=== PATIENT | male | born 1955 | race Caucasian/White ===

== ENCOUNTER → 2020-07-31 10:29 | Outpatient (BNVA) | payer OTHER, SELFPAY | PROVIDERS: PCP Family Medicine; Referring Provider Family Medicine; Visit Provider Internal Medicine Cardiovascular Disease | DX: I48.0 Paroxysmal atrial fibrillation (principal); I10 Essential (primary) hypertension; Z79.01 Long term (current) use of anticoagulants; Z79.899 Other long term (current) drug therapy | CPT/HCPCS: 93005 ==

== ENCOUNTER → 2020-08-11 08:21 | Outpatient (REF) | payer OTHER, SELFPAY ==
--- NOTE | 2020-08-11 | NM_ITS ---
EXERCISE MYOCARDIAL PERFUSION STUDY INDICATION: Atrial fibrillation, on flecainide, assess for coronary disease and ischemia TECHNIQUE: The patient was brought in for an exercise perfusion study on 08/11/2020. Patient performed exercise as per Jian protocol and was injected 30 mCi of sestamibi once target heart rate was achieved. Images were obtained using the SPECT gamma camera interlaced with the gating device. Images were obtained in supine position. Resting perfusion study was performed on 08/12/2020. Patient was administered 30 mCi of sestamibi intravenously at rest. Images were then obtained in supine position. Total DLP 90mGy-cm. Images were processed with the software and compared side to side in short axis, horizontal long axis and vertical long axis views. FINDINGS: Raw images were reviewed. The stress perfusion study showed no significant perfusion abnormality. Both uncorrected as well as CT attenuation corrected images were reviewed. The gated study shows normal LV systolic function with calculated LVEF of 66%. LV cavity is normal in size. The gated study shows normal wall thickening and contraction of segments. Resting study shows diminished tracer uptake along the inferior wall that improves with CT attenuation correction, suggesting diaphragmatic artifact. Gating at rest reveals normal wall motion with ejection fraction at 58%. The findings are consistent with no definite reversible or fixed perfusion defects. NM/NM ken perf SPECT rest & str IMPRESSION: 1. Myocardial perfusion imaging study shows likely normal myocardial perfusion. No definitive evidence of any ischemia or infarction. 2. Gated LVEF is 66% during stress and 58% during rest. 3. Transient ischemic dilatation not present. EKG component of the test reported separately.
--- NOTE | 2020-08-11 08:25 | CA_ITS ---
Acquisition Time: 2020-08-11 09:37:17 Total Exercise Time: 00:06:04 Test Indications: Abnormal ECG Medications: AMLODIPINE FLECAINIDE METOPROLOL LISINOPRIL/HCTZ ELIQUIS TRAZADONE ALBUTROL Protocol: VINCENZO Max HR: 139 BPM 88% of Pred: 157 BPM Max BP: 138/080 mmHG Max Work Load: 7.2 METS Exercise nuclear using Vincenzo protocol total of 6 min 4 sec.METS 7.2 . Pt tolerated well, denies any anginal sx. EKG with occ. PVC's in recovery period. No ischemic changes. Nuclear images to follow. Normotensive response to exercise. Test reviewed with Dr. Galaviz. Referred By: Lyn Rojo Overread By: Kin Smith
== END ==
LOC: HO.CARD 08:21
PROVIDERS: PCP Family Medicine; Visit Provider Nurse Practitioner Family
DX: I48.0 Paroxysmal atrial fibrillation (principal); I10 Essential (primary) hypertension
CPT/HCPCS: 78452; 93017; J2805

== ENCOUNTER 2020-09-02 | Outpatient (REF) | payer OTHER, SELFPAY | END 2020-09-02 00:01 | disposition home or self-care (01) | LOC: HO.LNP | PROVIDERS: Visit Provider Hospitalist | DX: Z20.828 Contact with and (suspected) exposure to other viral communicable diseases (principal) | CPT/HCPCS: U0003 ==

== ENCOUNTER 2020-09-23 10:18 | Outpatient (REF) | payer OTHER, SELFPAY ==
[2020-09-23 10:54] LABS: Basophils Percent Auto 0.6 % (0-2); Eosinophils Absolute Auto 0.1 X10*3/uL (0.0-0.4); Eosinophils Percent Auto 1.3 % (0-4); Hematocrit 41.8 % (42-52); Hemoglobin 14.3 g/dl (14.0-18.0); Imm Gran Abs Auto 0.01 X10*3/uL (0.00-0.03); Imm Gran Pct Auto 0.2 % (0.0-0.4); Lymphocytes Absolute Auto 3.5 X10*3/uL (1.2-4.9); Lymphocytes Percent Auto 56.6 % (20-40); Mean Corpuscular HGB Conc 34.2 g/dl (31.0-36.0); Mean Corpuscular Volume 99.5 fL (80-98); Mean Platelet Volume 9.6 fL (9.4-12.4); Monocytes Absolute Auto 0.5 X10*3/uL (0.1-1.2); Monocytes Percent Auto 8.1 % (2-11); Neutrophils Absolute Auto 2.1 X10*3/uL (2.0-8.3); Neutrophils Percent Auto 33.2 % (45-73); Platelet Count 177 X10*3/uL (160-400); Red Cell Distribution Width 12.5 % (11.0-16.0); SCAN SMEAR FLAG 1; White Blood Count 6.2 X10*3/uL (4.8-10.8)
[2020-09-23 11:20] LABS: Alanine Aminotransferase 18 U/L (0-40); Alkaline Phosphatase 80 U/L (39-117); Anion Gap 9 (12-20); Aspartate Amino Transferase 18 U/L (5-37); Bilirubin Total 0.6 mg/dL (0.0-1.0); Blood Urea Nitrogen 11 mg/dL (9-16); Calcium 8.7 mg/dL (8.4-10.2); Carbon Dioxide 32 mmol/L (22-29); Chloride 103 mmol/L (96-108); Estimated Glomerular Filt Rate > 60; Glucose Random 98 mg/dL (60-115); Potassium 3.8 mmol/l (3.3-5.1); Sodium 140 mmol/L (135-145); Total Protein 7.4 g/dL (6.5-8.0)
[2020-09-23 11:54] LABS: MANUAL DIFF FLAG SCAN
[2020-09-23 11:55] LABS: SLIDE REVIEW VERIFIED
== END 2020-09-23 10:19 | disposition home or self-care (01) ==
LOC: HO.WFDLDS 10:18
PROVIDERS: Visit Provider Family Medicine
DX: R53.83 Other fatigue (principal); Z00.00 Encounter for general adult medical examination without abnormal findings
CPT/HCPCS: 36415; 80053; 84443; 85025

== ENCOUNTER → 2020-10-27 12:47 | Outpatient (BNVA) | payer OTHER, SELFPAY | PROVIDERS: PCP Family Medicine; Visit Provider Internal Medicine Cardiovascular Disease | DX: I48.0 Paroxysmal atrial fibrillation (principal); I10 Essential (primary) hypertension; Z79.01 Long term (current) use of anticoagulants | CPT/HCPCS: 93005 ==

== ENCOUNTER → 2020-11-26 09:23 | Outpatient (REF) | payer OTHER, SELFPAY ==
--- NOTE | 2020-11-26 09:25 | CA_ITS ---
Transthoracic Echocardiogram Patient (Last, First, Middle): Price Florence A Gender: Male Date of : 1955 Age: 65 Procedure Date: 11/26/2020 Procedure Type: Transthoracic Echocardiogram Location: OP Height: 182.88 cm Weight: 97.52 kg BSA: 2.20 m2 Heart Rate: bpm BP: 118 / 56 mmHg Parcel Wrapper: Referring MD: Gonzalo Luna MD Opening Machine Cleaner: Khang Main MD Symptoms: I48.0 - Paroxysmal atrial fibrillation Study Quality: Fair ECG Rhythm: Sinus Conclusions: - Normal LV systolic function with grade 1 diastolic dysfunction Findings Left Ventricle Normal left ventricular size, thickness, and systolic function. The visually estimated ejection fraction is between 55-60%. Spectral Doppler is indicative of an impaired relaxation filling pattern. E/E prime ratio is <8, consistent with normal filling pressures. Evidence suggests grade I (mild) diastolic dysfunction. Right Ventricle Mildly increased right ventricular cavity size. There is normal right ventricular systolic function. Pericardium/Pleural There is no evidence of pericardial effusion. Prior Study Comparison Changes noted compared to prior study dated: 05/30/2020. LV systolic function is normal Measurements 2D Linear Measurements IVSd: 0.99 0.6-0.9/0.6-1.0 cm LVIDd: 4.51 3.9-5.3/4.2-5.9 cm LVIDd Index: 2.05 2.4-3.2/2.2-3.1 cm/m2 LVIDs: 3.17 2.0-3.6 cm LVPWd: 0.99 0.7-1.1 cm LV Mass: 249.23 67-162/88-224 g LV Mass Index: 113.28 43-95/49-115 g/m2 2D Systolic Function EF 4C: 50.30 >55% EF 2C: 49.20 >55% Tricuspid Valve TR Pk Higinio: 1.22 TR Pk Grad: 6.00 Updated in Other Vendor System with Status of Final Khang Main MD electronically signed on 11/27/2020 11:19:39 AM with status of Final
== END ==
LOC: HO.CARD 09:23
PROVIDERS: PCP Family Medicine; Visit Provider Internal Medicine Cardiovascular Disease
DX: I48.0 Paroxysmal atrial fibrillation (principal)
CPT/HCPCS: 93308

== ENCOUNTER 2020-12-26 14:08 | Outpatient (REF) | payer OTHER, SELFPAY ==
[2020-12-26 14:55] LABS: Creatinine Urine 193.67 mg/dL; Microalbum/Creatinine Ratio Ur 4.6 ug/mg cr
== END 2020-12-26 14:09 | disposition home or self-care (01) ==
LOC: HO.LNP 14:08
PROVIDERS: Visit Provider Family Medicine
DX: I10 Essential (primary) hypertension (principal)
CPT/HCPCS: 82043

== ENCOUNTER → 2021-01-14 14:22 | Outpatient (BNVA) | payer OTHER, SELFPAY | PROVIDERS: PCP Family Medicine; Visit Provider Internal Medicine Cardiovascular Disease ==

== ENCOUNTER 2021-05-28 11:26 | Outpatient (REF) | payer OTHER, SELFPAY ==
[2021-05-28 14:32] LABS: MANUAL DIFF FLAG NO
[2021-05-28 14:34] LABS: Basophils Percent Auto 0.5 % (0-2); Eosinophils Percent Auto 0.5 % (0-4); Hematocrit 44.3 % (42-52); Hemoglobin 15.5 g/dl (14.0-18.0); Imm Gran Abs Auto 0.03 X10*3/uL (0.00-0.03); Imm Gran Pct Auto 0.5 % (0.0-0.4); Lymphocytes Absolute Auto 1.6 X10*3/uL (1.2-4.9); Lymphocytes Percent Auto 27.2 % (20-40); Mean Corpuscular Hemoglobin 34.4 pg (27.0-33.0); Mean Corpuscular Volume 98.2 fL (80-98); Mean Platelet Volume 10.6 fL (9.4-12.4); Monocytes Absolute Auto 0.4 X10*3/uL (0.1-1.2); Monocytes Percent Auto 7.5 % (2-11); Neutrophils Absolute Auto 3.8 X10*3/uL (2.0-8.3); Neutrophils Percent Auto 63.8 % (45-73); Platelet Count 206 X10*3/uL (160-400); Red Blood Count 4.51 X10*6/uL (4.60-5.80); White Blood Count 5.9 X10*3/uL (4.8-10.8)
[2021-05-28 15:02] LABS: Cholesterol 191 mg/dL; HDL Cholesterol 45 mg/dL; LDL Cholesterol Calculated 130 mg/dl; Triglycerides 83 mg/dL
[2021-05-28 15:23] LABS: Prostate Specific Antigen Scr 2.07 ng/mL (<0.05-4.0); TSH reflex Free T4 1.08 uIU/mL (0.32-4.0)
== END 2021-05-28 11:27 | disposition home or self-care (01) ==
LOC: HO.WFDLDS 11:26
PROVIDERS: Visit Provider Family Medicine
DX: Z00.00 Encounter for general adult medical examination without abnormal findings (principal); Z12.5 Encounter for screening for malignant neoplasm of prostate
CPT/HCPCS: 36415; 80061; 84153; 84443; 85025

== ENCOUNTER → 2021-07-16 09:58 | Outpatient (BNVA) | payer OTHER, SELFPAY | PROVIDERS: PCP Family Medicine; Referring Provider Family Medicine; Visit Provider Internal Medicine Cardiovascular Disease ==

== ENCOUNTER → 2022-01-25 10:36 | Outpatient (BNVA) | payer MEDICARE, SELFPAY | PROVIDERS: PCP Family Medicine; Referring Provider Family Medicine; Visit Provider Internal Medicine Cardiovascular Disease | DX: I48.0 Paroxysmal atrial fibrillation (principal); I10 Essential (primary) hypertension | CPT/HCPCS: 93005; Q3014 ==

== ENCOUNTER 2022-05-27 07:06 | Outpatient (REF) | payer MEDICARE, SELFPAY ==
[2022-05-27 11:21] LABS: MANUAL DIFF FLAG NO
[2022-05-27 11:30] LABS: Basophils Absolute Auto 0.1 X10*3/uL (0.0-0.2); Basophils Percent Auto 1.2 % (0-2); Eosinophils Absolute Auto 0.3 X10*3/uL (0.0-0.4); Eosinophils Percent Auto 5.7 % (0-4); Hematocrit 43.8 % (42.0-52.0); Hemoglobin 15.2 g/dl (14.0-18.0); Imm Gran Abs Auto 0.01 X10*3/uL (0.00-0.03); Imm Gran Pct Auto 0.2 % (0.0-0.4); Lymphocytes Absolute Auto 2.3 X10*3/uL (1.2-4.9); Lymphocytes Percent Auto 38.7 % (20-40); Mean Corpuscular HGB Conc 34.7 g/dl (31.0-36.0); Mean Corpuscular Hemoglobin 33.9 pg (27.0-33.0); Mean Corpuscular Volume 97.8 fL (80.0-98.0); Mean Platelet Volume 10.9 fL (9.4-12.4); Monocytes Absolute Auto 0.5 X10*3/uL (0.1-1.2); Monocytes Percent Auto 7.9 % (2-11); Neutrophils Absolute Auto 2.8 x10*3/uL (2.0-8.3); Neutrophils Percent Auto 46.3 % (45-73); Platelet Count 208 X10*3/uL (160-400); Red Blood Count 4.48 X10*6/uL (4.60-5.80); Red Cell Distribution Width 12.6 % (11.0-16.0)
[2022-05-27 12:14] LABS: Alanine Aminotransferase 13 U/L (0-40); Albumin Level 3.8 g/dL (3.5-5.0); Alkaline Phosphatase 59 U/L (39-117); Anion Gap 12 (12-20); Aspartate Amino Transferase 16 U/L (5-37); Bilirubin Total 1.1 mg/dL (0.0-1.0); Blood Urea Nitrogen 15 mg/dL (9-16); Calcium 8.8 mg/dL (8.4-10.2); Carbon Dioxide 28 mmol/L (22-29); Chloride 106 mmol/L (96-108); Cholesterol 215 mg/dL; Estimated Glomerular Filt Rate > 60; Glucose Fasting 92 mg/dL (60-99); HDL Cholesterol 45 mg/dL; LDL Cholesterol Calculated 147 mg/dl; Potassium 3.3 mmol/L (3.3-5.1); Sodium 143 mmol/L (135-145); Total Protein 6.9 g/dL (6.5-8.0); Triglycerides 119 mg/dL
[2022-05-27 12:17] LABS: Prostate Specific Antigen Scr 3.14 ng/mL (<0.05-4.0); TSH reflex Free T4 1.88 uIU/mL (0.32-4.0)
[2022-05-27 13:46] LABS: Appearance Urine Clear; Color Urine Yellow; Glucose Urine UA Negative (Negative); Leukocyte Esterase Urine Moderate (2+) (Negative); Nitrite Urine Negative (Negative); Urine Blood Negative (Negative); Urine Ketones Trace mg/dL (Negative); Urine Protein Trace mg/dL (Neg-Trace)
[2022-05-27 14:14] LABS: Bacteria Urine None Seen (None Seen); Hyaline Casts Urine 0-2 /LPF (0-2); RBC Urine 0-2 /HPF (0-2); Squamous Epithelial Cell Urine 0-2 /HPF (0-2); WBC Urine 0-5 /HPF (0-5)
== END 2022-05-27 07:07 | disposition home or self-care (01) ==
LOC: HO.WFDLDS 07:06
PROVIDERS: Visit Provider Family Medicine
DX: Z00.00 Encounter for general adult medical examination without abnormal findings (principal); Z12.5 Encounter for screening for malignant neoplasm of prostate
CPT/HCPCS: 36415; 80053; 80061; 81001; 81003; 84153; 84443; 85025

== ENCOUNTER → 2022-05-31 10:41 | Outpatient (BNVA) | payer MEDICARE, SELFPAY | PROVIDERS: PCP Family Medicine; Referring Provider Family Medicine; Visit Provider Internal Medicine Cardiovascular Disease | DX: I48.0 Paroxysmal atrial fibrillation (principal); I10 Essential (primary) hypertension; R10.11 Right upper quadrant pain; Z79.899 Other long term (current) drug therapy | CPT/HCPCS: 93005; 99212 ==

== ENCOUNTER 2022-07-19 08:18 | Outpatient (REF) | payer MEDICARE, SELFPAY ==
--- NOTE | ~2022-07-19 | US_ITS ---
EXAMINATION: US ABDOMEN COMPLETE CLINICAL INFORMATION: Right upper quadrant pain. COMPARISON: None TECHNIQUE: Real-time imaging of the abdominal viscera. FINDINGS: PANCREAS: Normal. ABDOMINAL AORTA: The proximal, mid, and distal segments are normal in caliber. INFERIOR VENA CAVA: Visualized portions are normal. LIVER: The liver is enlarged measuring 18.5 cm. The liver contour is normal. Parenchymal echogenicity is normal. No focal hepatic lesion. There is no intrahepatic biliary duct dilatation seen. Prominent vessels are seen at the kellee hepatis. GALLBLADDER: There is focal thickening of the neck with no echogenic stones. There is mild wall thickening. The gallbladder is physiologically distended without evidence of stones, sludge, polyps, or pericholecystic fluid. COMMON BILE DUCT: Normal in caliber measuring 0.6 cm in diameter. RIGHT KIDNEY: Normal. No hydronephrosis. No renal calculi or focal parenchymal lesions. The kidney measures 12.7 cm in maximum dimension. LEFT KIDNEY: Normal. No hydronephrosis. No renal calculi or focal parenchymal lesions. The kidney measures 11.8 cm in maximum dimension. SPLEEN: The spleen is enlarged The spleen measures 13.8 cm in maximum dimension. FREE FLUID: None. US/US abdomen complete IMPRESSION: 1. Focal thickening of the gallbladder neck with no echogenic stones. There is mild wall thickening. 2. Mild hepatosplenomegaly without focal lesion. 3. Rest of the abdominal ultrasound is unremarkable.
== END 2022-07-19 08:19 | disposition home or self-care (01) ==
LOC: HO.US 08:18
PROVIDERS: Visit Provider Internal Medicine Cardiovascular Disease
DX: R10.11 Right upper quadrant pain (principal)
CPT/HCPCS: 76700

== ENCOUNTER 2022-07-22 07:08 | Outpatient (REF) | payer MEDICARE, SELFPAY ==
[2022-07-22 12:24] LABS: Cholesterol 177 mg/dL; HDL Cholesterol 42 mg/dL; LDL Cholesterol Calculated 115 mg/dl; Triglycerides 100 mg/dL
== END 2022-07-22 07:09 | disposition home or self-care (01) ==
LOC: HO.WFDLDS 07:08
PROVIDERS: Visit Provider Family Medicine
DX: Z00.00 Encounter for general adult medical examination without abnormal findings (principal); E78.00 Pure hypercholesterolemia, unspecified
CPT/HCPCS: 36415; 80061

== ENCOUNTER 2022-07-28 12:33 | Outpatient (REF) | payer MEDICARE, SELFPAY ==
[2022-07-28 13:48] LABS: MANUAL DIFF FLAG NO
[2022-07-28 14:02] LABS: Basophils Percent Auto 0.7 % (0-2); Eosinophils Absolute Auto 0.1 X10*3/uL (0.0-0.4); Eosinophils Percent Auto 1.7 % (0-4); Hematocrit 41.5 % (42.0-52.0); Hemoglobin 14.9 g/dl (14.0-18.0); Imm Gran Abs Auto 0.01 X10*3/uL (0.00-0.03); Imm Gran Pct Auto 0.2 % (0.0-0.4); Lymphocytes Absolute Auto 1.7 X10*3/uL (1.2-4.9); Lymphocytes Percent Auto 27.8 % (20-40); Mean Corpuscular HGB Conc 35.9 g/dl (31.0-36.0); Mean Corpuscular Hemoglobin 35.7 pg (27.0-33.0); Mean Corpuscular Volume 99.5 fL (80.0-98.0); Mean Platelet Volume 10.8 fL (9.4-12.4); Monocytes Absolute Auto 0.4 X10*3/uL (0.1-1.2); Monocytes Percent Auto 6.2 % (2-11); Neutrophils Absolute Auto 3.8 x10*3/uL (2.0-8.3); Neutrophils Percent Auto 63.4 % (45-73); Platelet Count 194 X10*3/uL (160-400); Red Blood Count 4.17 X10*6/uL (4.60-5.80)
[2022-07-28 14:31] LABS: Alanine Aminotransferase 14 U/L (0-40); Albumin Level 3.8 g/dL (3.5-5.0); Alkaline Phosphatase 68 U/L (39-117); Anion Gap 15 (12-20); Aspartate Amino Transferase 16 U/L (5-37); Bilirubin Total 0.6 mg/dL (0.0-1.0); Blood Urea Nitrogen 16 mg/dL (9-16); Calcium 8.6 mg/dL (8.4-10.2); Carbon Dioxide 26 mmol/L (22-29); Chloride 104 mmol/L (96-108); Estimated Glomerular Filt Rate > 60; Glucose Random 124 mg/dL (60-115); Lipase 20 U/L (8-78); Potassium 3.6 mmol/L (3.3-5.1); Sodium 141 mmol/L (135-145)
[2022-07-29 07:46] LABS: HBS Num1 81.42 mIU/mL (0-7.99); HBc Num1 0.13 S/CO (0.00-0.79); HBsAGNum1 0.28 S/CO (0.00-0.99); Hepatitis B Core Antibody Nonreactive (Nonreactive); Hepatitis B Surface Antigen Negative (Negative); ~HepC Num1 0.09 S/CO (0.00-0.79); ~Hepatitis B Surface Antibody REACTIVE (Nonreactive); ~Hepatitis C Antibody Nonreactive (Nonreactive)
== END 2022-07-28 12:34 | disposition home or self-care (01) ==
LOC: HO.WFDLDS 12:33
PROVIDERS: Visit Provider Family Medicine
DX: Z00.00 Encounter for general adult medical examination without abnormal findings (principal); Z11.3 Encounter for screening for infections with a predominantly sexual mode of transmission; R10.11 Right upper quadrant pain
CPT/HCPCS: 36415; 80053; 83690; 85025; 86704; 86706; 86803; 87340

== ENCOUNTER → 2022-08-02 08:16 | Outpatient (REF) | payer MEDICARE, SELFPAY ==
--- NOTE | ~2022-08-02 | NM_ITS ---
EXAMINATION: BILIARY TRACT IMAGING STUDY WITH CCK CLINICAL INFORMATION: Right upper quadrant pain.. COMPARISON: No previous biliary scan is available for comparison. Abdominal ultrasound dated 07/19/2022 is available for comparison.. TECHNIQUE: Serial gamma scintillation camera images were obtained over the abdomen for a total observation period of 93 minutes following the intravenous administration of 5.0 mCi Tc-99m Mebrofenin. FINDINGS: There is good concentration of activity in the liver by 5 minutes post injection. Biliary activity is visualized by 15 minutes. The gallbladder is well visualized by 35 minutes. Small bowel is well visualized by 25 minutes. At 60 minutes post radiopharmaceutical injection, a 30-minute infusion of 1.9 micrograms Sincalide was then begun and an additional 40 minutes of images were obtained. There is good emptying of the gallbladder. By the end of the study there is good clearance of activity from the liver and visualization of diffuse small bowel activity. The calculated gallbladder ejection fraction is 38% (normal gallbladder ejection fraction is greater than 35%). NM/NM hepatobiliary w pharm IMPRESSION: Visualization of the gallbladder is evidence of a patent cystic duct and strong evidence against the diagnosis of acute cholecystitis. The common bile duct is patent. Gallbladder emptying and ejection fraction are normal. Liver function appears normal.
== END ==
LOC: HO.NUCMED 08:16
PROVIDERS: Visit Provider Family Medicine
DX: R10.11 Right upper quadrant pain (principal)
CPT/HCPCS: 78227; A9537; J2805

== ENCOUNTER 2022-08-06 15:07 | Outpatient (REF) | payer MEDICARE, SELFPAY ==
[2022-08-06 15:22] LABS: Immature Retic Fraction 5.4 % (2.3-13.4); Retic HGB Equivalent 40.3 pg (30.0-35.0); Reticulocyte Percent 1.2 % (0.5-1.8); Reticulocytes Absolute 0.051 X10*6/uL (0.026-0.095)
[2022-08-06 15:28] LABS: INTERNATIONAL NORM RATIO 1.3 (0.9-1.1); Prothrombin Time 15.3 SEC (10.0-13.1)
[2022-08-06 15:41] LABS: Alanine Aminotransferase 17 U/L (0-40); Alkaline Phosphatase 75 U/L (39-117); Aspartate Amino Transferase 20 U/L (5-37); Bilirubin Direct 0.2 mg/dL (0.0-0.5); Bilirubin Total 0.6 mg/dL (0.0-1.0); Gamma Glutamyl Transpeptidase 15 U/L (11-51); Lactate Dehydrogenase 182 U/L (118-273); Total Protein 7.1 g/dL (6.5-8.0)
== END 2022-08-06 15:08 | disposition home or self-care (01) ==
LOC: HO.LAB 15:07
PROVIDERS: PCP Family Medicine; Visit Provider Internal Medicine
DX: R16.0 Hepatomegaly, not elsewhere classified (principal); D64.9 Anemia, unspecified; R10.11 Right upper quadrant pain; Z79.899 Other long term (current) drug therapy; Z79.01 Long term (current) use of anticoagulants
CPT/HCPCS: 36415; 80076; 82977; 83615; 85045; 85610; 99202

== ENCOUNTER 2022-08-19 11:01 | Outpatient (REF) | payer MEDICARE, SELFPAY ==
--- NOTE | ~2022-08-19 | MR_ITS ---
EXAMINATION: MR ABDOMEN WITHOUT AND WITH CONTRAST CLINICAL INFORMATION: Hepatomegaly COMPARISON: Previous abdominal ultrasound and nuclear medicine hepatobiliary exam July 2022 TECHNIQUE: MR abdomen was performed without and with use of 10 mL intravenous Gadavist gadolinium contrast. Postcontrast images are performed in multiphase dynamic sequences. Imaging was performed in 3 planes. FINDINGS: LUNG BASES: The visualized lung bases are unremarkable. LIVER, GALLBLADDER, AND BILIARY TREE: The liver is slightly enlarged, right lobe measuring 20 cm in length. The liver is normal in contour. The liver is normal in signal. No focal liver lesion. No biliary duct dilatation. Normal-appearing gallbladder. No gallstones or gallbladder wall thickening. Normal caliber intrahepatic and extrahepatic bile ducts. The common bile duct measures 0.4 cm. PANCREAS: Normal pancreas. Normal main pancreatic duct. SPLEEN: Slightly enlarged measuring 14 cm in length. ADRENAL GLANDS: Normal. KIDNEYS AND URETERS: The kidneys are normal in size, shape, and enhance symmetrically. No hydronephrosis. Small bilateral renal cysts. No perinephric stranding. Bladder well-distended with question increased trabeculation. GASTROINTESTINAL TRACT: No bowel obstruction. No ascites or fluid collection. ABDOMINAL WALL: Umbilical hernia containing fat. LYMPH NODES: No lymphadenopathy. VASCULAR: Unremarkable. OSSEOUS STRUCTURES: Marrow signal normal. Degenerative changes of the spine. MR/MR abdomen wo/w con IMPRESSION: Mild hepatosplenomegaly. Normal-appearing gallbladder.
== END 2022-08-19 11:02 | disposition home or self-care (01) ==
LOC: HO.MRI 11:01
PROVIDERS: Visit Provider Internal Medicine
DX: R16.0 Hepatomegaly, not elsewhere classified (principal)
CPT/HCPCS: 74183; A9585

== ENCOUNTER → 2022-09-03 14:19 | Outpatient (BNVA) | payer MEDICARE, SELFPAY | PROVIDERS: PCP Family Medicine; Visit Provider Internal Medicine | DX: R10.11 Right upper quadrant pain (principal); R16.2 Hepatomegaly with splenomegaly, not elsewhere classified | CPT/HCPCS: 99212 ==

== ENCOUNTER 2022-09-06 07:09 | Outpatient (REF) | payer MEDICARE, SELFPAY ==
[2022-09-09 12:38] LABS: IgA 739 mg/dL (70-320); IgG 1216 mg/dL (600-1540); IgM 193 mg/dL (50-300)
[2022-09-14 14:28] LABS: Kappa, Serum 417 mg/dL (176-443); Kappa/Lambda Ratio, Serum 1.86 (1.29-2.55); Lambda, Serum 224 mg/dL (91-240)
== END 2022-09-06 07:10 | disposition home or self-care (01) ==
LOC: HO.WFDLDS 07:09
PROVIDERS: Visit Provider Internal Medicine
DX: R16.2 Hepatomegaly with splenomegaly, not elsewhere classified (principal)
CPT/HCPCS: 82784; 83883; 86334; 86335

== ENCOUNTER → 2022-09-13 09:19 | Outpatient (REF) | payer MEDICARE, SELFPAY ==
--- NOTE | 2022-09-13 09:21 | CA_ITS ---
Transthoracic Echocardiogram Patient (Last, First, Middle): Price Florence A Gender: Male Date of : 1955 Age: 66 Procedure Date: 09/13/2022 Procedure Type: Transthoracic Echocardiogram Location: OP Height: 182.88 cm Weight: 96.16 kg BSA: 2.18 m2 Heart Rate: 70 bpm BP: 125 / 80 mmHg Director Of Technology: NIKI Referring MD: Yamilex Mendoza MD Symptoms: R16.2 - Hepatomegaly with splenomegaly, not elsewhere classified Study Quality: Adequate ECG Rhythm: Sinus Conclusions: - The left ventricular systolic function is mildly decreased. The calculated ejection fraction is 48% by biplane method. - The basal inferior and basal inferoseptal segments are akinetic. - No obvious valvular pathology seen on this study. Findings Left Ventricle Normal left ventricular cavity size. There is mildly increased left ventricular wall thickness. The left ventricular systolic function is mildly decreased. The calculated ejection fraction is 48% by biplane method. There is evidence of regional wall motion abnormalities. Diastolic function is normal for age. Wall Motion Rest Echo Findings The basal inferior and basal inferoseptal segments are akinetic. Right Ventricle Normal right ventricular cavity size and systolic function. Top normal right ventricular size. Atria Both atria are normal in size. Aortic Valve There is a normal trileaflet aortic valve. There is no aortic valve stenosis. There is no aortic valve regurgitation. Mitral Valve The mitral valve appears normal. There is trace mitral valve regurgitation. There is no mitral valve stenosis. Pulmonic Valve The pulmonic valve is likely normal. Tricuspid Valve Normal tricuspid valve structure. There is no tricuspid valve regurgitation. Tricuspid regurgitation envelope is inadequate for calculation of right ventricular systolic pressure. Great Vessels The asc aorta is normal in size. Venous The inferior vena cava is normal in size and collapses greater than 50% with inspiration. Pericardium/Pleural There is no evidence of pericardial effusion. Prior Study Comparison No significant change compared to prior study dated: 11/26/2020. Images reviewed. Recommendations, Care & Conclusions No obvious valvular pathology seen on this study. Measurements 2D Linear Measurements IVSd: 1.15 0.6-0.9/0.6-1.0 cm LVIDd: 4.79 3.9-5.3/4.2-5.9 cm LVIDd Index: 2.20 2.4-3.2/2.2-3.1 cm/m2 LVIDs: 3.07 2.0-3.6 cm LVPWd: 1.03 0.7-1.1 cm LA Diam: 4.00 2.7-3.8/3.0-4.0 cm LAIDs Index: 1.83 1.5-2.3 cm/m2 LV Mass: 237.85 67-162/88-224 g LV Mass Index: 109.11 43-95/49-115 g/m2 LVOT Diam: 2.60 3.0+(-)1.3 cm 2D Systolic Function EF 4C: 48.80 >55% EF 2C: 52.60 >55% EF BiP: 48.00 >55% Mitral Valve MV Pk E: 0.50 MV PK A: 0.71 MV Decel Time: 179.00 E/A: 0.70 E'Lateral: 5.22 E'Medial: 5.11 E/E' Med: 9.70 E/E' Lat: 9.50 PHT: 52.00 MVA PHT: 4.23 Decel [place]: 2.77 Aortic Valve AoV Pk Higinio: 1.12 AoV Mn Hgiinio: 0.88 AoV VTI: 0.26 AoV Pk Grad: 5.00 Aov Mn Grad: 3.00 MANA Cont.VTI: 3.69 LVOT LVOT Pk Higinio: 0.79 LVOT Mn Higinio: 0.55 LVOT VTI: 0.18 LVOT Pk Grad: 3.00 LVOT Mn Grad: 1.00 LVOT Diam: 2.60 LVOT Area: 5.31 Diastolic Function MV Pk E: 0.50 MV Pk A: 0.71 E/A: 0.70 E'Medial: 5.11 E/E' Med: 9.70 E' Laterial: 5.22 E/E' Lat: 9.50 Right Ventricle TAPSE (mm): 27.20 TVS' Higinio: 12.90 Tricuspid Valve RA Press: 3.00 Great Vessels Aorta Sinus of Valsalva: 3.90 2.0-3.5 cm Ao Asc: 3.80 2.1-3.4 cm Pulmonary Valve PV Pk Higinio: 0.76 Peak PV Grad: 2.00 Updated in Other Vendor System with Status of Final Austin Galaviz MD electronically signed on 09/13/2022 11:59:09 AM with status of Final
== END ==
LOC: HO.CARD 09:19
PROVIDERS: Visit Provider Internal Medicine
DX: R16.2 Hepatomegaly with splenomegaly, not elsewhere classified (principal)
CPT/HCPCS: 93306; 93356

== ENCOUNTER 2022-09-21 11:27 | Day surgery (SDC) | payer MEDICARE, SELFPAY ==
[2022-09-21] VITALS (8 sets, daily range): BP systolic 115–132; BP diastolic 63–77; PULSE 59–67; RESP 16–18; TEMP 36.7; O2SAT 97–98; BMI 28.5
--- NOTE | ~2022-09-21 | US_ITS ---
PROCEDURE: US-GUIDED LIVER CORE BIOPSY CLINICAL INFORMATION: Hepatomegaly. COMPARISON: MRI of 08/19/2022 and ultrasound of 07/19/2022. TECHNIQUE: Ultrasound-guided liver biopsy. FINDINGS: Informed consent was obtained from the patient prior to the procedure. During this process, the procedure and potential alternatives were explained, along with the intended outcome and benefits. The risks of the procedure, as well as the risk of not doing the procedure, were discussed. The patient was given the opportunity to ask questions regarding the procedure and appeared competent to make medical decisions. A signed consent form which documents this discussion was placed in the medical record. Using sterile technique and ultrasound guidance, a 17-gauge guiding needle was directed into the left lobe of the liver. Two 18-gauge core biopsies were obtained and placed in the formalin. Patient tolerated procedure without difficulty. No post procedure hematoma or subcapsular fluid collection identified. US/US biopsy liver IMPRESSION: Ultrasound-guided core biopsy of the liver as described. CONSCIOUS SEDATION: The patient received intravenous conscious sedation under my direct supervision. A registered nurse monitored the patient and the patient's vital signs throughout the procedure. The total sedation time was 29 minutes. A total of 1 mg of Versed and 50 mcg fentanyl was given for good effect.
[2022-09-21 11:40] LABS: MANUAL DIFF FLAG NO
[2022-09-21 11:43] LABS: Basophils Absolute Auto 0.1 X10*3/uL (0.0-0.2); Basophils Percent Auto 0.6 % (0-2); Eosinophils Absolute Auto 0.1 X10*3/uL (0.0-0.4); Eosinophils Percent Auto 0.9 % (0-4); Hematocrit 42.9 % (42.0-52.0); Hemoglobin 14.8 g/dl (14.0-18.0); Imm Gran Abs Auto 0.03 X10*3/uL (0.00-0.03); Imm Gran Pct Auto 0.4 % (0.0-0.4); Lymphocytes Absolute Auto 2.2 X10*3/uL (1.2-4.9); Lymphocytes Percent Auto 25.4 % (20-40); Mean Corpuscular HGB Conc 34.5 g/dl (31.0-36.0); Mean Corpuscular Hemoglobin 33.6 pg (27.0-33.0); Mean Corpuscular Volume 97.5 fL (80.0-98.0); Mean Platelet Volume 9.9 fL (9.4-12.4); Monocytes Absolute Auto 0.7 X10*3/uL (0.1-1.2); Monocytes Percent Auto 8.3 % (2-11); Neutrophils Absolute Auto 5.5 x10*3/uL (2.0-8.3); Neutrophils Percent Auto 64.4 % (45-73); Platelet Count 238 X10*3/uL (160-400); Red Cell Distribution Width 11.8 % (11.0-16.0); White Blood Count 8.5 X10*3/uL (4.8-10.8)
[2022-09-21 11:52] LABS: INTERNATIONAL NORM RATIO 1.2 (0.9-1.1); Prothrombin Time 13.5 SEC (10.0-13.1)
[2022-09-21 11:54] LABS: Partial Thromboplastin Time 34.3 SEC (26.0-36.4)
[2022-09-21] MEDS: Lidocaine HCl 1 % MPF 5 ML VIAL 10 ML SUBCUT (14:19)
== END 2022-09-22 16:45 | disposition home or self-care (01) ==
PROVIDERS: Radiology Diagnostic Radiology; PCP Family Medicine; Visit Provider Radiology Diagnostic Radiology
DX: R16.2 Hepatomegaly with splenomegaly, not elsewhere classified (principal); R10.11 Right upper quadrant pain; I48.0 Paroxysmal atrial fibrillation; I10 Essential (primary) hypertension; Z88.8 Allergy status to other drugs, medicaments and biological substances; Z79.01 Long term (current) use of anticoagulants
CPT/HCPCS: 36415; 47000; 76942; 85025; 85610; 85730; 88307; 88313; 99152; 99153; J2250; J3010

== ENCOUNTER 2022-10-08 13:38 | Outpatient (REF) | payer MEDICARE, SELFPAY ==
[2022-10-08 15:02] LABS: Iron 76 mcg/dL (45-160); Percent Iron Saturation 35 % (15-50); Total Iron Binding Capacity 220 mcg/dL (228-428); Unsaturated Iron Binding 144 ug/dL
[2022-10-08 15:17] LABS: Ferritin 281 ng/mL (20-250)
== END 2022-10-08 13:39 | disposition home or self-care (01) ==
LOC: HO.LAB 13:38
PROVIDERS: PCP Family Medicine; Visit Provider Internal Medicine
DX: R16.2 Hepatomegaly with splenomegaly, not elsewhere classified (principal)
CPT/HCPCS: 36415; 82728; 83540

== ENCOUNTER → 2022-10-12 08:53 | Outpatient (BNVA) | payer MEDICARE, SELFPAY | PROVIDERS: PCP Family Medicine; Referring Provider Family Medicine; Visit Provider Internal Medicine | DX: R16.2 Hepatomegaly with splenomegaly, not elsewhere classified (principal); R53.83 Other fatigue; M79.89 Other specified soft tissue disorders; E83.119 Hemochromatosis, unspecified | CPT/HCPCS: 99212 ==

== ENCOUNTER 2022-11-24 09:06 | Outpatient (REF) | payer MEDICARE, SELFPAY | END 2022-11-24 09:07 | disposition home or self-care (01) | LOC: HO.LAB 09:06 | PROVIDERS: PCP Family Medicine; Visit Provider Internal Medicine | DX: R16.2 Hepatomegaly with splenomegaly, not elsewhere classified (principal) | CPT/HCPCS: 36415; 81256 ==

== ENCOUNTER → 2023-01-12 09:25 | Outpatient (BNVA) | payer MEDICARE, SELFPAY | PROVIDERS: PCP Family Medicine; Referring Provider Family Medicine; Visit Provider Internal Medicine Cardiovascular Disease | DX: I42.9 Cardiomyopathy, unspecified (principal); I48.0 Paroxysmal atrial fibrillation; E83.119 Hemochromatosis, unspecified | CPT/HCPCS: 93005; 99212 ==

== ENCOUNTER 2023-01-28 13:06 | Outpatient (REF) | payer MEDICARE, SELFPAY | END 2023-01-28 13:07 | disposition home or self-care (01) | LOC: HO.HOSX 13:06 | PROVIDERS: Visit Provider Physician Assistant | DX: Z13.89 Encounter for screening for other disorder (principal) ==

== ENCOUNTER 2023-02-04 09:17 | Outpatient (REF) | payer MEDICARE, SELFPAY ==
--- NOTE | ~2023-02-04 | US_ITS ---
EXAMINATION: US ABDOMEN COMPLETE CLINICAL INFORMATION: Hepatomegaly with splenomegaly, not elsewhere classified. COMPARISON: MRI abdomen 08/19/2022. Ultrasound abdomen complete 07/19/2022. TECHNIQUE: Real-time imaging of the abdominal viscera. FINDINGS: PANCREAS: The head and body appear normal. The tail is obscured by bowel gas. ABDOMINAL AORTA: The proximal, mid, and distal segments are normal in caliber. INFERIOR VENA CAVA: Visualized portions are normal. LIVER: The liver is mildly enlarged measuring 17.9 cm. The liver contour is normal. Parenchymal echogenicity is normal. No focal hepatic lesion. There is no intrahepatic biliary duct dilatation seen. GALLBLADDER: No cholelithiasis. There is stable mild gallbladder wall thickening/edema of uncertain etiology. The patient was tender over the gallbladder. COMMON BILE DUCT: Normal in caliber measuring 0.4 cm in diameter. RIGHT KIDNEY: 1.0 cm nonobstructing calculus in the mid kidney. No hydronephrosis or focal parenchymal lesions. The kidney measures 12.6 cm in maximum dimension. LEFT KIDNEY: Normal. No hydronephrosis. No renal calculi or focal parenchymal lesions. The kidney measures 11.2 cm in maximum dimension. SPLEEN: The spleen is mildly enlarged measuring 13.8 cm. FREE FLUID: None. US/US abdomen complete IMPRESSION: Mild hepatosplenomegaly. Stable mild gallbladder wall thickening/edema of uncertain etiology. No cholelithiasis. The patient reported tenderness over the gallbladder.
== END 2023-02-04 09:18 | disposition home or self-care (01) ==
LOC: HO.US 09:17
PROVIDERS: PCP Family Medicine; Visit Provider Internal Medicine
DX: R16.2 Hepatomegaly with splenomegaly, not elsewhere classified (principal)
CPT/HCPCS: 76700

== ENCOUNTER 2023-02-07 10:42 | Outpatient (REF) | payer MEDICARE, SELFPAY ==
--- NOTE | ~2023-02-07 | XR_ITS ---
EXAMINATION: XR ANKLE, LEFT CLINICAL INFORMATION: Pain COMPARISON: None available. TECHNIQUE: AP, lateral, and mortise views of the left ankle. FINDINGS: Nondisplaced fracture of the inferior lateral malleolus. No other fracture is seen. Normal ankle mortise. Plantar calcaneal spur. Soft tissue arterial calcification. XR/XR ankle LT min 3V IMPRESSION: Nondisplaced left lateral malleolar fracture.
== END 2023-02-07 10:43 | disposition home or self-care (01) ==
LOC: HO.HOSX 10:42
PROVIDERS: Visit Provider Physician Assistant
DX: S82.832A Other fracture of upper and lower end of left fibula, initial encounter for closed fracture (principal)
CPT/HCPCS: 73610; 99202

== ENCOUNTER → 2023-02-16 09:06 | Outpatient (BNV) | payer MEDICARE, SELFPAY | PROVIDERS: PCP Family Medicine; Visit Provider Internal Medicine | DX: E83.119 Hemochromatosis, unspecified (principal) | CPT/HCPCS: 99204; 99213; 99214; G2211 ==

== ENCOUNTER 2023-02-23 09:27 | Outpatient (REF) | payer MEDICARE, SELFPAY ==
[2023-02-23 11:21] LABS: MANUAL DIFF FLAG NO
[2023-02-23 11:29] LABS: Basophils Absolute Auto 0.1 X10*3/uL (0.0-0.2); Eosinophils Absolute Auto 0.2 X10*3/uL (0.0-0.4); Eosinophils Percent Auto 3.3 % (0-4); Hematocrit 39.3 % (42.0-52.0); Hemoglobin 13.6 g/dl (14.0-18.0); Imm Gran Abs Auto 0.02 X10*3/uL (0.00-0.03); Imm Gran Pct Auto 0.4 % (0.0-0.4); Lymphocytes Absolute Auto 1.5 X10*3/uL (1.2-4.9); Lymphocytes Percent Auto 31.4 % (20-40); Mean Corpuscular HGB Conc 34.6 g/dl (31.0-36.0); Mean Corpuscular Hemoglobin 33.8 pg (27.0-33.0); Mean Corpuscular Volume 97.8 fL (80.0-98.0); Mean Platelet Volume 10.1 fL (9.4-12.4); Monocytes Absolute Auto 0.5 X10*3/uL (0.1-1.2); Monocytes Percent Auto 9.4 % (2-11); Neutrophils Absolute Auto 2.7 x10*3/uL (2.0-8.3); Neutrophils Percent Auto 54.5 % (45-73); Platelet Count 235 X10*3/uL (160-400); Red Blood Count 4.02 X10*6/uL (4.60-5.80); Red Cell Distribution Width 12.1 % (11.0-16.0); White Blood Count 4.9 X10*3/uL (4.8-10.8)
[2023-02-23 12:23] LABS: Alanine Aminotransferase 13 U/L (0-40); Albumin Level 3.6 g/dL (3.5-5.0); Alkaline Phosphatase 90 U/L (39-117); Anion Gap 10 (12-20); Aspartate Amino Transferase 14 U/L (5-37); Bilirubin Total 0.6 mg/dL (0.0-1.0); Blood Urea Nitrogen 15 mg/dL (9-16); Carbon Dioxide 30 mmol/L (22-29); Chloride 107 mmol/L (96-108); Estimated Glomerular Filt Rate > 60; Glucose Random 103 mg/dL (60-115); Potassium 3.4 mmol/L (3.3-5.1); Sodium 144 mmol/L (135-145); Total Protein 7.1 g/dL (6.5-8.0); Uric Acid 7.9 mg/dL (3.4-7.0)
== END 2023-02-23 09:28 | disposition home or self-care (01) ==
LOC: HO.WFDLDS 09:27
PROVIDERS: Visit Provider Family Medicine
DX: Z00.00 Encounter for general adult medical examination without abnormal findings (principal); M10.9 Gout, unspecified
CPT/HCPCS: 36415; 80053; 84550; 85025

== ENCOUNTER 2023-03-03 08:02 | Outpatient (REF) | payer MEDICARE, SELFPAY | END 2023-03-03 08:03 | disposition home or self-care (01) | LOC: HO.BBR 08:02 | PROVIDERS: PCP Family Medicine; Visit Provider Internal Medicine | DX: Z13.89 Encounter for screening for other disorder (principal) ==

== ENCOUNTER → 2023-03-08 10:25 | Outpatient (BNVA) | payer MEDICARE, SELFPAY | PROVIDERS: PCP Family Medicine; Referring Provider Internal Medicine; Visit Provider Surgery | DX: S82.832D Other fracture of upper and lower end of left fibula, subsequent encounter for closed fracture with routine healing (principal); K42.9 Umbilical hernia without obstruction or gangrene; R10.9 Unspecified abdominal pain | CPT/HCPCS: 99202; 99212 ==

== ENCOUNTER 2023-03-11 13:42 | Outpatient (REF) | payer MEDICARE, SELFPAY ==
[2023-03-14 21:48] LABS: Ceruloplasmin 24 mg/dL (18-36)
== END 2023-03-11 13:43 | disposition home or self-care (01) ==
LOC: HO.LAB 13:42
PROVIDERS: PCP Family Medicine; Visit Provider Internal Medicine
DX: R16.2 Hepatomegaly with splenomegaly, not elsewhere classified (principal); R53.83 Other fatigue; M79.89 Other specified soft tissue disorders; E83.119 Hemochromatosis, unspecified; I48.91 Unspecified atrial fibrillation; Z79.899 Other long term (current) drug therapy; Z79.01 Long term (current) use of anticoagulants
CPT/HCPCS: 36415; 82390; 99212

== ENCOUNTER 2023-04-04 08:20 | Day surgery (SDC) | payer MEDICARE, SELFPAY ==
[2023-03-30 15:13] VITALS: BMI 28.9
--- NOTE | 2023-04-01 09:58 | HO.ANESPROP2 ---
Documented by User: Alda Bearden NP 04/01/23 10:11 HPI - Anesthesia Eval Consult details Narrative: 67yo M for Cholecystectomy Laparoscopic,poss open, Hernia Repair Umbilical Eliquis for afib Cardiac optimized. Follows for PAF (stable), CMP (Cardiac MRI pending. Recent decrease in EF. Recent dx of hemochromatosis. ? infiltrative cardiomyopathy d/t iron deposits. OK to proceed with surgery prior to MRI per air traffic control manager.) Hemachromatosis (new dx 11/2022) with therapeutic phlebotomy 03/03/23 COUNT INCLUDES THE [facility] Active Problems Active Problems: All Active Problems (Updated 03/30/23 @ 15:15 by Elenita Rosa RN) Encounter for screening laboratory testing for COVID-19 virus in asymptomatic patient (Acute) Fatigue (Acute) Immunization counseling (Acute) Laboratory examination ordered as part of a routine general medical examination (Acute) Encounter for general adult medical examination without abnormal findings (Acute) Screening for prostate cancer (Acute) Screening for colon cancer (Acute) Anxiety and depression (Acute) Right upper quadrant pain (Acute) Hypercholesterolemia (Acute) Hepatomegaly (Acute) Foot swelling (Acute) Hepatosplenomegaly (Acute) Hemochromatosis (Acute) Cardiomyopathy (Acute) Closed fracture of left distal fibula (Acute) Thickening of wall of gallbladder (Acute) Abdominal pain (Acute) Gout (Acute) Umbilical hernia (Acute) Anticoagulant long-term use (Acute) HTN (hypertension) (Acute) PAF (paroxysmal atrial fibrillation) (Acute) Past Medical History Medical History (Updated 03/30/23 @ 15:15 by Elenita Rosa RN) Anticoagulant long-term use Broken fibula Cardiomyopathy Gout Hemochromatosis Hepatomegaly HTN (hypertension) PAF (paroxysmal atrial fibrillation) Family History Family History Father Diabetes Mother Afib Cardiac pacemaker Brother Afib Sister Afib Uterine cancer Surgical History Surgical History (Updated 03/30/23 @ 15:08 by Elenita Rosa RN) History of esophagogastroduodenoscopy (EGD) History of liver biopsy History of right mastoidectomy Hx of colonoscopy Social History Social History Household Members: Spouse Housing: House Alcohol intake: current Alcohol intake frequency: a few times a week Alcohol type: beer Patient Tobacco Use Status: Never used Tobacco e-Cigarette/Vaping Use: Never Used Second Hand Smoke Exposure: No Use of substances other than those prescribed or required for medical reasons: No Are you DNR?: No Advance Directives: No Advance Directives Information Provided: Yes Recently lost weight without trying: No Nutrition Risks: No Nutritional Risk service: No Current occupational status: retired Current occupational exposures/hazards: No Cognitive needs: No Hearing needs: No Vision needs: No Meds Allergies Allergy/AdvReac Type Severity Reaction Status Date / Time atorvastatin Allergy Severe cognitive Verified 03/11/23 13:55 decline Exam Exam Date and Time: April 01, 2023 0958 Height,Weight and Vital Signs: Height 6 ft Weight 96.615 kg Pertinent Lab Results Pertinent Lab Results: Laboratory Tests 02/23/23 02/23/23 09:30 09:30 WBC 4.9 Hgb 13.6 L Hct 39.3 L Plt Count 235 Sodium 144 Potassium 3.4 Chloride 107 Carbon Dioxide 30 H BUN 15 Creatinine 0.89 Narrative Narrative: EKG 01/2023 Sinus rhythm 60 beats per minute, leftward axis, first-degree AV block with MO interval of 270 milliseconds, interventricular conduction delay with QRS 124 milliseconds, QTC 426 milliseconds. ECHO 09/2022 Conclusions: - The left ventricular systolic function is mildly decreased.? ? The calculated ejection fraction is 48% by biplane method. ? ? ? - The basal inferior and basal inferoseptal segments are ? akinetic.? - No obvious valvular pathology seen on this study.?? Assessment and Plan Assessment Anesthesia Assessment: Chart Reviewed Documented by User: Laverne Carranza MD 04/04/23 09:59 PMFSH Past Medical History Medical History (Updated 03/30/23 @ 15:15 by Elenita Rosa RN) Anticoagulant long-term use Broken fibula Cardiomyopathy Gout Hemochromatosis Hepatomegaly HTN (hypertension) PAF (paroxysmal atrial fibrillation) Family History Family History Father Diabetes Mother Afib Cardiac pacemaker Brother Afib Sister Afib Uterine cancer Family history of problems with anesthesia: No Surgical History Surgical History (Updated 03/30/23 @ 15:08 by Elenita Rosa RN) History of esophagogastroduodenoscopy (EGD) History of liver biopsy History of right mastoidectomy Hx of colonoscopy History of Problems with Anesthesia: No Social History Social History Household Members: Spouse Housing: House Alcohol intake: current Alcohol intake frequency: a few times a week Alcohol type: beer Patient Tobacco Use Status: Never used Tobacco e-Cigarette/Vaping Use: Never Used Second Hand Smoke Exposure: No Use of substances other than those prescribed or required for medical reasons: No Are you DNR?: No Advance Directives: No Advance Directives Information Provided: Yes Recently lost weight without trying: No Nutrition Risks: No Nutritional Risk service: No Current occupational status: retired Current occupational exposures/hazards: No Cognitive needs: No Hearing needs: No Vision needs: No Meds Allergies Allergy/AdvReac Type Severity Reaction Status Date / Time atorvastatin Allergy Severe cognitive Verified 03/11/23 13:55 decline Exam Airway Mallampati Class: II TM Dist: >3cm Neck ROM: Full Loose/Missing/Broken Teeth: No Heart: rr Lungs: cta Assessment and Plan Assessment Anesthesia Assessment: Anesthesia Plan Discussed Final Anesthetic Review Family History of Problems with Anesthesia: No History of Problems with Anesthesia: No NPO: Yes ASA Class: II Final Preanesthetic Review: No Changes in Pt Med Stat, Meds/Allgs Chart Reviewed, Consent Obtained/Reviewed and Anes Risks/Benef Reviewed Procedure Risk: Intermediate Anesthetic Plan Anesthetic Plan: GA and Agree w/ Assess. and Plan Disposition: Standard PACU
--- NOTE | 2023-04-01 16:26 | MHC.SHP ---
Pre-Procedural Eval Section A Date of Service: 04/01/23 The patient is an INPATIENT: No Changes since office visit: No Cold of Flu in the past 2 weeks, No New Medical Problems, No Changes in Medication and No Patient answered all questions The History & Physical has been completed within 30 days and I have reviewed it.: Yes Section B Chief Complaint: Umbilical hernia w/o obstruction or gangrene,abd p Allergies: Allergies Allergy/AdvReac Type Severity Reaction Status Date / Time atorvastatin Allergy Severe cognitive Verified 03/11/23 13:55 decline Plan I have reviewed the history and physical and performed a pertinent physical examination on my patient. No changes have occurred unless specified. Time Spent With Patient Time: Total time managing care of this patient today ____ minutes.
[2023-04-04 08:46] VITALS: BMI 29.2
[2023-04-04 08:53] VITALS: BP 142/89; PULSE 69; RESP 16; TEMP 36.5; O2SAT 95
[2023-04-04 11:26] VITALS: BP 134/74; PULSE 75; RESP 16; TEMP 36.3; O2SAT 96
--- NOTE | 2023-04-04 11:26 | W.PM.OPN ---
Operative Note Operative Note Date of Service: 04/04/23 Narrative: Preoperative diagnosis: [] Recurrent biliary colic, incarcerated umbilical hernia Postop diagnosis: [] Same Procedure [] laparoscopic cholecystectomy, primary repair of incarcerated umbilical hernia Surgeon: [] [employer] Repairer: [] regino Manriquez Type of Anesthesia: [] General Indication for surgery: [] Intraoperative findings demonstrated dense omental adhesions of omentum to the gallbladder. Markedly intrahepatic gallbladder. Incarcerated omental contents and umbilical hernia; defect measuring approximately 2 cm. Findings: [] Patient brought to the operating room, placed on operative table in supine position, after adequate level of general anesthesia was induced, the patient's abdomen was prepped and draped in usual sterile fashion. Using an infraumbilical curvilinear incision, this was carried down through skin, subcutaneous tissue, and the hernia sac was dissected off the posterior aspect of the umbilicus. Dissection was then carried down to the fascia with the sac was opened where the sac and incarcerated omentum were amputated using Bovie. Specimen sent to pathology. Greco technique was then used to insufflate the abdominal cavity 15 mm of CO2. Upper midline and right subcostal ports were placed under direct laparoscopic view, and the patient was placed in reverse Trendelenburg position, tilted to the left. Gallbladder was grasped using laparoscopic graspers, and retracted superiorly and laterally. Soft omental adhesions were swept off the gallbladder where it's was hilum was approached. Cystic artery and cystic duct reach identified, circumferentially dissected out and skeletonized, and each traced directly into the gallbladder and critical view obtained. Each was clipped proximally x2, distally x1, and transected. Gallbladder was then cauterized from the gallbladder fossa using Bovie. It was Markedly intrahepatic gallbladder. Specimen was placed in an Endo catch bag, and retrieved through the umbilical port. Abdominal cavity was very copiously irrigated, and secured hemostasis. All ports were removed under direct laparoscopic view. Wounds were closed in the following manner; The umbilical wound , which is also the site of the incarcerated umbilical hernia was closed primarily using interrupted 0 Vicryl sutures. Posterior aspect of the umbilicus was then tacked to the wound floor using 3-0 Vicryl sutures. All skin wounds were closed using subcuticular 4-0 Vicryl sutures followed by Steri-Strips and sterile dressings. Each incision was infiltrated 0.5% Marcaine at completion. Sponge, needle, and instrument counts were reported to be correct. Patient tolerated the procedure well and emerged from anesthesia in stable condition. EBL minimal
[2023-04-04 11:31] VITALS: BP 137/80; PULSE 76; RESP 16; O2SAT 96
[2023-04-04 11:36] VITALS: BP 136/73; PULSE 68; RESP 12; O2SAT 97
[2023-04-04 11:41] VITALS: BP 123/72; PULSE 70; RESP 17; O2SAT 100
[2023-04-04 11:56] VITALS: BP 124/70; PULSE 58; RESP 15; TEMP 36.2; O2SAT 99
== END 2023-04-04 12:21 | disposition home or self-care (01) ==
PROVIDERS: PCP Family Medicine; Visit Provider Surgery
PROC: 0FT44ZZ Resection of Gallbladder, Percutaneous Endoscopic Approach (ICD-10-PCS; CPT 47562; principal; 2023-04-04 10:10)
PROC: (CPT 47562; 2023-04-04 10:10)
DX: K80.44 Calculus of bile duct with chronic cholecystitis without obstruction (principal); K42.0 Umbilical hernia with obstruction, without gangrene
CPT/HCPCS: 47562; 88302; 88304; J0690; J1100; J1170; J2250; J2405; J3010

== ENCOUNTER 2023-04-13 09:24 | Outpatient (AMB) | payer MEDICARE, SELFPAY ==
--- NOTE | 2023-04-13 09:35 | A.OFFVIS_ITS ---
Intake Vital Signs 04/13/23 09:39 Weight 216 lb BP 153/94 H Blood Pressure Location Rt brachial Position Sitting Pulse 71 Intake Visit Reasons: S/P lap lars & umbilical hernia repair Intake Note: Patient here s/p lap lars and umbilical hernia repair. Reports incision sites healing well. Denies bleeding or itch. No longer taking pain meds. 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 Aside from incisional discomfort, is doing well. He has time diet he is having normal bowel habits. Patient is increasing his activity level. [facility] Medical History Anticoagulant long-term use Broken fibula Cardiomyopathy Gout Hemochromatosis Hepatomegaly HTN (hypertension) PAF (paroxysmal atrial fibrillation) Surgical History History of esophagogastroduodenoscopy (EGD) History of laparoscopic cholecystectomy (04/04/23) History of liver biopsy History of right mastoidectomy Hx of colonoscopy Family History Father Diabetes Mother Afib Cardiac pacemaker Brother Afib Sister Afib Uterine cancer Social History Household Members: Spouse Housing: House Alcohol intake: current Alcohol intake frequency: a few times a week Alcohol type: beer Patient Tobacco Use Status: Never used Tobacco e-Cigarette/Vaping Use: Never Used Second Hand Smoke Exposure: No service: No Current occupational status: retired Current occupational exposures/hazards: No Cognitive needs: No Hearing needs: No Vision needs: No Physical Exam Vital Signs: Last Vital Signs Pulse 71 04/13/23 09:39 BP 153/94 H 04/13/23 09:39 Eyes Other: Anicteric GI Other: Abdomen soft. Wound clean dry and intact. Assessment & Plan Assessment & Plan (1) Umbilical hernia: Code(s): K42.9 - Umbilical hernia without obstruction or gangrene (2) Abdominal pain: Code(s): R10.9 - Unspecified abdominal pain (3) Thickening of wall of gallbladder: Code(s): K82.8 - Other specified diseases of gallbladder Plan Patient has been given local instructions, and will follow-up p.r.n.. Coding Level of Care Code Global (47784) Diagnoses Umbilical hernia K42.9 Abdominal pain R10.9 Thickening of wall of gallbladder K82.8
[2023-04-13 09:39] VITALS: BP 153/94; PULSE 71
== END 2023-04-13 09:45 | disposition home or self-care (01) ==
PROVIDERS: PCP Family Medicine; Visit Provider Surgery
DX: K42.9 Umbilical hernia without obstruction or gangrene (principal); R10.9 Unspecified abdominal pain; K82.8 Other specified diseases of gallbladder
CPT/HCPCS: 99024

== ENCOUNTER → 2023-04-13 09:24 | Outpatient (BNVA) | payer MEDICARE, SELFPAY | PROVIDERS: PCP Family Medicine; Visit Provider Surgery ==

== ENCOUNTER 2023-04-15 08:06 | Outpatient (REF) | payer MEDICARE, SELFPAY ==
[2023-04-15 08:47] LABS: Anion Gap 11 (12-20); Blood Urea Nitrogen 13 mg/dL (9-16); Calcium 9.4 mg/dL (8.4-10.2); Carbon Dioxide 28 mmol/L (22-29); Chloride 108 mmol/L (96-108); Estimated Glomerular Filt Rate > 60; Glucose Random 95 mg/dL (60-115); Potassium 3.8 mmol/L (3.3-5.1); Sodium 143 mmol/L (135-145)
== END 2023-04-15 08:07 | disposition home or self-care (01) ==
LOC: HO.LAB 08:06
PROVIDERS: PCP Family Medicine; Visit Provider Internal Medicine Cardiovascular Disease
DX: I10 Essential (primary) hypertension (principal); I48.0 Paroxysmal atrial fibrillation
CPT/HCPCS: 36415; 80048

== ENCOUNTER 2023-04-28 08:01 | Outpatient (REF) | payer MEDICARE, SELFPAY | END 2023-04-28 08:02 | disposition home or self-care (01) | LOC: HO.BBR 08:01 | PROVIDERS: PCP Family Medicine; Visit Provider Internal Medicine | DX: Z13.89 Encounter for screening for other disorder (principal) ==

== ENCOUNTER 2023-05-04 07:07 | Outpatient (REF) | payer MEDICARE, SELFPAY ==
[2023-05-04 11:55] LABS: Hematocrit 44.2 % (42.0-52.0); Hemoglobin 14.8 g/dl (14.0-18.0); Mean Corpuscular HGB Conc 33.5 g/dl (31.0-36.0); Mean Corpuscular Hemoglobin 33.3 pg (27.0-33.0); Mean Corpuscular Volume 99.5 fL (80.0-98.0); Mean Platelet Volume 11.2 fL (9.4-12.4); Platelet Count 219 X10*3/uL (160-400); Red Blood Count 4.44 X10*6/uL (4.60-5.80); Red Cell Distribution Width 12.1 % (11.0-16.0); White Blood Count 7.3 X10*3/uL (4.8-10.8)
[2023-05-04 12:12] LABS: Iron 109 mcg/dL (45-160); Percent Iron Saturation 46 % (15-50); Total Iron Binding Capacity 237 mcg/dL (228-428); Unsaturated Iron Binding 128 ug/dL
[2023-05-04 12:35] LABS: Ferritin 171 ng/mL (20-250)
== END 2023-05-04 07:08 | disposition home or self-care (01) ==
LOC: HO.WFDLDS 07:07
PROVIDERS: Visit Provider Internal Medicine
DX: E83.119 Hemochromatosis, unspecified (principal)
CPT/HCPCS: 36415; 82728; 83540; 85027

== ENCOUNTER 2023-05-09 15:05 | Outpatient (AMB) | payer MEDICARE, SELFPAY ==
--- NOTE | 2023-05-09 15:25 | A.OFFVIS_ITS ---
Intake Vital Signs 05/09/23 15:27 Height 6 ft Weight 220 lb 7.396 oz BMI 29.9 BP 127/80 Blood Pressure Location Lt brachial Position Sitting Pulse 74 Pulse Source Pulse Oximeter Pulse Oximetry (%) 96 Oxygen Delivery Method Room Air Intake Visit Reasons: FUP AFTER CARDIAC MRI (R/S 7.31) Intake Note: Patient is here for a follow up after cardiac MRI Allergies atorvastatin Allergy (Severe, Verified 05/09/23 15:36) cognitive decline Medication List - Last Reconciled 05/09/23 by Gonzalo Luna MD allopurinol 100 mg PO DAILY 30 days amlodipine 5 mg PO DAILY apixaban (Eliquis) 5 mg PO BID flecainide 100 mg PO BID 90 days lisinopril-hydrochlorothiazide 20-12.5 mg 2 tabs PO DAILY metoprolol succinate ER 25 mg PO DAILY 90 days trazodone 50 mg PO BEDTIME 90 days HPI HPI Comments History of Present Illness Details Pleasant 67-year-old gentleman here for follow-up. He has background history of paroxysmal atrial fibrillation. He has been on apixaban and flecainide. Clinically doing well and has no significant palpitations at this stage. No chest pain or shortness breath. He was complaining of right upper quadrant pain and was referred for ultrasound. This showed hepatosplenomegaly and he was referred to GI. His workup has shown concern for iron deposits in the liver but he is heterozygous for hemochromatosis. His brother has been diagnosed with hemochromatosis and is actually undergoing bloodletting. He continues to do well and has no chest discomfort or shortness of breath and is not experiencing any physical limitations but his echocardiogram performed in September is showing that his ejection fraction is 48%. This is lower than before. Given the concern for iron deposition and heterozygous hemochromatosis with question is that is there iron infiltration of myocardium also. Tolerating meds otherwise. Cardiac MRI was done which showed dilated left ventricle with mild global hypokinesis LVEF 48%. This small focal near tra nsmural delayed enhancement in the distal inferior wall as well as small size near transmural delayed enhancement at the mid inferior septum and possibly at the basal anterior septum. Suspect fibrosis, dilated cardiomyopathy, elevated right heart pressures, less likely small infarct. The sequence for assessing iron deposits in the myocardium was incorrectly done on this exam. Continues to be asymptomatic and physically active. [facility] Medical History Anticoagulant long-term use Broken fibula Cardiomyopathy Gout Hemochromatosis Hepatomegaly HTN (hypertension) PAF (paroxysmal atrial fibrillation) Surgical History History of esophagogastroduodenoscopy (EGD) History of laparoscopic cholecystectomy (04/04/23) History of liver biopsy History of right mastoidectomy Hx of colonoscopy Family History Father Diabetes Mother Afib Cardiac pacemaker Brother Afib Sister Afib Uterine cancer Social History Household Members: Spouse Housing: House Alcohol intake: current Alcohol intake frequency: a few times a week Alcohol type: beer Patient Tobacco Use Status: Never used Tobacco e-Cigarette/Vaping Use: Never Used Second Hand Smoke Exposure: No service: No Current occupational status: retired Current occupational exposures/hazards: No Cognitive needs: No Hearing needs: No Vision needs: No Review of Systems Const Denies fatigue, Denies fever(s), Denies frequent falls, Denies weight gain and Denies weight loss ENT Denies dizziness Card Denies chest pain, Denies leg edema, Denies lightheadedness, Denies dyspnea, Denies dyspnea on exertion, Denies orthopnea and Reports other (loss of consciousness) Resp Denies cough, Denies dyspnea and Denies dyspnea on exertion GI Denies hematochezia and Denies change in bowel habits Musc Denies abnormal gait, Denies muscle weakness, Denies numbness, Denies radiating pain into limb and Denies tingling Neuro Denies abnormal gait, Denies dizziness, Denies frequent falls, Denies numbness and Denies tingling Endo Denies fatigue Physical Exam Vital Signs: Last Vital Signs Pulse 74 05/09/23 15:27 BP 127/80 05/09/23 15:27 Pulse Ox 96 05/09/23 15:27 Oxygen Delivery Method Room Air 05/09/23 15:27 BMI result Body Mass Index 29.9 GENERAL APPEARANCE: in no acute distress, pleasant. NECK: no carotid bruit, no jugular venous distention. SKIN: no suspicious lesions, warm and dry. HEART: no murmurs, regular rate and rhythm. LUNGS: clear to auscultation bilaterally. ABDOMEN: soft, nontender. EXTREMITIES: no edema. PERIPHERAL PULSES: equal. NEUROLOGIC: No gross deficits, AAO X 3 Office Procedures EKG Details: Sinus rhythm 61 beats per minute, limb lead reversal, first-degree AV block, I VCD, QTC 442 milliseconds. [id number], Complete Assessment & Plan Assessment & Plan (1) PAF (paroxysmal atrial fibrillation): Code(s): I48.0 - Paroxysmal atrial fibrillation (2) HTN (hypertension): Code(s): I10 - Essential (primary) hypertension (3) Cardiomyopathy: Code(s): I42.9 - Cardiomyopathy, unspecified (4) Hemochromatosis: Code(s): E83.119 - Hemochromatosis, unspecified Plan 67 year old male with PAF and mild cardiomyopathy. He has hemochromatosis and has been blood letting. His CMR showed small area of LGE. He previously had normal stress test. He has been stable on Flecainide. I think it can be continued for now. He has been NYHA class I at this stage. He will get the CMR to assess the myocardial iron deposition. I think he will need coronary angiography to rule out CAD. If he truly has cardiac hemochromatosis then will consider referral to HF service. Coding Level of Care Code Est Pt Level 4 (44210) Diagnoses PAF (paroxysmal atrial fibrillation) I48.0 HTN (hypertension) I10 Cardiomyopathy I42.9 Hemochromatosis E83.119 CPT Codes EKG - CPT: 90730-[id number], Complete ([id number])
[2023-05-09 15:27] VITALS: BP 127/80; PULSE 74; O2SAT 96; BMI 29.9
== END 2023-05-09 16:06 | disposition home or self-care (01) ==
PROVIDERS: PCP Family Medicine; Referring Provider Family Medicine; Visit Provider Internal Medicine Cardiovascular Disease
DX: I48.0 Paroxysmal atrial fibrillation (principal); I10 Essential (primary) hypertension; I42.9 Cardiomyopathy, unspecified; E83.119 Hemochromatosis, unspecified
CPT/HCPCS: 93010; 99214

== ENCOUNTER → 2023-05-09 15:05 | Outpatient (BNVA) | payer MEDICARE, SELFPAY | PROVIDERS: PCP Family Medicine; Referring Provider Family Medicine; Visit Provider Internal Medicine Cardiovascular Disease | DX: I48.0 Paroxysmal atrial fibrillation (principal); I10 Essential (primary) hypertension; I42.9 Cardiomyopathy, unspecified; E83.119 Hemochromatosis, unspecified; Z79.01 Long term (current) use of anticoagulants | CPT/HCPCS: 93005; 99212 ==

== ENCOUNTER 2023-05-25 08:24 | Outpatient (AMB) | payer MEDICARE, SELFPAY ==
[2023-05-25 08:36] VITALS: BP 122/70; PULSE 61; O2SAT 98; BMI 29.6
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
== END 2023-05-25 09:12 | disposition home or self-care (01) ==
PROVIDERS: Visit Provider Family Medicine
DX: I10 Essential (primary) hypertension (principal); I42.9 Cardiomyopathy, unspecified; M10.9 Gout, unspecified; Z71.89 Other specified counseling
CPT/HCPCS: 99214

== ENCOUNTER 2023-06-08 07:41 | Outpatient (REF) | payer MEDICARE, SELFPAY ==
[2023-06-08 11:42] LABS: Hematocrit 43.6 % (42.0-52.0); Hemoglobin 14.8 g/dl (14.0-18.0); Mean Corpuscular HGB Conc 33.9 g/dl (31.0-36.0); Mean Corpuscular Hemoglobin 33.3 pg (27.0-33.0); Mean Platelet Volume 11.2 fL (9.4-12.4); Platelet Count 220 X10*3/uL (160-400); Red Blood Count 4.45 X10*6/uL (4.60-5.80); Red Cell Distribution Width 12.3 % (11.0-16.0); White Blood Count 8.9 X10*3/uL (4.8-10.8)
[2023-06-08 11:46] LABS: INTERNATIONAL NORM RATIO 1.3 (0.9-1.1); Prothrombin Time 16.1 SEC (11.1-13.3)
[2023-06-08 12:17] LABS: Uric Acid 8.4 mg/dL (3.4-7.0)
[2023-06-08 12:31] LABS: Anion Gap 13 (12-20); Blood Urea Nitrogen 16 mg/dL (9-16); Calcium 9.4 mg/dL (8.4-10.2); Carbon Dioxide 26 mmol/L (22-29); Chloride 107 mmol/L (96-108); Estimated Glomerular Filt Rate > 60; Glucose Random 124 mg/dL (60-115); Potassium 3.6 mmol/L (3.3-5.1); Sodium 142 mmol/L (135-145)
== END 2023-06-08 07:42 | disposition home or self-care (01) ==
LOC: HO.WFDLDS 07:41
PROVIDERS: Family Medicine; Visit Provider Internal Medicine Cardiovascular Disease
DX: M10.9 Gout, unspecified (principal); I42.9 Cardiomyopathy, unspecified
CPT/HCPCS: 36415; 80048; 84550; 85027; 85610

== ENCOUNTER → 2023-06-16 23:59 | Outpatient (BNV) | payer MEDICARE, SELFPAY | PROVIDERS: PCP Family Medicine; Visit Provider Internal Medicine Cardiovascular Disease | DX: I42.9 Cardiomyopathy, unspecified (principal) | CPT/HCPCS: 93458; 99152 ==

== ENCOUNTER 2023-06-23 07:59 | Outpatient (REF) | payer MEDICARE, SELFPAY | END 2023-06-23 08:00 | disposition home or self-care (01) | LOC: HO.BBR 07:59 | PROVIDERS: PCP Family Medicine; Visit Provider Internal Medicine | DX: Z13.89 Encounter for screening for other disorder (principal) ==

== ENCOUNTER 2023-06-30 12:48 | Outpatient (AMB) | payer MEDICARE, SELFPAY ==
[2023-06-30 12:53] VITALS: BP 114/72; PULSE 63; BMI 29.4
--- NOTE | 2023-06-30 12:53 | MHC.OFFVIS ---
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 Medical history of hypercholesterolemia,hepatomegaly, hemochromatosis, cardiomyopathy, PAF, and HTN. He reports he has been feeling well. Denies chest pain, shortness of breath, palpitations, edema, bleeding concerns or tenderness at catheterization site. Access site of right radial is intact with no tendernessor bruising noted. Cardiac catheterization showed normal coronary arteries. He reports tolerating medications fine. Patient checks blood pressures at home and reports they are within normal limits with an occasional systolic of 140 mmHg. He reports since cardioversion he has not had any episodes that he feel is atrial fibrillation. He reports he feels as if he drank to much caffiene when he goes into afib and has not felt that. [facility] Medical History Cardiomyopathy Hepatomegaly Hemochromatosis Gout Broken fibula Anticoagulant long-term use HTN (hypertension) PAF (paroxysmal atrial fibrillation) Surgical History (Updated 06/30/23 @ 13:26 by Mala Echevarria NP) History of removal of skin mole History of laparoscopic cholecystectomy (04/04/23) History of liver biopsy History of esophagogastroduodenoscopy (EGD) Hx of colonoscopy History of right mastoidectomy Family History Father Diabetes Mother Afib Cardiac pacemaker Brother Afib Sister Afib Uterine cancer Social History Household Members: Spouse Housing: House Alcohol intake: current Alcohol intake frequency: a few times a week Alcohol type: beer Patient Tobacco Use Status: Never used Tobacco e-Cigarette/Vaping Use: Never Used Second Hand Smoke Exposure: No service: No Current occupational status: retired Current occupational exposures/hazards: No Cognitive needs: No Hearing needs: No Vision needs: No Review of Systems Const Denies chills, Denies fatigue, Denies fever(s), Denies frequent falls, Denies weakness, Denies weight gain and Denies weight loss ENT Denies dizziness Card Denies chest pain, Denies chest pain at rest, Denies chest pain with activity, Denies rapid heart rate, Denies pedal edema, Denies edema, Denies leg edema, Denies lightheadedness, Denies palpitations, Denies dyspnea, Denies dyspnea on exertion and Denies orthopnea Resp Denies cough, Denies dyspnea and Denies dyspnea on exertion GI Denies hematochezia and Denies change in stool character Musc Denies abnormal gait, Reports limited range of motion, Reports muscle cramps, Denies muscle weakness, Denies numbness, Denies radiating pain into limb, Denies stiffness and Denies tingling Neuro Denies abnormal gait, Denies dizziness, Denies frequent falls, Denies numbness, Denies tingling and Denies weakness Endo Denies fatigue and Denies palpitations Physical Exam Vital Signs: Last Vital Signs Pulse 63 06/30/23 12:53 BP 114/72 06/30/23 12:53 BMI result Body Mass Index 29.4 Const General: healthy appearing and no acute distress Orientation/consciousness: patient oriented x3 HEENT Head: Yes normal to inspection Eyes General: appearance normal, both eyes and all related structures Neck Neck: Yes normal visual inspection Chest Chest palpation & inspection: normal inspection of the chest Resp Effort & Inspection: normal respiratory effort Auscultation: clear to auscultation bilaterally Cardio Jugular venous distension: no JVD Palpation: normal PMI Rate: regular rate Rhythm: regular rhythm Heart sounds: S1 normal heart sound present, S2 normal heart sound present, no click, no gallops, no murmurs and no rubs GI Inspection: Yes normal to inspection Palpation (GI): Soft to palpation Skin General skin exam: no rashes or lesions noted Neuro General: patient oriented x3 Extrem General: Yes normal to inspection and Yes capillary refill normal Right upper extremity: normal to inspection and normal capillary refill Psych Appearance: grossly normal Office Procedures EKG Details: EKG today: Sinus Rhythm with 1st degree AV block. QRS 118 ms, QTc 429 ms, LA 266 ms. No significant changes from last EKG [id number], Complete Assessment & Plan Assessment & Plan (1) S/P cardiac catheterization: Comment: 06/16/[address] Luna. LMCA: Normal. LAD: Normal. LCx: Normal RCA: Normal. Recommendations of aggressive primary risk factor modifications. Code(s): Z98.890 - Other specified postprocedural states (2) Hypercholesterolemia: Code(s): E78.00 - Pure hypercholesterolemia, unspecified (3) HTN (hypertension): Code(s): I10 - Essential (primary) hypertension (4) PAF (paroxysmal atrial fibrillation): Code(s): I48.0 - Paroxysmal atrial fibrillation Plan Continue all medications at this time. Report any new symptoms. Recommend for PCP to monitor lipids closely with a LDL below 130 mg/dl, tight control on blood pressures, heart healthy diet, and exercise. Will follow-up with Dr. Luna in 6 months or sooner if needed. Coding Level of Care Code Est Pt Level 4 (73980) Diagnoses S/P cardiac catheterization Z98.890 Hypercholesterolemia E78.00 HTN (hypertension) I10 PAF (paroxysmal atrial fibrillation) I48.0 CPT Codes EKG - CPT: 66300-[id number], Complete ([id number])
== END 2023-06-30 13:23 | disposition home or self-care (01) ==
PROVIDERS: PCP Family Medicine; Visit Provider Nurse Practitioner
DX: Z98.890 Other specified postprocedural states (principal); E78.00 Pure hypercholesterolemia, unspecified; I10 Essential (primary) hypertension; I48.0 Paroxysmal atrial fibrillation
CPT/HCPCS: 93010; 99214

== ENCOUNTER → 2023-06-30 12:48 | Outpatient (BNVA) | payer MEDICARE, SELFPAY | PROVIDERS: PCP Family Medicine; Visit Provider Nurse Practitioner | DX: I48.0 Paroxysmal atrial fibrillation (principal); I10 Essential (primary) hypertension; E78.00 Pure hypercholesterolemia, unspecified; Z98.890 Other specified postprocedural states | CPT/HCPCS: 93005; 99212 ==

== ENCOUNTER 2023-11-09 12:34 | Outpatient (AMB) | payer MEDICARE, SELFPAY ==
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
[2023-11-09 12:40] VITALS: BP 135/76; PULSE 67; BMI 29.8
== END 2023-11-09 13:14 | disposition home or self-care (01) ==
PROVIDERS: PCP Family Medicine; Visit Provider Internal Medicine
DX: R16.0 Hepatomegaly, not elsewhere classified (principal); R10.11 Right upper quadrant pain
CPT/HCPCS: 99214

== ENCOUNTER → 2023-11-09 12:34 | Outpatient (BNVA) | payer MEDICARE, SELFPAY | PROVIDERS: PCP Family Medicine; Visit Provider Internal Medicine | DX: R16.0 Hepatomegaly, not elsewhere classified (principal); R10.11 Right upper quadrant pain | CPT/HCPCS: 99212 ==

== ENCOUNTER 2023-11-10 07:17 | Outpatient (REF) | payer MEDICARE, SELFPAY ==
[2023-11-10 11:18] LABS: MANUAL DIFF FLAG NO
[2023-11-10 11:45] LABS: Appearance Urine Clear; Color Urine Yellow; Glucose Urine UA Negative (Negative); Leukocyte Esterase Urine Negative (Negative); Nitrite Urine Negative (Negative); PH 6.5 (5.0-9.0); Urine Blood Negative (Negative); Urine Ketones Negative (Negative); Urine Protein Negative (Neg-Trace)
[2023-11-10 12:06] LABS: Basophils Absolute Auto 0.1 X10*3/uL (0.0-0.2); Basophils Percent Auto 0.9 % (0-2); Eosinophils Absolute Auto 0.1 X10*3/uL (0.0-0.4); Eosinophils Percent Auto 1.8 % (0-4); Hematocrit 43.4 % (42.0-52.0); Hemoglobin 15.2 g/dl (14.0-18.0); Imm Gran Abs Auto 0.02 X10*3/uL (0.00-0.03); Imm Gran Pct Auto 0.4 % (0.0-0.4); Mean Corpuscular Hemoglobin 34.2 pg (27.0-33.0); Mean Corpuscular Volume 97.5 fL (80.0-98.0); Monocytes Absolute Auto 0.4 X10*3/uL (0.1-1.2); Monocytes Percent Auto 7.4 % (2-11); Neutrophils Absolute Auto 3.1 x10*3/uL (2.0-8.3); Neutrophils Percent Auto 54.5 % (45-73); Platelet Count 208 X10*3/uL (160-400); Red Blood Count 4.45 X10*6/uL (4.60-5.80); Red Cell Distribution Width 11.9 % (11.0-16.0); White Blood Count 5.7 X10*3/uL (4.8-10.8)
[2023-11-10 12:24] LABS: Prostate Specific Antigen Scr 5.74 ng/mL (<0.05-4.0)
[2023-11-10 12:30] LABS: Creatinine Urine 150.07 mg/dL; Microalbum/Creatinine Ratio Ur 11.9 ug/mg cr (<30)
[2023-11-10 12:39] LABS: Alanine Aminotransferase 17 U/L (0-40); Albumin Level 3.9 g/dL (3.5-5.0); Alkaline Phosphatase 73 U/L (39-117); Anion Gap 12 (12-20); Aspartate Amino Transferase 17 U/L (5-37); Bilirubin Total 0.8 mg/dL (0.0-1.0); Blood Urea Nitrogen 15 mg/dL (9-16); Carbon Dioxide 28 mmol/L (22-29); Chloride 106 mmol/L (96-108); Cholesterol 173 mg/dL (<200); Estimated Glomerular Filt Rate > 60; Glucose Fasting 92 mg/dL (60-99); Glucose Random 90 mg/dL (60-115); HDL Cholesterol 46 mg/dL (>40); LDL Cholesterol Calculated 113 mg/dL (<100); Sodium 142 mmol/L (135-145); TSH reflex Free T4 1.55 uIU/mL (0.32-4.0); Total Protein 7.5 g/dL (6.5-8.0); Triglycerides 72 mg/dL (<150); Uric Acid 7.7 mg/dL (3.4-7.0)
== END 2023-11-10 07:18 | disposition home or self-care (01) ==
LOC: HO.WFDLDS 07:17
PROVIDERS: Visit Provider Family Medicine
DX: Z00.00 Encounter for general adult medical examination without abnormal findings (principal); Z12.5 Encounter for screening for malignant neoplasm of prostate; I10 Essential (primary) hypertension; M10.9 Gout, unspecified
CPT/HCPCS: 36415; 80053; 80061; 81003; 82043; 82570; 84153; 84443; 84550; 85025

== ENCOUNTER 2023-11-22 08:50 | Outpatient (AMB) | payer MEDICARE, SELFPAY ==
[2023-11-22 09:22] VITALS: BP 122/70; PULSE 67; O2SAT 97; BMI 30.3
--- NOTE | 2023-11-22 09:22 | A.OFFPC_ITS ---
Vital Signs 11/22/23 09:22 Height 6 ft Weight 223 lb 2 oz BMI 30.3 BP 122/70 Blood Pressure Location Lt brachial Position Sitting Pulse 67 Pulse Source Pulse Oximeter Pulse Oximetry (%) 97 Oxygen Delivery Method Room Air Intake Visit Reasons: Extended exam with f/u labs and health maintenance Intake Note: Patient is here for his physical today, and follow up on labs. Allergies atorvastatin Allergy (Severe, Verified 11/22/23 09:23) cognitive decline Tobacco use date assessed: 11/22/23 Fall risk assessment: No Falls in past year Last assessed Fall Risk: 11/22/23 HPI Extended exam with f/u labs and health maintenance HPI Details 68 y/o male presents for an extended exa m with f/u labs and health maintenance. Labs were drawn 11/10/23. Reviewed labs with pt. Mild anemia. Triglycerides 72. TC 173. LDL 113. HDL 46. PSA elevated at 5.74. Blood pressure today 122/70. He is on lisinopril-HCTZ 20-12.5mg, metoprolol 25mg, amlodipine 5mg daily. He reports he continues to work on his diet and has almost eliminated red meat. [facility] Medical History Cardiomyopathy Hepatomegaly Hemochromatosis Gout Broken fibula Anticoagulant long-term use HTN (hypertension) PAF (paroxysmal atrial fibrillation) Surgical History History of removal of skin mole History of laparoscopic cholecystectomy (04/04/23) History of liver biopsy History of esophagogastroduodenoscopy (EGD) Hx of colonoscopy History of right mastoidectomy Family History Father Diabetes Mother Afib Cardiac pacemaker Brother Afib Sister Afib Uterine cancer Social History Household Members: Spouse Housing: House Alcohol intake: current Alcohol intake frequency: a few times a week Alcohol type: beer Patient Tobacco Use Status: Never used Tobacco e-Cigarette/Vaping Use: Never Used Second Hand Smoke Exposure: No service: No Current occupational status: retired Current occupational exposures/hazards: No Cognitive needs: No Hearing needs: No Vision needs: No Questionnaire PHQ-9 Over the last 2 weeks, how often have you been bothered by any of the following problems? 1. Little interest or pleasure in doing things: not at all 2. Feeling down, depressed, or hopeless: not at all 3. Trouble falling or staying asleep, or sleeping too much: not at all 4. Feeling tired or having little energy: not at all 5. Poor appetite or overeating: not at all 6. Feeling bad about yourself - or that you are a failure or have let yourself or your family down: not at all 7. Trouble concentrating on things, such as reading the newspaper or watching television: not at all 8. Moving or speaking so slowly that other people could have noticed. Or the opposite - being so fidgety or restless that you have been moving around a lot more than usual: not at all 9. Thoughts that you would be better off or of hurting yourself in some way: not at all Total score: 0 Source: Developed by Drs. Addy Larson, Nancy Hernández, Star Goldstein and colleagues, with an educational danny from [employer]. Thrive Questionnaire Date Thrive assessed: 11/22/23 I am a: Patient What is your living situation today?: I have a steady place to live Within the past 12 months, did the food you bought not last and you didn't have the money to get more?: Never true Within the past 12 months, did you worry whether your food would run out before you got money to buy more?: Never true Do you have trouble paying for medicines?: No Do you have trouble getting transportation to medical appointments?: No Do you have trouble paying your heating and electricity bill?: No Do you have trouble taking care of your child, family member or friend?: No Do you have trouble with day-to-day activities such as bathing, preparing meals, shopping, managing finances, etc.?: No Are you currently unemployed and looking for a job?: No Are you interested in more education?: No THRIVE Score: 0 AUDIT C Alcohol Use Questionnaire (AUDIT-C) 1. How often do you have a drink containing alcohol?: Monthly or less 2. How many drinks containing alcohol do you have on a typical day when you are drinking?: 1 or 2 3. How often do you have six or more drinks on one occasion?: Never Total Score: 1 LEXA-7 AMB Questionnaire LEXA-7 Date LEXA - 7 assessed: 11/22/23 Feeling nervous, anxious, or on edge: 0 = Not at all Not being able to stop or control worryin = Not at all Worrying too much about different things: 0 = Not at all Trouble relaxin = Not at all Being so restless that it is hard to sit still: 0 = Not at all Becoming easily annoyed or irritable: 0 = Not at all Feeling afraid as if something awful might happen: 0 = Not at all Total LEXA-7 score (0-4 normal; 5-9 mild; 10-14 moderate; 15-21 severe): 0 Source: Developed by Drs. Addy Larson, Nancy Hernández, Star Goldstein and colleagues, with an educational danny from [employer]. Review of Systems Const Denies chills, Denies fatigue, Denies fever(s), Denies headache(s) and Denies weakness Eyes Denies change in vision ENT Denies dizziness, Denies headache(s), Denies hearing loss, Denies nasal congestion, Denies sinus pain, Denies sinus pressure and Denies sore throat Card Denies chest pain, Denies lightheadedness, Denies dyspnea and Denies other (palpitations) Resp Denies cough, Denies dyspnea and Denies wheezing GI Denies abdominal pain, Denies melena, Denies hematochezia, Denies change in bowel habits, Denies dyspepsia and Denies nausea Denies hematuria and Denies dysuria Musc Denies abnormal gait, Denies myalgias, Denies arthralgias, Denies numbness and Denies tingling Skin/Breast Denies rash, Denies unusual bruising and Denies wounds Neuro Denies abnormal gait, Denies dizziness, Denies headache(s), Denies memory loss, Denies numbness, Denies Sensory deficit (Neuro), Denies tingling and Denies weakness Psych Denies anxiety, Denies depression and Denies memory loss Endo Denies cold intolerance, Denies fatigue, Denies heat intolerance, Denies polydipsia and Denies polyuria [place]/Lymph Denies easy bleeding and Denies easy bruising Aller/Immun Denies wheezing Physical exam (Primary Care) Vital Signs: Last Vital Signs Pulse 67 11/22/23 09:22 BP 122/70 11/22/23 09:22 Pulse Ox 97 11/22/23 09:22 Oxygen Delivery Method Room Air 11/22/23 09:22 BMI result Body Mass Index 30.3 Tobacco/Smoking Status: Tobacco use Status Tobacco use date assessed 11/22/23 11/22/23 09:24 Patient Tobacco Use Status Never used Tobacco 11/22/23 09:22 e-Cigarette/Vaping Use Never Used 11/22/23 09:22 PHQ-9: PHQ-9 Score PHQ-9: Total score 0 11/22/23 09:45 Thrive Assessment: Date of Thrive Assessment Date Thrive assessed 11/22/23 11/22/23 09:28 Const General: no acute distress, well developed, alert and awake Nutritional Appearance: well nourished Orientation/consciousness: patient oriented x3 HENMT Head: Yes normocephalic and Yes atraumatic Ears: hearing grossly normal bilaterally and TM's normal bilaterally General nose exam: Normal external nose present and Normal nares present Mouth: Normal oral and palatal mucosa present and moist mucous membranes Teeth and gingiva: dentition normal Throat: Yes posterior oropharynx normal Eyes General: appearance normal, both eyes and all related structures Pupils: Equal, round and reactive pupils present and Pupil accommodation reflex normal EOM: EOMs intact bilaterally Neck Neck: Yes normal visual inspection, Yes no lymphadenopathy and Yes trachea midline Thyroid: Thyroid normal Carotids: no bruits Lymphatic: no lymphadenopathy noted Chest Chest palpation & inspection: normal inspection of the chest Resp Effort & Inspection: normal respiratory effort Auscultation: clear to auscultation bilaterally Cardio Rate: regular rate Rhythm: regular rhythm Heart sounds: S1 normal heart sound present, S2 normal heart sound present, no gallops, no murmurs and no rubs Bruits: no abdominal aortic bruits and no carotid bruits GI Palpation (GI): No Abdominal aortic bruit present, Soft to palpation, nontender, No hepatosplenomegaly present and No Rebound tenderness present Auscultation: normal bowel sounds General: Yes no CVA tenderness Back/Spine/Pelvis Back: no CVA tenderness Cervical Spine: cervical ROM normal and No Cervical spine tenderness Thoracic/Lumbar Spine: thoraco-lumbar ROM normal, No pain with thoraco-lumbar ROM, No thoracic spinal tenderness and No lumbar spinal tenderness Skin Lesions: no lesions Rashes: no rashes Trauma: no lacerations or abrasions Wounds: no wounds Nails: normal Neuro General: patient oriented x3 Cranial nerves: Yes Equal, round and reactive pupils present Cognition (Neuro): normal cognition Gait exam (Neuro): Normal gait present Motor exam (neuro): 5/5 motor strength present throughout Sensory Exam: No Sensory deficit (Neuro) Deep tendon reflexes (DTR's): Right patellar reflex intensity grade: 2+ and Left patellar reflex intensity grade: 2+ Extrem General: Yes normal to inspection and No edema Psych Appearance: grossly normal Affect: normal affect Attitude: cooperative Thought process: Normal thought process present Assessment and Plan Assessment & Plan (1) HTN (hypertension): Code(s): I10 - Essential (primary) hypertension Plan: Blood?pressure?is?well?controlled.??Goal?is?less?than?130/80?for?patient?with?ca rdiomyopathy Continue?current?medication (2) S/P cardiac catheterization: Comment: 06/16/[address] Luna. LMCA: Normal. LAD: Normal. LCx: Normal RCA: Normal. Recommendations of aggressive primary risk factor modifications. Code(s): Z98.890 - Other specified postprocedural states (3) Elevated PSA: Code(s): R97.20 - Elevated prostate specific antigen [PSA] Plan: PSA?is?elevated.??He?will?get?this?rechecked?in?a?few?weeks?and?if?still?elev ated?may?need?a?referral?to?urology (4) Hypercholesterolemia: Code(s): E78.00 - Pure hypercholesterolemia, unspecified Plan: Rechecking?lipids. Cardiology?had?recommended?a?goal?less?than?130?but?we?discussed?trying?to?keep? his?cholesterol?level?less?than?100 He?has?not?tolerated?statins?but?has?not?tried?Zetia Ordered?Zetia (5) Cardiomyopathy: Code(s): I42.9 - Cardiomyopathy, unspecified Plan: Working?on?controlling?risk?factors?such?as?hypertension?and?hyperlipidemia. Also?has?hemochromatosis?though?recent?MRI?did?not?show?iron?burden Follow-up?with?Cardiology?as?recommended (6) Screening for colon cancer: Code(s): Z12.11 - Encounter for screening for malignant neoplasm of colon Plan: Last?colonoscopy?at?age?61?and?was?told?to?follow-up?in?10?years Up-to-date (7) Screening for prostate cancer: Code(s): Z12.5 - Encounter for screening for malignant neoplasm of prostate Plan: PSA?elevated-see?above (8) Encounter for general adult medical examination without abnormal findings: Code(s): Z00.00 - Encounter for general adult medical examination without abnormal findings Plan: 68-year-old?male?presents?for?extended?exam Encouraged?healthy?diet?with?active?lifestyle?and?plenty?of?exercise Orders: Orders Uric Acid Today M10.9 - Gout, unspecified Prostate Specific Antigen Scr Today R97.20 - Elevated prostate specific antigen [PSA], Z12.5 - Encounter for screening for malignant neoplasm of prostate Lipid Panel Today I42.9 - Cardiomyopathy, unspecified, Z00.00 - Encounter for general adult medical examination without abnormal findings Comprehensive Met. Panel Today I42.9 - Cardiomyopathy, unspecified Coding Level of Care Code Est Pt Level 4 (35669) Diagnoses HTN (hypertension) I10 S/P cardiac catheterization Z98.890 Elevated PSA R97.20 Hypercholesterolemia E78.00 Cardiomyopathy I42.9 Screening for colon cancer Z12.11 Screening for prostate cancer Z12.5 Encounter for general adult medical examination without abnormal findings Z00.00
== END 2023-11-22 10:08 | disposition home or self-care (01) ==
PROVIDERS: PCP Family Medicine; Visit Provider Family Medicine
DX: I42.9 Cardiomyopathy, unspecified (principal); I10 Essential (primary) hypertension; R97.20 Elevated prostate specific antigen [PSA]; E78.00 Pure hypercholesterolemia, unspecified; Z12.11 Encounter for screening for malignant neoplasm of colon; Z98.890 Other specified postprocedural states; Z12.5 Encounter for screening for malignant neoplasm of prostate
CPT/HCPCS: 99214

== ENCOUNTER 2023-11-29 09:43 | Outpatient (REF) | payer MEDICARE, SELFPAY ==
--- NOTE | ~2023-11-29 | US_ITS ---
EXAMINATION: US ABDOMEN COMPLETE CLINICAL INFORMATION: Hepatomegaly, not elsewhere classified. COMPARISON: Ultrasound abdomen complete 02/04/2023 and 07/19/2022. MRI abdomen 08/19/2022. TECHNIQUE: Real-time imaging of the abdominal viscera. Limited visualization due to bowel gas. FINDINGS: PANCREAS: Limited visualization of pancreatic tail and head. Imaged portion of pancreatic body is unremarkable. ABDOMINAL AORTA: Unremarkable. INFERIOR VENA CAVA: Visualized portions are normal. LIVER: Hepatomegaly, 19.0 cm. Mildly lobulated hepatic contour. Limited visualization . Mild diffusely heterogeneous hepatic echotexture may represent hepatocellular disease. GALLBLADDER: Surgically absent. COMMON BILE DUCT: Normal in caliber measuring 0.4 cm in diameter. RIGHT KIDNEY: Kpy-cj-kmxim pole 0.5 cm calculus. Previous exam demonstrated a 1.0 cm calculus. No hydronephrosis. Limited visualization. The kidney measures 12.8 cm in maximum dimension. LEFT KIDNEY: No hydronephrosis. No renal calculi. Limited visualization. The kidney measures 11.5 cm in maximum dimension. SPLEEN: The spleen measures 14.0 cm in maximum dimension. Splenomegaly. FREE FLUID: None. US/US abdomen complete IMPRESSION: 1. Hepatomegaly, 19.0 cm. Mildly lobulated hepatic contour. Mild diffusely heterogeneous hepatic echotexture may represent hepatocellular disease. 2. Splenomegaly, 14.0 cm. 3. Right renal 0.5 cm calculus. No hydronephrosis.
== END 2023-11-29 09:44 | disposition home or self-care (01) ==
LOC: HO.US 09:43
PROVIDERS: PCP Family Medicine; Visit Provider Internal Medicine
DX: R16.0 Hepatomegaly, not elsewhere classified (principal)
CPT/HCPCS: 76700

== ENCOUNTER 2023-12-27 07:13 | Outpatient (REF) | payer MEDICARE, SELFPAY ==
[2023-12-27 13:01] LABS: Prostate Specific Antigen Scr 5.93 ng/mL (<0.05-4.0)
[2023-12-27 13:29] LABS: Alanine Aminotransferase 16 U/L (0-40); Albumin Level 3.8 g/dL (3.5-5.0); Alkaline Phosphatase 71 U/L (39-117); Anion Gap 11 (12-20); Aspartate Amino Transferase 14 U/L (5-37); Bilirubin Total 0.6 mg/dL (0.0-1.0); Blood Urea Nitrogen 12 mg/dL (9-16); Carbon Dioxide 29 mmol/L (22-29); Chloride 107 mmol/L (96-108); Cholesterol 150 mg/dL (<200); Estimated Glomerular Filt Rate > 60; Glucose Random 86 mg/dL (60-115); HDL Cholesterol 45 mg/dL (>40); LDL Cholesterol Calculated 84 mg/dL (<100); Potassium 3.7 mmol/L (3.3-5.1); Sodium 143 mmol/L (135-145); Total Protein 7.3 g/dL (6.5-8.0); Triglycerides 105 mg/dL (<150); Uric Acid 7.1 mg/dL (3.4-7.0)
== END 2023-12-27 07:14 | disposition home or self-care (01) ==
LOC: HO.WFDLDS 07:13
PROVIDERS: Visit Provider Family Medicine
DX: Z00.00 Encounter for general adult medical examination without abnormal findings (principal); Z12.5 Encounter for screening for malignant neoplasm of prostate; Z13.6 Encounter for screening for cardiovascular disorders; M10.9 Gout, unspecified; R97.20 Elevated prostate specific antigen [PSA]; I42.9 Cardiomyopathy, unspecified
CPT/HCPCS: 36415; 80053; 80061; 84153; 84550

== ENCOUNTER 2023-12-30 14:44 | Outpatient (AMB) | payer MEDICARE, SELFPAY ==
--- NOTE | 2023-12-30 14:38 | A.OFFPC_ITS ---
Intake Visit Reasons: follow up cpe lab Intake Note: Patient is following up on his blood work today. Allergies atorvastatin Allergy (Severe, Verified 12/30/23 14:41) cognitive decline Tobacco use date assessed: 12/30/23 Fall risk assessment: No Falls in past year Last assessed Fall Risk: 12/30/23 Dental Screening Dental Screen Date: 05/25/23 HPI follow up cpe lab HPI Details 68 y/o male presents to f/u CPE-labs via telemedicine. Labs were drawn 12/27/23. Reviewed labs with pt. Ongoing elevated PSA at 5.93. Triglycerides 105. TC 150. LDL 84. HDL 45. He is on ezetimibe 10mg daily. Pt reports reecent tick bite. 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 [facility] Medical History Cardiomyopathy Hepatomegaly Hemochromatosis Gout Broken fibula Anticoagulant long-term use HTN (hypertension) PAF (paroxysmal atrial fibrillation) Surgical History History of removal of skin mole History of laparoscopic cholecystectomy (04/04/23) History of liver biopsy History of esophagogastroduodenoscopy (EGD) Hx of colonoscopy History of right mastoidectomy Family History Father Diabetes Mother Afib Cardiac pacemaker Brother Afib Sister Afib Uterine cancer Social History Household Members: Spouse Housing: House Alcohol intake: current Alcohol intake frequency: a few times a week Alcohol type: beer Patient Tobacco Use Status: Never used Tobacco e-Cigarette/Vaping Use: Never Used Second Hand Smoke Exposure: No service: No Current occupational status: retired Current occupational exposures/hazards: No Cognitive needs: No Hearing needs: No Vision needs: No Questionnaire Thrive Questionnaire Date Thrive assessed: 11/22/23 LEXA-7 AMB Questionnaire LEXA-7 Date LEXA - 7 assessed: 11/22/23 Source: Developed by Drs. Addy Larson, Nancy Hernández, Star Goldstein and colleagues, with an educational danny from [employer]. Review of Systems Const Denies chills, Denies fatigue, Denies fever(s), Denies headache(s) and Denies weakness ENT Denies dizziness and Denies headache(s) Card Denies dyspnea Resp Denies cough, Denies dyspnea, Denies wheezing and Denies other (shortness of breath) Musc Denies numbness and Denies tingling Neuro Denies dizziness, Denies headache(s), Denies numbness, Denies tingling and Denies weakness Psych Denies anxiety and Denies depression Endo Denies fatigue Aller/Immun Denies wheezing Physical exam (Primary Care) Tobacco/Smoking Status: Tobacco use Status Tobacco use date assessed 12/30/23 12/30/23 14:43 Patient Tobacco Use Status Never used Tobacco 12/30/23 14:38 e-Cigarette/Vaping Use Never Used 12/30/23 14:38 Thrive Assessment: Date of Thrive Assessment Date Thrive assessed 11/22/23 12/30/23 14:38 Telehealth Telehealth Location of provider rendering services: practice address Location of patient: address on file Patient Identification confirmed using: Name, : Yes Telehealth method: voice only Patient verbally consented to treatment: Yes Patient verbally consented to billing insurance company: Yes Patient informed of any privacy concerns related to visit: Yes Minutes spent on Phone/Video with Pt.: 12 Assessment and Plan Assessment & Plan (1) Elevated PSA: Code(s): R97.20 - Elevated prostate specific antigen [PSA] Plan: Referred?patient?to?Urology (2) Hypercholesterolemia: Code(s): E78.00 - Pure hypercholesterolemia, unspecified Plan: LDL?cholesterol?much?improved?with?Zetia. History?of?cardiomyopathy. Continue?Zetia (3) Immunization counseling: Code(s): Z71.89 - Other specified counseling Plan: We?discussed?COVID?vaccination (4) Tick bite: Code(s): W57.XXXA - Bitten or stung by nonvenomous insect and other nonvenomous arthropods, initial encounter Plan: Recent?tick?bite?with?small?rash?and?then?fatigue. Patient?had?tick?tested?and?positive?for?Babesia Start?atovaquone?and?clindamycin Will?test?for?Babesia?IgM/IgG (5) Tick-borne disease: Code(s): B88.2 - Other arthropod infestations Plan: As?above Orders: Orders Babesia IgG/IgM Today W57.XXXA - Bitten or stung by nonvenomous insect and other nonvenomous arthropods, initial encounter Medications: New atovaquone must administer with food, preferably a high-fat meal 750 mg (5 mL) PO BID 70 mL 0RF 7 days B88.2 - Other arthropod infestations clindamycin HCl 300 mg PO Q8H 21 caps 0RF 7 days Coding Level of Care Code Tele Est Pt Level 2 (60960) Diagnoses Elevated PSA R97.20 Hypercholesterolemia E78.00 Immunization counseling Z71.89 Tick bite W57.XXXA Tick-borne disease B88.2
== END 2023-12-30 17:00 ==
LOC: HO.HMGFM 14:44
PROVIDERS: PCP Family Medicine; Visit Provider Family Medicine
DX: R97.20 Elevated prostate specific antigen [PSA] (principal); E78.00 Pure hypercholesterolemia, unspecified; Z71.89 Other specified counseling; W57.XXXA Bitten or stung by nonvenomous insect and other nonvenomous arthropods, initial encounter; B88.2 Other arthropod infestations
CPT/HCPCS: 99442

== ENCOUNTER 2024-01-04 07:11 | Outpatient (REF) | payer MEDICARE, SELFPAY ==
[2024-01-04 11:57] LABS: Uric Acid 7.3 mg/dL (3.4-7.0)
[2024-01-12 15:18] LABS: Babesia IgM <1:20 titer (<1:20)
== END 2024-01-04 07:12 | disposition home or self-care (01) ==
LOC: HO.WFDLDS 07:11
PROVIDERS: Visit Provider Family Medicine
DX: M10.9 Gout, unspecified (principal); T14.8XXA Other injury of unspecified body region, initial encounter; W57.XXXA Bitten or stung by nonvenomous insect and other nonvenomous arthropods, initial encounter
CPT/HCPCS: 36415; 84550; 86753

== ENCOUNTER 2024-01-20 13:22 | Outpatient (AMB) | payer MEDICARE, SELFPAY ==
--- NOTE | 2024-01-20 13:30 | MHC.OFFVIS ---
Vital Signs 01/20/24 13:32 Height 6 ft Weight 229 lb BMI 31.1 Pulse 70 Pulse Source Pulse Oximeter Pulse Oximetry (%) 98 Intake Visit Reasons: reff Stormy/ Babesiosis Allergies atorvastatin Allergy (Severe, Verified 01/20/24 13:33) cognitive decline HPI HPI reff Stormy/ Babesiosis: Details: He presents with embedded tick to PCP. He sent tick for evaluation to [facility] and saw babesiosis in tick. He was given Clindamycin and azithromycin for a week and felt somewhat better but still fatigued. [facility] Medical History Babesiosis Cardiomyopathy Hepatomegaly Hemochromatosis Gout Broken fibula Anticoagulant long-term use HTN (hypertension) PAF (paroxysmal atrial fibrillation) Surgical History History of removal of skin mole History of laparoscopic cholecystectomy (04/04/23) History of liver biopsy History of esophagogastroduodenoscopy (EGD) Hx of colonoscopy History of right mastoidectomy Family History Father Diabetes Mother Afib Cardiac pacemaker Brother Afib Sister Afib Uterine cancer Social History Household Members: Spouse Housing: House Alcohol intake: current Alcohol intake frequency: a few times a week Alcohol type: beer Patient Tobacco Use Status: Never used Tobacco e-Cigarette/Vaping Use: Never Used Second Hand Smoke Exposure: No service: No Current occupational status: retired Current occupational exposures/hazards: No Cognitive needs: No Hearing needs: No Vision needs: No Review of Systems Const All systems reviewed & are unremarkable except as noted in HPI and below Physical Exam Vital Signs: Last Vital Signs Pulse 70 01/20/24 13:32 Pulse Ox 98 01/20/24 13:32 BMI result Body Mass Index 31.1 Const General: cooperative Orientation/consciousness: patient oriented x3 HEENT Head: Yes normal to inspection Mouth: Normal oral and palatal mucosa present Eyes General: appearance normal, both eyes and all related structures Pupils: Equal, round and reactive pupils present Resp Effort & Inspection: normal respiratory effort Cardio Rate: regular rate Rhythm: regular rhythm GI Palpation (GI): Soft to palpation and nontender General: Yes no CVA tenderness Back/Spine/Pelvis Back: no CVA tenderness Skin General skin exam: no rashes or lesions noted Neuro General: patient oriented x3 Cranial nerves: Yes CN's II-XII intact bilaterally and Yes Equal, round and reactive pupils present Extrem General: Yes normal to inspection Psych Appearance: grossly normal Assessment & Plan Assessment & Plan (1) Babesiosis: Code(s): B60.00 - Babesiosis, unspecified Category: Medical Plan Check if babesiosis resolved,path review. Otherwise no further therapy Orders: Orders Pathologist Review - CBC 01/20/24 B60.00 - Babesiosis, unspecified Basic Metabolic Panel 01/20/24 B60.00 - Babesiosis, unspecified Liver Panel 01/20/24 B60.00 - Babesiosis, unspecified Other Ref Test - Misc 01/20/24 B60.00 - Babesiosis, unspecified Coding Level of Care Code New Pt Level 3 (27446) Diagnoses Babesiosis B60.00
[2024-01-20 13:32] VITALS: PULSE 70; O2SAT 98; BMI 31.1
== END 2024-01-20 14:09 | disposition home or self-care (01) ==
PROVIDERS: PCP Family Medicine; Visit Provider Internal Medicine
DX: B60.00 Babesiosis, unspecified (principal)
CPT/HCPCS: 99203

== ENCOUNTER 2024-01-20 13:22 | Outpatient (REF) | payer MEDICARE, SELFPAY ==
[2024-01-20 16:32] LABS: Alanine Aminotransferase 17 U/L (0-40); Albumin Level 3.8 g/dL (3.5-5.0); Alkaline Phosphatase 82 U/L (39-117); Anion Gap 8 (12-20); Aspartate Amino Transferase 19 U/L (5-37); Bilirubin Direct 0.2 mg/dL (0.0-0.5); Bilirubin Total 0.4 mg/dL (0.0-1.0); Blood Urea Nitrogen 18 mg/dL (9-16); Calcium 8.9 mg/dL (8.4-10.2); Carbon Dioxide 29 mmol/L (22-29); Chloride 110 mmol/L (96-108); Estimated Glomerular Filt Rate > 60; Glucose Random 106 mg/dL (60-115); Potassium 3.4 mmol/L (3.3-5.1); Sodium 144 mmol/L (135-145); Total Protein 7.4 g/dL (6.5-8.0)
== END 2024-01-20 13:23 | disposition home or self-care (01) ==
LOC: HO.LAB 13:22
PROVIDERS: PCP Family Medicine; Visit Provider Internal Medicine
DX: B60.00 Babesiosis, unspecified (principal)
CPT/HCPCS: 36415; 80048; 80076; 99202

== ENCOUNTER 2024-02-07 10:04 | Outpatient (REF) | payer MEDICARE, SELFPAY | END 2024-02-07 10:05 | disposition home or self-care (01) | LOC: HO.BBR 10:04 | PROVIDERS: PCP Family Medicine; Visit Provider Internal Medicine | DX: Z13.89 Encounter for screening for other disorder (principal) ==

== ENCOUNTER 2024-02-15 08:49 | Outpatient (AMB) | payer MEDICARE, SELFPAY ==
[2024-02-15 09:02] VITALS: BP 120/70; PULSE 62; BMI 30.2
--- NOTE | 2024-02-15 09:02 | MHC.OFFVIS ---
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 He has background history of paroxysmal atrial fibrillation. He has been on apixaban and flecainide. Clinically doing well and has no significant palpitations at this stage. No chest pain or shortness breath. He was complaining of right upper quadrant pain and was referred for ultrasound. This showed hepatosplenomegaly and he was referred to GI. His workup has shown concern for iron deposits in the liver but he is heterozygous for hemochromatosis. His brother has been diagnosed with hemochromatosis and is actually undergoing bloodletting. He continues to do well and has no chest discomfort or shortness of breath and is not experiencing any physical limitations but his echocardiogram performed in September is showing that his ejection fraction is 48%. This is lower than before. Given the concern for iron deposition and heterozygous hemochromatosis with question is that is there iron infiltration of myocardium also. Tolerating meds otherwise. Cardiac MRI was done which showed dilated left ventricle with mild global hypokinesis LVEF 48%. This small focal near transmural delayed enhancement in the distal inferior wall as well as small size near transmural delayed enhancement at the mid inferior septum and possibly at the basal anterior septum. Suspect fibrosis, dilated cardiomyopathy, elevated right heart pressures, less likely small infarct. The sequence for assessing iron deposits in the myocardium was incorrectly done on this exam. Continues to be asymptomatic and physically active. 02/15/2024: He returns for follow-up. He had MRI to look for hemochromatosis and no evidence of hemochromatosis were noticed. 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 He has received antibiotics for that. He also has an elevated PSA and is seeing Urology. He is asking about ablation as his friends have done that before with good success. Denying any palpitations otherwise and no symptoms as before. [facility] Medical History Babesiosis Cardiomyopathy Hepatomegaly Hemochromatosis Gout Broken fibula Anticoagulant long-term use HTN (hypertension) PAF (paroxysmal atrial fibrillation) Surgical History History of removal of skin mole History of laparoscopic cholecystectomy (04/04/23) History of liver biopsy History of esophagogastroduodenoscopy (EGD) Hx of colonoscopy History of right mastoidectomy Family History Father Diabetes Mother Afib Cardiac pacemaker Brother Afib Sister Afib Uterine cancer Social History Household Members: Spouse Housing: House Alcohol intake: current Alcohol intake frequency: a few times a week Alcohol type: beer Patient Tobacco Use Status: Never used Tobacco e-Cigarette/Vaping Use: Never Used Second Hand Smoke Exposure: No service: No Current occupational status: retired Current occupational exposures/hazards: No Cognitive needs: No Hearing needs: No Vision needs: No Review of Systems Const Denies chills, Denies fatigue, Denies fever(s), Denies frequent falls, Denies weakness, Denies weight gain and Denies weight loss ENT Denies dizziness Card Denies chest pain, Denies leg edema, Denies lightheadedness, Denies palpitations, Denies dyspnea and Denies dyspnea on exertion Resp Denies cough, Denies dyspnea and Denies dyspnea on exertion GI Denies hematochezia Musc Denies abnormal gait, Denies muscle weakness, Denies numbness, Denies radiating pain into limb and Denies tingling Neuro Denies abnormal gait, Denies dizziness, Denies frequent falls, Denies numbness, Denies tingling and Denies weakness Endo Denies fatigue and Denies palpitations Physical Exam Vital Signs: Last Vital Signs Pulse 62 02/15/24 09:02 BP 120/70 02/15/24 09:02 BMI result Body Mass Index 30.2 GENERAL APPEARANCE: in no acute distress, pleasant. NECK: no carotid bruit, no jugular venous distention. SKIN: no suspicious lesions, warm and dry. HEART: no murmurs, regular rate and rhythm. LUNGS: clear to auscultation bilaterally. ABDOMEN: soft, nontender. EXTREMITIES: no edema. PERIPHERAL PULSES: equal. NEUROLOGIC: No gross deficits, AAO X 3 Office Procedures EKG Details: Sinus rhythm 62 beats per minute, normal axis, first-degree AV block with HI interval 272 milliseconds, nonspecific intraventricular conduction delay. QTC 420 milliseconds. [id number], Complete Assessment & Plan Assessment & Plan (1) PAF (paroxysmal atrial fibrillation): Code(s): I48.0 - Paroxysmal atrial fibrillation Category: Medical (2) HTN (hypertension): Code(s): I10 - Essential (primary) hypertension Category: Medical (3) Cardiomyopathy: Code(s): I42.9 - Cardiomyopathy, unspecified Category: Medical (4) Hemochromatosis: Code(s): E83.119 - Hemochromatosis, unspecified Category: Medical Plan Pleasant 68-year-old gentleman here for follow-up. He has background of mild cardiomyopathy. He also has hemochromatosis. Cardiac MRI was done previously which showed small area of late gadolinium enhancement but no iron overload was noted. Clinically he has been stable and doing well. For AFib he has been on flecainide and metoprolol. He has been tolerating them well. He is on anticoagulation with apixaban. Adding Farxiga 5 mg daily. Titrate beta-naima further due to first-degree AV block and bradycardia at baseline and heart rate in low 60s. We will repeat echocardiography again in few months. If any change in ejection fraction then consider changing him to Entresto from lisinopril. I am referring him to electrophysiology for discussion for ablation. In the meantime same medications with the addition of Farxiga. Thank you for allowing me to participate in the care of your patient. Please feel free to contact me if you have any questions. Orders: Orders CA echo transthorac w con Today I48.0 - Paroxysmal atrial fibrillation Referrals Cardiology Referral I48.0 - Paroxysmal atrial fibrillation Medications: New dapagliflozin propanediol (Farxiga) 5 mg PO DAILY 30 tabs 4RF Coding Level of Care Code Est Pt Level 4 (04213) Diagnoses PAF (paroxysmal atrial fibrillation) I48.0 HTN (hypertension) I10 Cardiomyopathy I42.9 Hemochromatosis E83.119 CPT Codes EKG - CPT: [id number], Complete ([id number])
== END 2024-02-15 09:35 | disposition home or self-care (01) ==
PROVIDERS: PCP Family Medicine; Visit Provider Internal Medicine Cardiovascular Disease
DX: I48.0 Paroxysmal atrial fibrillation (principal); I10 Essential (primary) hypertension; I42.9 Cardiomyopathy, unspecified; E83.119 Hemochromatosis, unspecified
CPT/HCPCS: 93010; 99214

== ENCOUNTER → 2024-02-15 08:49 | Outpatient (BNVA) | payer MEDICARE, SELFPAY | PROVIDERS: PCP Family Medicine; Visit Provider Internal Medicine Cardiovascular Disease | DX: R97.20 Elevated prostate specific antigen [PSA] (principal); N41.9 Inflammatory disease of prostate, unspecified; I48.0 Paroxysmal atrial fibrillation; I10 Essential (primary) hypertension; I42.9 Cardiomyopathy, unspecified; E83.119 Hemochromatosis, unspecified; I44.0 Atrioventricular block, first degree | CPT/HCPCS: 81003; 93005; 99202; 99212 ==

== ENCOUNTER 2024-02-15 10:50 | Outpatient (AMB) | payer MEDICARE, SELFPAY ==
--- NOTE | 2024-02-15 10:58 | MHC.OFFVIS ---
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 Accompanied by: Self / Same As Patient Allergies atorvastatin Allergy (Severe, Verified 02/15/24 11:34) cognitive decline Medication List - Last Reconciled 02/15/24 by JADON Pina- allopurinol 200 mg (2 x 100 mg) PO DAILY 30 days amlodipine 5 mg PO DAILY apixaban (Eliquis) 5 mg PO BID dapagliflozin propanediol (Farxiga) 5 mg PO DAILY ezetimibe 10 mg PO DAILY 90 days flecainide 100 mg PO BID 90 days lisinopril-hydrochlorothiazide 20-12.5 mg 2 tabs PO DAILY metoprolol succinate ER 25 mg PO DAILY 90 days sulfamethoxazole-trimethoprim 800-160 mg (Bactrim DS) 1 tab PO BID 14 days trazodone 50 mg PO BEDTIME 90 days HPI Comments Details: Price is a pleasant 68-year-old male patient of Dr. Burrows. He has a past medical history of cardiomyopathy follows with Dr. Luna, hepatomegaly, hemochromatosis follows with Dr. Christianson, gout, hypertension, paroxysmal atrial fibrillation on anticoagulation. He presents to the office today as a new patient for an elevated PSA. PSAs are as follows: PSAs: 05/23 2.1, 05/24 3.1, 11/26 5.7, 12/24 5.9 In discussion with the patient today reports to be doing and feeling well. He reports having followed up with his PCP at which time he was noted to have an elevated PSA and recommendations were made for urology referral. When asked he denies any known family history of prostate cancer however reports his dad had an enlarged prostate and underwent a GreenLight laser of his prostate in his 80s. He currently denies any bothersome urinary issues or concerns. He does report ED and utilizes as needed Viagra 45 mg prior to sexual activity and feels this has been extremely helpful. In office urinalysis results reviewed with the patient today. FELECIA performed boggy prostate noted no nodules or masses palpated. Discussed at length potential for prostatitis given boggy prostate. He denies urinary urgency, urinary frequency, incontinence, nocturia, hematuria, dysuria, foul smelling urine, changes to urinary stream, flank pain, fever, and or chills. He is happy with his current voiding parameters. Discussed at length potential causes for elevated PSA. He otherwise offers no other issues or concerns at this time. [facility] Medical History Babesiosis Cardiomyopathy Hepatomegaly Hemochromatosis Gout Broken fibula Anticoagulant long-term use HTN (hypertension) PAF (paroxysmal atrial fibrillation) Surgical History History of removal of skin mole History of laparoscopic cholecystectomy (04/04/23) History of liver biopsy History of esophagogastroduodenoscopy (EGD) Hx of colonoscopy History of right mastoidectomy Family History Father Diabetes Mother Afib Cardiac pacemaker Brother Afib Sister Afib Uterine cancer Social History Household Members: Spouse Housing: House Alcohol intake: current Alcohol intake frequency: a few times a week Alcohol type: beer Patient Tobacco Use Status: Never used Tobacco e-Cigarette/Vaping Use: Never Used Second Hand Smoke Exposure: No service: No Current occupational status: retired Current occupational exposures/hazards: No Cognitive needs: No Hearing needs: No Vision needs: No Review of Systems Const Reports no additional complaints Eyes Reports no additional complaints ENT Reports no additional complaints Card Reports as per HPI Resp Reports no additional complaints GI Reports as per HPI Reports as per HPI Musc Reports no additional complaints Neuro Reports no additional complaints Psych Reports no additional complaints Endo Reports no additional complaints [place]/Lymph Reports as per HPI Aller/Immun Reports no additional complaints Physical Exam Const General: cooperative, healthy appearing, comfortable, no acute distress, well developed, alert and awake Orientation/consciousness: patient oriented x3 Limitations: no limitations HEENT Head: Yes normal to inspection, Yes normocephalic and Yes atraumatic Ears: hearing grossly normal bilaterally Eyes General: appearance normal, both eyes and all related structures Neck Neck: Yes normal visual inspection and Yes trachea midline Chest Chest palpation & inspection: normal inspection of the chest Resp Effort & Inspection: normal respiratory effort and able to speak in complete sentences Cardio Rate: regular rate GI Inspection: Yes normal to inspection Rectal Exam - Male: Yes visual inspection normal and Yes prostate abnormal (boggy ) General: Yes no CVA tenderness Back/Spine/Pelvis Back: no CVA tenderness Skin General skin exam: no rashes or lesions noted Neuro General: patient oriented x3 Extrem General: Yes normal to inspection Psych Appearance: grossly normal and well kempt Mental Status: mental status grossly normal Speech and movement: Normal speech and movement present and Clear speech present Affect: normal affect Attitude: cooperative Thought process: Normal thought process present Thought content: Normal thought content present Insight: Fair insight present (Psych) Judgement: Fair judgement present (Psych) Results AMB Urinalysis, Automated UA Leukoctes 0 Fabien/uL Last Edit by [employer] on 02/15/24 11:10 UA Nitrite Negative Last Edit by [employer] on 02/15/24 11:10 UA Urobilinogen 0.2 mg/dL Last Edit by [employer] on 02/15/24 11:10 UA Protein 30 mg/dL Last Edit by [employer] on 02/15/24 11:10 UA pH 6.0 Last Edit by [employer] on 02/15/24 11:10 UA Blood 0 Cristi/uL Last Edit by [employer] on 02/15/24 11:10 UA Specific [place] 1.020 Last Edit by [employer] on 02/15/24 11:10 UA Ketone Negative Last Edit by [employer] on 02/15/24 11:10 UA Bilirubin 0 mg/dL Last Edit by [employer] on 02/15/24 11:10 UA Glucose 0 mg/dL Last Edit by [employer] on 02/15/24 11:10 Results Reviewed Results Reviewed: Laboratory Last Values Urine pH (Auto) 6.0 02/15/24 11:09 Specific [place] (Auto) 1.020 02/15/24 11:09 Urine Protein (Auto) 30 mg/dL 02/15/24 11:09 Glucose (UA)(Auto) 0 mg/dL 02/15/24 11:09 Urine Ketones (Auto) Negative 02/15/24 11:09 Urine Blood (Auto) 0 Cristi/uL 02/15/24 11:09 Urine Nitrite (Auto) Negative 02/15/24 11:09 Urine Bilirubin (Auto) 0 mg/dL 02/15/24 11:09 Urine Urobilinogen (Auto) 0.2 mg/dL 02/15/24 11:09 Leukocyte Esterase (Auto) 0 Fabien/uL 02/15/24 11:09 Assessment & Plan Assessment & Plan (1) Elevated PSA: Code(s): R97.20 - Elevated prostate specific antigen [PSA] Category: Medical (2) Prostatitis: Code(s): N41.9 - Inflammatory disease of prostate, unspecified Category: Medical Plan In office urinalysis results reviewed with the patient today; as noted above. Recent PSA results reviewed with the patient today; as noted above. FELECIA noted boggy prostate Start Bactrim as discussed and prescribed. Will obtain redraw of PSA status post completion of antibiotic therapy 6 weeks Will obtain retroperitoneal ultrasound for further assessment evaluation. Continue as needed Viagra for ED; as patient reports this to be working well for him. Discussed at length potential causes for elevated PSA as well as further treatment options. Patient currently denies any bothersome urinary issues or concerns. He reports be happy with current voiding parameters. Follow-up in 2-3 months with imaging and labs to be completed prior; or sooner with any issues, concerns, and or questions. Orders: Orders PSA,Total (Free>4and<10) 6 Weeks R97.20 - Elevated prostate specific antigen [PSA] US retroperitoneal comp Today N41.9 - Inflammatory disease of prostate, unspecified, R97.20 - Elevated prostate specific antigen [PSA] AMB Urinalysis Automated Today Z13.9 - Encounter for screening, unspecified Medications: New sulfamethoxazole-trimethoprim 800-160 mg (Bactrim DS) 1 tab PO BID 14 days 28 tabs 0RF N39.0 - Urinary tract infection, site not specified Coding Level of Care Code New Pt Level 4 (52139) Diagnoses Elevated PSA R97.20 Prostatitis N41.9
== END 2024-02-15 11:35 | disposition home or self-care (01) ==
PROVIDERS: PCP Family Medicine; Visit Provider Nurse Practitioner Family
DX: R97.20 Elevated prostate specific antigen [PSA] (principal); N41.9 Inflammatory disease of prostate, unspecified; Z13.9 Encounter for screening, unspecified
CPT/HCPCS: 99204

== ENCOUNTER → 2024-03-13 07:57 | Outpatient (REF) | payer MEDICARE, SELFPAY ==
--- NOTE | 2024-03-13 07:59 | CA_ITS ---
Transthoracic Echocardiogram Patient (Last, First, Middle): Price Florence A Gender: Male Date of : 1955 Age: 68 Procedure Date: 03/13/2024 Procedure Type: Transthoracic Echocardiogram Location: OP Height: 182.88 cm Weight: 97.52 kg BSA: 2.20 m2 Heart Rate: 58 bpm BP: 120 / 70 mmHg Professor Of Anthropology: SB Referring MD: Gonzalo Luna MD Symptoms: I48.0 - Paroxysmal atrial fibrillation Study Quality: Adequate ECG Rhythm: Bradycardia Conclusions: - Normal left ventricular cavity size. There is normal left ventricular wall thickness. The left ventricular systolic function is low normal. The visually estimated ejection fraction is between 50-55%. - The basal inferior segment is hypokinetic. - Mildly increased right ventricular cavity size. There is normal right ventricular systolic function. - The right atrium is severely dilated. Findings Left Ventricle Normal left ventricular cavity size. There is normal left ventricular wall thickness. The left ventricular systolic function is low normal. The visually estimated ejection fraction is between 50-55%. There is evidence of regional wall motion abnormalities. Diastolic function is normal for age. Wall Motion Rest Echo Findings The basal inferior segment is hypokinetic. Right Ventricle Mildly increased right ventricular cavity size. There is normal right ventricular systolic function. Atria The left atrium is mildly dilated. The right atrium is severely dilated. Aortic Valve Normal aortic valve structure and function. There is no aortic valve stenosis. There is no aortic valve regurgitation. Mitral Valve The mitral valve appears normal. There is no mitral valve regurgitation. There is no mitral valve stenosis. Pulmonic Valve The pulmonic valve is normal. There is no pulmonic valve regurgitation. Tricuspid Valve Normal tricuspid valve structure. There is no tricuspid valve regurgitation. Tricuspid regurgitation envelope is inadequate for calculation of right ventricular systolic pressure. Indeterminate right atrial pressure. Great Vessels There is mild dilatation of the sinuses of Valsalva measuring 4.00 cm and mild dilatation of the ascending aorta measuring 3.70 cm. The visualized portions of the pulmonary artery and branches are normal. Venous The inferior vena cava was not well visualized. Pericardium/Pleural There is no evidence of pericardial effusion. Prior Study Comparison Changes noted compared to prior study dated: 09/13/2022. EF 50-55%, RA dilated, mild dilation of aorta. Measurements 2D Linear Measurements IVSd: 1.07 0.6-0.9/0.6-1.0 cm LVIDd: 4.95 3.9-5.3/4.2-5.9 cm LVIDd Index: 2.25 2.4-3.2/2.2-3.1 cm/m2 LVIDs: 3.91 2.0-3.6 cm LVPWd: 0.87 0.7-1.1 cm LA Diam: 4.40 2.7-3.8/3.0-4.0 cm LAIDs Index: 2.00 1.5-2.3 cm/m2 LV Mass: 213.44 67-162/88-224 g LV Mass Index: 97.02 43-95/49-115 g/m2 LVOT Diam: 2.60 3.0+(-)1.3 cm 2D Systolic Function EF 4C: 58.30 >55% EF 2C: 50.20 >55% EF BiP: 53.40 >55% Mitral Valve MV Pk E: 0.48 MV PK A: 0.63 MV Decel Time: 312.00 E/A: 0.80 E'Medial: 5.44 E/E' Med: 8.80 PHT: 91.00 MVA PHT: 2.42 Decel Lumpkin: 1.53 Aortic Valve AoV Pk Higinio: 1.06 AoV Pk Grad: 4.00 LVOT LVOT Pk Higinio: 0.71 LVOT Mn Higinio: 0.53 LVOT VTI: 0.17 LVOT Pk Grad: 2.00 LVOT Mn Grad: 1.00 LVOT Diam: 2.60 LVOT Area: 5.31 Diastolic Function MV Pk E: 0.48 MV Pk A: 0.63 E/A: 0.80 E'Medial: 5.44 E/E' Med: 8.80 Right Ventricle TAPSE (mm): 26.40 TVS' Higinio: 12.60 Great Vessels Aorta Sinus of Valsalva: 4.00 2.0-3.5 cm Ao Asc: 3.70 2.1-3.4 cm Pulmonary Valve PV Pk Higinio: 1.30 Peak PV Grad: 7.00 Updated in Other Vendor System with Status of Final Gonzalo Luna MD electronically signed on 03/14/2024 2:32:40 PM with status of Final
== END ==
LOC: HO.CARD 07:57
PROVIDERS: PCP Family Medicine; Visit Provider Internal Medicine Cardiovascular Disease
DX: I48.0 Paroxysmal atrial fibrillation (principal)
CPT/HCPCS: 93306

== ENCOUNTER → 2024-03-13 07:59 | Outpatient (BNV) | payer MEDICARE, SELFPAY | PROVIDERS: PCP Family Medicine; Visit Provider Internal Medicine Cardiovascular Disease | DX: I48.0 Paroxysmal atrial fibrillation (principal); R93.1 Abnormal findings on diagnostic imaging of heart and coronary circulation | CPT/HCPCS: 93306 ==

== ENCOUNTER 2024-03-29 08:31 | Outpatient (AMB) | payer MEDICARE, SELFPAY ==
--- NOTE | 2024-03-29 08:35 | A.OFFPC_ITS ---
Vital Signs 03/29/24 08:37 Height 6 ft Weight 221 lb 8 oz BMI 30.0 BP 120/80 Blood Pressure Location Lt brachial Position Sitting Pulse 63 Pulse Source Pulse Oximeter Pulse Oximetry (%) 97 Oxygen Delivery Method Room Air Intake Visit Reasons: 3 month follow up Intake Note: Patient is here to follow up on hypertension and chronic conditions. Allergies atorvastatin Allergy (Severe, Verified 03/29/24 08:39) cognitive decline Medication List - Last Reconciled 03/29/24 by Ronnie Burrows MD allopurinol 200 mg (2 x 100 mg) PO DAILY 30 days amlodipine 5 mg PO DAILY apixaban (Eliquis) 5 mg PO BID ezetimibe 10 mg PO DAILY 90 days flecainide 100 mg PO BID 90 days lisinopril-hydrochlorothiazide 20-12.5 mg 2 tabs PO DAILY metoprolol succinate ER 25 mg PO DAILY 90 days sulfamethoxazole-trimethoprim 800-160 mg (Bactrim DS) 1 tab PO BID 14 days trazodone 50 mg PO BEDTIME 90 days Tobacco use date assessed: 03/29/24 Fall risk assessment: No Falls in past year Last assessed Fall Risk: 03/29/24 Dental Screening Dental Screen Date: 05/25/23 Did you have a dental visit in the last 12 months?: Yes Did you have a dental problem in the last 6 months where you did not have access to dental care?: No Was dental information given to patient?: Patient has dentist HPI 3 month follow up HPI Details 68 y/o male presents to f/u hypertension and chronic conditions. Blood pressure today 120/80. He is on lisinopril-hydrochlorothiazide 20-12.5mg, metoprolol 25mg daily. He f/u with Cardiology for cardiomyopathy, paroxysmal AFib. HPI Comments History of Present Illness Details Documentation assistance for Ronnie Burrows MD, was provided by Darek Parr, Sex Worker Or Escort on 03/29/2024 at 9:00 AM EST. I, Dr. Burrows, have read, observed, and verified documentation. [facility] Medical History Babesiosis Cardiomyopathy Hepatomegaly Hemochromatosis Gout Broken fibula Anticoagulant long-term use HTN (hypertension) PAF (paroxysmal atrial fibrillation) Surgical History History of removal of skin mole History of laparoscopic cholecystectomy (04/04/23) History of liver biopsy History of esophagogastroduodenoscopy (EGD) Hx of colonoscopy History of right mastoidectomy Family History Father Diabetes Mother Afib Cardiac pacemaker Brother Afib Sister Afib Uterine cancer Social History Household Members: Spouse Housing: House Alcohol intake: current Alcohol intake frequency: a few times a week Alcohol type: beer Patient Tobacco Use Status: Never used Tobacco e-Cigarette/Vaping Use: Never Used Second Hand Smoke Exposure: No service: No Current occupational status: retired Current occupational exposures/hazards: No Cognitive needs: No Hearing needs: No Vision needs: No Questionnaire Thrive Questionnaire Date Thrive assessed: 11/22/23 LEXA-7 AMB Questionnaire LEXA-7 Date LEXA - 7 assessed: 11/22/23 Source: Developed by Drs. Addy Larson, Nancy Hernández, Star Goldstein and colleagues, with an educational danny from [employer]. Review of Systems Const Denies chills, Denies fatigue, Denies fever(s), Denies headache(s) and Denies weakness ENT Denies dizziness and Denies headache(s) Card Denies dyspnea Resp Denies cough, Denies dyspnea, Denies wheezing and Denies other (shortness of breath) Musc Denies numbness and Denies tingling Neuro Denies dizziness, Denies headache(s), Denies numbness, Denies tingling and Denies weakness Psych Denies anxiety and Denies depression Endo Denies fatigue Aller/Immun Denies wheezing Physical exam (Primary Care) Vital Signs: Last Vital Signs Pulse 63 03/29/24 08:37 BP 120/80 03/29/24 08:37 Pulse Ox 97 03/29/24 08:37 Oxygen Delivery Method Room Air 03/29/24 08:37 BMI result Body Mass Index 30.0 Tobacco/Smoking Status: Tobacco use Status Tobacco use date assessed 03/29/24 03/29/24 08:43 Patient Tobacco Use Status Never used Tobacco 03/29/24 08:37 e-Cigarette/Vaping Use Never Used 03/29/24 08:37 Thrive Assessment: Date of Thrive Assessment Date Thrive assessed 11/22/23 03/29/24 08:37 Const General: well developed; No acute distress Nutritional Appearance: well nourished Orientation/consciousness: patient oriented x3 [facility] Head: Yes normocephalic and Yes atraumatic Eyes General: appearance normal, both eyes and all related structures Pupils: Equal, round and reactive pupils present EOM: EOMs intact bilaterally Resp Effort & Inspection: normal respiratory effort Auscultation: clear to auscultation bilaterally Cardio Rate: regular rate Rhythm: regular rhythm Heart sounds: S1 normal heart sound present, S2 normal heart sound present, no gallops, no murmurs and no rubs Neuro General: patient oriented x3 and gait normal Cranial nerves: Yes Equal, round and reactive pupils present Psych Affect: normal affect Assessment and Plan Assessment & Plan (1) HTN (hypertension): Code(s): I10 - Essential (primary) hypertension Plan: Blood?pressure?is?controlled.??Goal?is?less?than?140/90 Continue?current?medication (2) PAF (paroxysmal atrial fibrillation): Code(s): I48.0 - Paroxysmal atrial fibrillation Plan: Saw?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 antibiotics?for?prostatitis?and?has?repeat?PSA?level?for?today?as?well?as?retrop eritoneal?ultrasound and?then?will?follow-up?with?urology?again Medications: Changed From allopurinol 200 mg (2 x 100 mg) PO DAILY 30 days 60 tabs 2RF To allopurinol 200 mg (2 x 100 mg) PO DAILY 90 days 180 tabs 3RF Refilled trazodone 50 mg PO BEDTIME 90 days 90 tabs 2RF Coding Level of Care Code Est Pt Level 4 (17193) Diagnoses HTN (hypertension) I10 PAF (paroxysmal atrial fibrillation) I48.0 Babesiosis B60.00 Prostatitis N41.9
[2024-03-29 08:37] VITALS: BP 120/80; PULSE 63; O2SAT 97
== END 2024-03-29 09:13 | disposition home or self-care (01) ==
LOC: HO.HMGFM 08:31
PROVIDERS: PCP Family Medicine; Visit Provider Family Medicine
DX: I10 Essential (primary) hypertension (principal); I48.0 Paroxysmal atrial fibrillation; B60.00 Babesiosis, unspecified; N41.9 Inflammatory disease of prostate, unspecified
CPT/HCPCS: 99214

== ENCOUNTER 2024-03-29 09:10 | Outpatient (REF) | payer MEDICARE, SELFPAY ==
[2024-03-29 12:39] LABS: PSA,Total (Free>4and<10) 5.59 ng/mL (0.00-4.00)
[2024-03-30 11:13] LABS: Free Prostate Spec Ag 0.8 ng/mL; Percent Free Prostate Spec Ag 14 % (calc) (>25); Prostate Specific Ag Total 5.8 ng/mL (< OR = 4.0)
== END 2024-03-29 09:11 | disposition home or self-care (01) ==
LOC: HO.WFDLDS 09:10
PROVIDERS: Visit Provider Nurse Practitioner Family
DX: R97.20 Elevated prostate specific antigen [PSA] (principal); Z12.5 Encounter for screening for malignant neoplasm of prostate
CPT/HCPCS: 36415; 84153; 84154

== ENCOUNTER 2024-04-02 09:46 | Outpatient (REF) | payer MEDICARE, SELFPAY | END 2024-04-02 09:47 | disposition home or self-care (01) | LOC: HO.US 09:46 | PROVIDERS: PCP Family Medicine; Visit Provider Nurse Practitioner Family | DX: N41.9 Inflammatory disease of prostate, unspecified (principal); R97.20 Elevated prostate specific antigen [PSA]; R33.9 Retention of urine, unspecified | CPT/HCPCS: 51798; 76770; 81003; 99212 ==

== ENCOUNTER 2024-04-02 10:55 | Outpatient (AMB) | payer MEDICARE, SELFPAY ==
--- NOTE | 2024-04-02 10:56 | MHC.OFFVIS ---
Intake Visit Reasons: incomplete bladder emptying Intake Note: Patient presents today for incomplete bladder emptying Urology Medications: none Blood Thinner: Eliquis PVR: >999ml's Manufacturing Assembler Required: No Accompanied by: Self / Same As Patient Allergies atorvastatin Allergy (Severe, Verified 04/02/24 11:07) cognitive decline Medication List - Last Reconciled 04/02/24 by Jodee Irizarry [facility]- allopurinol 200 mg (2 x 100 mg) PO DAILY 90 days amlodipine 5 mg PO DAILY apixaban (Eliquis) 5 mg PO BID ezetimibe 10 mg PO DAILY 90 days flecainide 100 mg PO BID 90 days lisinopril-hydrochlorothiazide 20-12.5 mg 2 tabs PO DAILY metoprolol succinate ER 25 mg PO DAILY 90 days tamsulosin 0.4 mg PO BEDTIME 30 days trazodone 50 mg PO BEDTIME 90 days HPI Comments Details: Price is a pleasant 68-year-old male patient of Dr. Burrows. He has a past medical history of cardiomyopathy follows with Dr. Luna, hepatomegaly, hemochromatosis follows with Dr. Christianson, gout, hypertension, paroxysmal atrial fibrillation on anticoagulation. He presents to the office today for follow-up. Of note, patient was undergoing retroperitoneal ultrasound that was ordered by this provider at which time ultrasound department noted significant increase in postvoid residual and recommendations were made for Urology follow-up. In office urinalysis results reviewed with the patient today. PVR greater than 999 mLs. Discussed at length incomplete bladder emptying/urinary retention/overflow incontinence. Patient reports he believes this is related to his increase in fluid consumption prior to his retroperitoneal ultrasound. Discussed further treatment options with CIC verses Sutton catheter however patient declines at this time as he feels he is able to void. He currently denies any bothersome urinary issues or concerns. Retroperitoneal ultrasound remains on red at this time as this was just completed today. PSAs are as follows: PSAs: 05/23 2.1, 05/24 3.1, 11/26 5.7, 12/24 5.9 In discussion with the patient today reports to be doing and feeling well. Retroperitoneal ultrasound was ordered for further assessment evaluation will await results. Patient denies any known family history of prostate cancer however reports his dad had an enlarged prostate and underwent a GreenLight laser of his prostate in his 80s. He currently denies any bothersome urinary issues or concerns. He does report ED and utilizes as needed Viagra 50 mg prior to sexual activity and feels this has been extremely helpful. During last office visit FELECIA was performed and noted to be boggy. He reports having completed antibiotic therapy as prescribed. He denies urinary urgency, urinary frequency, incontinence, nocturia, hematuria, dysuria, foul smelling urine, changes to urinary stream, flank pain, fever, and or chills. He is happy with his current voiding parameters. Discussed at length potential causes for elevated PSA. Discussed correlation of incomplete bladder emptying with elevated PSA. He otherwise offers no other issues or concerns at this time. [facility] Medical History Babesiosis Cardiomyopathy Hepatomegaly Hemochromatosis Gout Broken fibula Anticoagulant long-term use HTN (hypertension) PAF (paroxysmal atrial fibrillation) Surgical History History of removal of skin mole History of laparoscopic cholecystectomy (04/04/23) History of liver biopsy History of esophagogastroduodenoscopy (EGD) Hx of colonoscopy History of right mastoidectomy Family History Father Diabetes Mother Afib Cardiac pacemaker Brother Afib Sister Afib Uterine cancer Social History Household Members: Spouse Housing: House Alcohol intake: current Alcohol intake frequency: a few times a week Alcohol type: beer Patient Tobacco Use Status: Never used Tobacco e-Cigarette/Vaping Use: Never Used Second Hand Smoke Exposure: No service: No Current occupational status: retired Current occupational exposures/hazards: No Cognitive needs: No Hearing needs: No Vision needs: No Review of Systems Const Reports no additional complaints Eyes Reports no additional complaints ENT Reports no additional complaints Card Reports as per HPI Resp Reports no additional complaints GI Reports as per HPI Reports as per HPI Musc Reports no additional complaints Neuro Reports no additional complaints Psych Reports no additional complaints Endo Reports no additional complaints [place]/Lymph Reports as per HPI Aller/Immun Reports no additional complaints Physical Exam Const General: cooperative, healthy appearing, comfortable, no acute distress, well developed, alert and awake Orientation/consciousness: patient oriented x3 Limitations: no limitations HEENT Head: Yes normal to inspection, Yes normocephalic and Yes atraumatic Ears: hearing grossly normal bilaterally Eyes General: appearance normal, both eyes and all related structures Neck Neck: Yes normal visual inspection and Yes trachea midline Chest Chest palpation & inspection: normal inspection of the chest Resp Effort & Inspection: normal respiratory effort and able to speak in complete sentences Cardio Rate: regular rate GI Inspection: Yes normal to inspection General: Yes no CVA tenderness Back/Spine/Pelvis Back: no CVA tenderness Skin General skin exam: no rashes or lesions noted Neuro General: patient oriented x3 Extrem General: Yes normal to inspection Psych Appearance: grossly normal and well kempt Mental Status: mental status grossly normal Speech and movement: Normal speech and movement present and Clear speech present Affect: normal affect Attitude: cooperative Thought process: Normal thought process present Thought content: Normal thought content present Insight: Fair insight present (Psych) Judgement: Fair judgement present (Psych) Office Procedures Post Void Residual Post Residual Void Post Void Residual (PVR): 999 [id number] Void Residual by ultrasound Results AMB Urinalysis, Automated UA Leukoctes 0 Fabien/uL Last Edit by [employer] on 04/02/24 11:05 UA Nitrite Negative Last Edit by [employer] on 04/02/24 11:05 UA Urobilinogen 0.2 mg/dL Last Edit by [employer] on 04/02/24 11:05 UA Protein 0 mg/dL Last Edit by [employer] on 04/02/24 11:05 UA pH 6.0 Last Edit by [employer] on 04/02/24 11:05 UA Blood 0 Cristi/uL Last Edit by [employer] on 04/02/24 11:05 UA Specific [place] 1.015 Last Edit by [employer] on 04/02/24 11:05 UA Ketone Negative Last Edit by [employer] on 04/02/24 11:05 UA Bilirubin 0 mg/dL Last Edit by [employer] on 04/02/24 11:05 UA Glucose 0 mg/dL Last Edit by [employer] on 04/02/24 11:05 Results Reviewed Results Reviewed: Laboratory Last Values Urine pH (Auto) 6.0 04/02/24 11:04 Specific [place] (Auto) 1.015 04/02/24 11:04 Urine Protein (Auto) 0 mg/dL 04/02/24 11:04 Glucose (UA)(Auto) 0 mg/dL 04/02/24 11:04 Urine Ketones (Auto) Negative 04/02/24 11:04 Urine Blood (Auto) 0 Cristi/uL 04/02/24 11:04 Urine Nitrite (Auto) Negative 04/02/24 11:04 Urine Bilirubin (Auto) 0 mg/dL 04/02/24 11:04 Urine Urobilinogen (Auto) 0.2 mg/dL 04/02/24 11:04 Leukocyte Esterase (Auto) 0 Fabien/uL 04/02/24 11:04 Assessment & Plan Assessment & Plan (1) Incomplete bladder emptying: Code(s): R33.9 - Retention of urine, unspecified Category: Medical (2) Urinary retention: Code(s): R33.9 - Retention of urine, unspecified Category: Medical (3) Elevated PSA: Code(s): R97.20 - Elevated prostate specific antigen [PSA] Category: Medical Plan In office urinalysis results reviewed with the patient today; as noted above. PVR greater than 999 mL. Discussed at length potential causes for incomplete bladder emptying/urinary retention; discussed further treatment options to include CIC versus indwelling Sutton; patient declines at this time Discussed risks of incomplete bladder emptying and urinary retention without intervention. Start Flomax as discussed and prescribed. Will await final read of retroperitoneal ultrasound. Discussed potential causes elevated PSA; discussed correlation of incomplete bladder emptying with elevated PSA. Discussed importance of seeking medical treatment or calling office if unable to void. Keep scheduled follow-up in 2 weeks Orders: Orders AMB Urinalysis Automated Today Z13.9 - Encounter for screening, unspecified AMB Post Void Residual by ultrasound Today Z13.9 - Encounter for screening, unspecified Medications: New tamsulosin 0.4 mg PO BEDTIME 30 days 30 caps 3RF N40.1 - Benign prostatic hyperplasia with lower urinary tract symptoms, R35.1 - Nocturia Patient Instructions: The patient had an opportunity to ask questions regarding the treatment plan. All questions were answered. Physical exam, labs, and imaging were discussed and reviewed in detail. As well as risks, benefits, and discussion of treatment choices. No major barriers to understanding were identified. The patient expressed understanding and agreement with the above treatment plan. The patient was made aware they should contact our office by phone for worsening of their current condition, the appearance of new symptoms, or with any questions or concerns. Compliance is encouraged with any medications and follow up testing that is ordered. It is a privilege to be allowed the opportunity to participate in? your urological care.? Again, if you have any questions or concerns If you have any questions or concerns please do not hesitate to contact me. The office is [phone]. This note is constructed using voice recognition software. While every effort has been made to ensure accuracy automotive heavy mechanic errors may have been included. Yours sincerely, JADON Pina-MADDISON Coding Level of Care Code Est Pt Level 4 (44160) Diagnoses Incomplete bladder emptying R33.9 Urinary retention R33.9 Elevated PSA R97.20 CPT Codes Post Residual Void - PVR CPT Code: 53297-Woex Void Residual by ultrasound ([id number])
== END 2024-04-02 11:13 | disposition home or self-care (01) ==
LOC: HO.HUSH 10:55
PROVIDERS: PCP Family Medicine; Visit Provider Nurse Practitioner Family
DX: R33.9 Retention of urine, unspecified (principal); R97.20 Elevated prostate specific antigen [PSA]; Z13.9 Encounter for screening, unspecified
CPT/HCPCS: 99214

== ENCOUNTER 2024-04-09 08:53 | Outpatient (REF) | payer MEDICARE, SELFPAY ==
--- NOTE | ~2024-04-09 | US_ITS ---
EXAMINATION: US RETROPERITONEAL COMPLETE (RENAL) CLINICAL INFORMATION: Inflammatory disease of prostate, unspecified. COMPARISON: Ultrasound abdomen complete 11/29/2023 and 02/04/2023. MR abdomen 08/19/2022. TECHNIQUE: Real-time imaging of the kidneys and bladder. FINDINGS: RIGHT KIDNEY: 11.7 x 6.6 x 5.7 cm (SAG x AP x TRV). The kidney is normal in size, contour, and echogenicity. Renal cortical thickness is normal. No calculi or focal parenchymal lesions. No hydronephrosis. LEFT KIDNEY: 11.5 x 7.0 x 4.6 cm (SAG x AP x TRV). The kidney is normal in size, contour, and echogenicity. Renal cortical thickness is normal. No calculi or focal parenchymal lesions. No hydronephrosis. BLADDER: Well distended and normal. Bilateral ureteral jets are demonstrated. Prevoid bladder volume is 1165 mL. Postvoid bladder volume is 996 mL. PROSTATE: Large prostate with volume of 69.0 mL. US/US retroperitoneal comp IMPRESSION: 1. Normal appearance of the kidneys. 2. Large post void residual. 3. Enlarged prostate. Jodee DIOP was made aware of the post void volume. The patient is heading to the Urology office.
== END 2024-04-09 08:54 | disposition home or self-care (01) ==
LOC: HO.BBR 08:53
PROVIDERS: PCP Family Medicine; Visit Provider Internal Medicine
DX: Z13.89 Encounter for screening for other disorder (principal)

== ENCOUNTER 2024-04-19 09:32 | Outpatient (AMB) | payer MEDICARE, SELFPAY ==
--- NOTE | 2024-04-19 09:52 | MHC.OFFVIS ---
Intake Visit Reasons: 2m/US/PSA(set) Intake Note: Patient presents today for follow up visit on: incomplete bladder emptying, psa lab and ultrasound results PSA: 5.8 Imaging Complete: 04/02/24 Urology Medications: Tamsulosin Blood Thinner: Eliquis PVR: 945ml's Glass Breaker Required: No Accompanied by: Self / Same As Patient Allergies atorvastatin Allergy (Severe, Verified 04/19/24 11:43) cognitive decline Medication List - Last Reconciled 04/19/24 by [facility] allopurinol 200 mg (2 x 100 mg) PO DAILY 90 days amlodipine 5 mg PO DAILY apixaban (Eliquis) 5 mg PO BID ezetimibe 10 mg PO DAILY 90 days flecainide 100 mg PO BID 90 days lisinopril-hydrochlorothiazide 20-12.5 mg 2 tabs PO DAILY metoprolol succinate ER 25 mg PO DAILY 90 days tamsulosin 0.4 mg PO BEDTIME 30 days trazodone 50 mg PO BEDTIME 90 days HPI Comments Details: Price is a pleasant 68-year-old male patient of Dr. Burrows. He has a past medical history of cardiomyopathy follows with Dr. Luna, hepatomegaly, hemochromatosis follows with Dr. Christianson, gout, hypertension, paroxysmal atrial fibrillation on anticoagulation. He presents to the office today for follow-up of his incomplete bladder emptying and overflow incontinence. Of note, patient was seen approximately 2 weeks ago due to ultrasound reporting critical postvoid residual during retroperitoneal ultrasound. During last office visit discussion regarding interventions for incomplete bladder emptying/overflow incontinence were discussed at which time he did not want to CIC or insert indwelling baltazar catheter. He was started on flomax. In discussion with the patient today he reports feeling Flomax is working as he has been able to urinate more with bigger volume. However PVR today 945ml's. Discussed again at length CIC versus indwelling Baltazar catheter. However, patient does not wish to undergo these treatment options at this time. Discussed causes and affects of incomplete bladder emptying/urinary retention/overflow incontinence. Recent PSA results reviewed with the patient today as noted and trended below: PSAs: 05/23 2.1, 05/24 3.1, 11/26 5.7, 12/24 5.9, 03/26 5.6 PSA free 14% Discussed at length potential causes and affects of and elevated PSA. PCPT risk calculator results reviewed with the patient today. 61% chance that biopsy is negative for prostate cancer, 28% chance of low-grade prostate cancer, and 11% chance of high-grade prostate cancer. Previous retroperitoneal ultrasound remains pending. When asked he currently denies any bothersome urinary issues or concerns. Patient denies any known family history of prostate cancer however reports his dad had an enlarged prostate and underwent a GreenLight laser of his prostate in his 80s. He does endorse to having ED and utilizes as needed Viagra 50 mg prior to sexual activity and feels this has been extremely helpful. He denies urinary urgency, urinary frequency, incontinence, nocturia, hematuria, dysuria, foul smelling urine, changes to urinary stream, flank pain, fever, and or chills. Discussed correlation of incomplete bladder emptying with elevated PSA. He otherwise offers no other issues or concerns at this time. [facility]MERLY [facility], [facility]1983 Medical History Babesiosis Cardiomyopathy Hepatomegaly Hemochromatosis Gout Broken fibula Anticoagulant long-term use HTN (hypertension) PAF (paroxysmal atrial fibrillation) Surgical History History of removal of skin mole History of laparoscopic cholecystectomy (04/04/23) History of liver biopsy History of esophagogastroduodenoscopy (EGD) Hx of colonoscopy History of right mastoidectomy Family History Father Diabetes Mother Afib Cardiac pacemaker Brother Afib Sister Afib Uterine cancer Social History Household Members: Spouse Housing: House Alcohol intake: current Alcohol intake frequency: a few times a week Alcohol type: beer Patient Tobacco Use Status: Never used Tobacco e-Cigarette/Vaping Use: Never Used Second Hand Smoke Exposure: No service: No Current occupational status: retired Current occupational exposures/hazards: No Cognitive needs: No Hearing needs: No Vision needs: No Review of Systems Const Reports no additional complaints Eyes Reports no additional complaints ENT Reports no additional complaints Card Reports as per HPI Resp Reports no additional complaints GI Reports as per HPI Reports as per HPI Musc Reports no additional complaints Neuro Reports no additional complaints Psych Reports no additional complaints Endo Reports no additional complaints [place]/Lymph Reports as per HPI Aller/Immun Reports no additional complaints Physical Exam Const General: cooperative, healthy appearing, comfortable, no acute distress, well developed, alert and awake Orientation/consciousness: patient oriented x3 Limitations: no limitations HEENT Head: Yes normal to inspection, Yes normocephalic and Yes atraumatic Ears: hearing grossly normal bilaterally Eyes General: appearance normal, both eyes and all related structures Neck Neck: Yes normal visual inspection and Yes trachea midline Chest Chest palpation & inspection: normal inspection of the chest Resp Effort & Inspection: normal respiratory effort and able to speak in complete sentences Cardio Rate: regular rate GI Inspection: Yes normal to inspection General: Yes no CVA tenderness Back/Spine/Pelvis Back: no CVA tenderness Skin General skin exam: no rashes or lesions noted Neuro General: patient oriented x3 Extrem General: Yes normal to inspection Psych Appearance: grossly normal and well kempt Mental Status: mental status grossly normal Speech and movement: Normal speech and movement present and Clear speech present Affect: normal affect Attitude: cooperative Thought process: Normal thought process present Thought content: Normal thought content present Insight: Fair insight present (Psych) Judgement: Fair judgement present (Psych) Assessment & Plan Assessment & Plan (1) Incomplete bladder emptying: Code(s): R33.9 - Retention of urine, unspecified Category: Medical (2) Urinary retention: Code(s): R33.9 - Retention of urine, unspecified Category: Medical (3) Elevated PSA: Code(s): R97.20 - Elevated prostate specific antigen [PSA] Category: Medical Plan In office urinalysis results reviewed with the patient today; as noted above. PVR greater than 945 mL. Discussed at length potential causes for incomplete bladder emptying/urinary retention; discussed further treatment options to include CIC versus indwelling Baltazar; patient declines at this time Discussed risks of incomplete bladder emptying and urinary retention without intervention. Stop Flomax Start terazosin as discussed and prescribed Will await final read of retroperitoneal ultrasound. Discussed potential causes elevated PSA; discussed correlation of incomplete bladder emptying with elevated PSA. Discussed importance of seeking medical treatment or calling office if unable to void. Follow-up in 1-2 months with PVR; or sooner with any issues, concerns, and or questions. Orders: Orders AMB Urinalysis Automated 04/19/24 Z13.9 - Encounter for screening, unspecified AMB Post Void Residual by ultrasound 04/19/24 R33.9 - Retention of urine, unspecified Medications: New terazosin 5 mg PO BEDTIME 30 days 30 caps 1RF N40.1 - Benign prostatic hyperplasia with lower urinary tract symptoms, R35.0 - Frequency of micturition Discontinued tamsulosin Discontinued Reason: Doctor's Order 0.4 mg PO BEDTIME 30 days 30 caps 3RF N40.1 - Benign prostatic hyperplasia with lower urinary tract symptoms, R35.1 - Nocturia Patient Instructions: The patient had an opportunity to ask questions regarding the treatment plan. All questions were answered. Physical exam, labs, and imaging were discussed and reviewed in detail. As well as risks, benefits, and discussion of treatment choices. No major barriers to understanding were identified. The patient expressed understanding and agreement with the above treatment plan. The patient was made aware they should contact our office by phone for worsening of their current condition, the appearance of new symptoms, or with any questions or concerns. Compliance is encouraged with any medications and follow up testing that is ordered. It is a privilege to be allowed the opportunity to participate in? your urological care.? Again, if you have any questions or concerns If you have any questions or concerns please do not hesitate to contact me. The office is [phone]. This note is constructed using voice recognition software. While every effort has been made to ensure accuracy corporate travel coordinator errors may have been included. Yours sincerely, NELDA Pina Coding Level of Care Code Est Pt Level 4 (21673) Diagnoses Incomplete bladder emptying R33.9 Urinary retention R33.9 Elevated PSA R97.20
== END 2024-04-19 10:25 | disposition home or self-care (01) ==
PROVIDERS: PCP Family Medicine; Visit Provider Nurse Practitioner Family
DX: R33.9 Retention of urine, unspecified (principal); R97.20 Elevated prostate specific antigen [PSA]
CPT/HCPCS: 99214

== ENCOUNTER → 2024-04-19 09:32 | Outpatient (BNVA) | payer MEDICARE, SELFPAY | PROVIDERS: PCP Family Medicine; Visit Provider Nurse Practitioner Family | DX: R33.9 Retention of urine, unspecified (principal); R97.20 Elevated prostate specific antigen [PSA] | CPT/HCPCS: 99212 ==

== ENCOUNTER 2024-05-14 10:05 | Outpatient (AMB) | payer MEDICARE, SELFPAY ==
[2024-05-14 10:11] VITALS: BP 110/60; PULSE 64; BMI 29.8
--- NOTE | 2024-05-14 10:11 | MHC.OFFVIS ---
Vital Signs 05/14/24 10:11 Height 6 ft Weight 220 lb 0.341 oz BMI 29.8 BP 110/60 Blood Pressure Location Lt brachial Position Sitting Pulse 64 Pulse Source Monitor Intake Visit Reasons: 3m follow up/echo Intake Note: 3 mth f/up-echo Peanut Blancher Required: No Accompanied by: Self / Same As Patient Allergies atorvastatin Allergy (Severe, Verified 04/19/24 11:43) cognitive decline Medication List - Last Reconciled 05/14/24 by Gonzalo Luna MD allopurinol 200 mg (2 x 100 mg) PO DAILY 90 days amlodipine 5 mg PO DAILY apixaban (Eliquis) 5 mg PO BID ezetimibe 10 mg PO DAILY 90 days flecainide 100 mg PO BID 90 days lisinopril-hydrochlorothiazide 20-12.5 mg 2 tabs PO DAILY metoprolol succinate ER 25 mg PO DAILY 90 days terazosin 5 mg PO BEDTIME 30 days trazodone 50 mg PO BEDTIME 90 days HPI Comments Details: Pleasant 68-year-old gentleman here for follow-up. He has background history of paroxysmal atrial fibrillation. He has been on apixaban and flecainide. Clinically doing well and has no significant palpitations at this stage. No chest pain or shortness breath. He was complaining of right upper quadrant pain and was referred for ultrasound. This showed hepatosplenomegaly and he was referred to GI. His workup has shown concern for iron deposits in the liver but he is heterozygous for hemochromatosis. His brother has been diagnosed with hemochromatosis and is actually undergoing bloodletting. He continues to do well and has no chest discomfort or shortness of breath and is not experiencing any physical limitations but his echocardiogram performed in September is showing that his ejection fraction is 48%. This is lower than before. Given the concern for iron deposition and heterozygous hemochromatosis with question is that is there iron infiltration of myocardium also. Tolerating meds otherwise. Cardiac MRI was done which showed dilated left ventricle with mild global hypokinesis LVEF 48%. This small focal near transmural delayed enhancement in the distal inferior wall as well as small size near transmural delayed enhancement at the mid inferior septum and possibly at the basal anterior septum. Suspect fibrosis, dilated cardiomyopathy, elevated right heart pressures, less likely small infarct. The sequence for assessing iron deposits in the myocardium was incorrectly done on this exam. Continues to be asymptomatic and physically active. 02/15/2024: He returns for follow-up. He had MRI to look for hemochromatosis and no evidence of hemochromatosis were noticed. 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 He has received antibiotics for that. He also has an elevated PSA and is seeing Urology. He is asking about ablation as his friends have done that before with good success. Denying any palpitations otherwise and no symptoms as before. 05/14/24: He is here for f/u. He had repeat echo 03/13/24 which showed EF 50-55 %. basal inf hypokinesis and mild RV dilation. Severe RA dilation. He has been experiencing urinary issues due to BPH and was given flomax which he could not tolerate and was given Terazosin. He also tried Farxiga but became dizzy and he stopped taking it. He has no CP but has been feeling fatigued. He will be seeing Dr Chaves for ablation. [facility] Medical History Babesiosis Cardiomyopathy Hepatomegaly Hemochromatosis Gout Broken fibula Anticoagulant long-term use HTN (hypertension) PAF (paroxysmal atrial fibrillation) Surgical History History of removal of skin mole History of laparoscopic cholecystectomy (04/04/23) History of liver biopsy History of esophagogastroduodenoscopy (EGD) Hx of colonoscopy History of right mastoidectomy Family History Father Diabetes Mother Afib Cardiac pacemaker Brother Afib Sister Afib Uterine cancer Social History Household Members: Spouse Housing: House Alcohol intake: current Alcohol intake frequency: a few times a week Alcohol type: beer Patient Tobacco Use Status: Never used Tobacco e-Cigarette/Vaping Use: Never Used Second Hand Smoke Exposure: No service: No Current occupational status: retired Current occupational exposures/hazards: No Cognitive needs: No Hearing needs: No Vision needs: No Review of Systems Const Denies chills, Denies fatigue, Denies fever(s), Denies frequent falls, Denies weakness, Denies weight gain and Denies weight loss ENT Denies dizziness Card Denies chest pain, Denies leg edema, Denies lightheadedness, Denies palpitations, Denies dyspnea and Denies dyspnea on exertion Resp Denies cough, Denies dyspnea and Denies dyspnea on exertion GI Denies hematochezia Musc Denies abnormal gait, Denies muscle weakness, Denies numbness, Denies radiating pain into limb and Denies tingling Neuro Denies abnormal gait, Denies dizziness, Denies frequent falls, Denies numbness, Denies tingling and Denies weakness Endo Denies fatigue and Denies palpitations Physical Exam Vital Signs: Last Vital Signs Pulse 64 05/14/24 10:11 BP 110/60 05/14/24 10:11 BMI result Body Mass Index 29.8 GENERAL APPEARANCE: in no acute distress, pleasant. NECK: no carotid bruit, no jugular venous distention. SKIN: no suspicious lesions, warm and dry. HEART: no murmurs, regular rate and rhythm. LUNGS: clear to auscultation bilaterally. ABDOMEN: soft, nontender. EXTREMITIES: no edema. PERIPHERAL PULSES: equal. NEUROLOGIC: No gross deficits, AAO X 3 Office Procedures EKG Details: Sinus rhythm 64 beats per minute, first-degree AV block with ND interval 254 milliseconds, rightward axis, QTC 453 milliseconds. [id number], Complete Assessment & Plan Assessment & Plan (1) Cardiomyopathy: Code(s): I42.9 - Cardiomyopathy, unspecified Category: Medical (2) PAF (paroxysmal atrial fibrillation): Code(s): I48.0 - Paroxysmal atrial fibrillation Category: Medical Plan 68 male with NICM. EF has imoroved to 50-55%. BP good. Stopped amlodipine. He will continue rest of medications. If dizziness improved then would add back Farxiga. He will be seeing EP and hopefully will get ablation and get off felcainide. f/u in few months. Coding Level of Care Code Est Pt Level 4 (59670) Diagnoses Cardiomyopathy I42.9 PAF (paroxysmal atrial fibrillation) I48.0 CPT Codes EKG - CPT: 98751-[id number], Complete ([id number])
== END 2024-05-14 10:49 | disposition home or self-care (01) ==
PROVIDERS: PCP Family Medicine; Visit Provider Internal Medicine Cardiovascular Disease
DX: I42.9 Cardiomyopathy, unspecified (principal); I48.0 Paroxysmal atrial fibrillation
CPT/HCPCS: 93010; 99214

== ENCOUNTER → 2024-05-14 10:05 | Outpatient (BNVA) | payer MEDICARE, SELFPAY | PROVIDERS: PCP Family Medicine; Visit Provider Internal Medicine Cardiovascular Disease | DX: I48.0 Paroxysmal atrial fibrillation (principal); I42.9 Cardiomyopathy, unspecified | CPT/HCPCS: 93005; 99212 ==

== ENCOUNTER 2024-05-18 08:47 | Outpatient (REF) | payer MEDICARE, SELFPAY ==
--- NOTE | ~2024-05-18 | US_ITS ---
EXAMINATION: US ABDOMEN LIMITED CLINICAL INFORMATION: Hepatomegaly, not elsewhere classified. COMPARISON: Previous dated 02/04/2023. TECHNIQUE: Real-time imaging of the right upper quadrant abdominal viscera. FINDINGS: Not adequately seen. No free fluid in the region of the pancreas. Pancreatic body is within normal limits. The head and distal body and tail are not adequately seen. Liver is felt to be enlarged. It measures 20 cm. Overall, the echogenicity is felt to be increased. The ceiling installer raises the question of dilated intrahepatic ducts. No lesion is seen here. The patient is status post cholecystectomy. The common duct is measuring 6 mm. The right kidney is measuring 12.4 cm. No hydronephrosis or stone is seen. US/US abdomen limited IMPRESSION: Liver is prominent in size at 20 cm and overall increased echogenicity, which may be consistent with fatty change. The ceiling installer raises the question of dilated intrahepatic ducts. Common duct is 6 mm. The patient is status post cholecystectomy. Poor visualization in the region of the pancreatic head. If further evaluation is warranted recommend CT or MR. Electronically signed by: Junior Mendoza MD 06/14/2024 12:04 PM EDT
== END 2024-05-18 08:48 | disposition home or self-care (01) ==
LOC: HO.US 08:47
PROVIDERS: PCP Family Medicine; Visit Provider Internal Medicine
DX: R16.0 Hepatomegaly, not elsewhere classified (principal)
CPT/HCPCS: 76705

== ENCOUNTER 2024-06-05 11:11 | Outpatient (REF) | payer MEDICARE, SELFPAY ==
[2024-06-05 14:30] LABS: Appearance Urine Turbid; Color Urine Yellow; Glucose Urine UA Negative (Negative); Leukocyte Esterase Urine Large (3+) (Negative); Nitrite Urine Negative (Negative); UMIC TRIGGER UA YES; Urine Blood Moderate (2+) (Negative); Urine Ketones Negative (Negative); Urine Protein 30 (1+) mg/dL (Neg-Trace)
[2024-06-05 14:33] LABS: Bacteria Urine 4+ (None Seen); Hyaline Casts Urine 0-2 /LPF (0-2); Squamous Epithelial Cell Urine 0-2 /HPF (0-2); WBC Urine >50 /HPF (0-5)
== END 2024-06-05 11:12 | disposition home or self-care (01) ==
LOC: HO.WFDLDS 11:11
PROVIDERS: Visit Provider Nurse Practitioner Family
DX: R33.9 Retention of urine, unspecified (principal)
CPT/HCPCS: 81001; 87086

== ENCOUNTER 2024-06-18 08:15 | Outpatient (REF) | payer MEDICARE, SELFPAY | END 2024-06-18 08:16 | disposition home or self-care (01) | LOC: HO.BBR 08:15 | PROVIDERS: PCP Family Medicine; Visit Provider Internal Medicine | DX: Z13.89 Encounter for screening for other disorder (principal) ==

== ENCOUNTER 2024-06-19 11:20 | Outpatient (AMB) | payer MEDICARE, SELFPAY ==
--- NOTE | 2024-06-19 11:21 | A.OFFVIS_ITS ---
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: No Accompanied by: Self / Same As Patient Allergies atorvastatin Allergy (Severe, Verified 06/19/24 21:18) cognitive decline Medication List - Last Reconciled 06/19/24 by JADON Pina- allopurinol 200 mg (2 x 100 mg) PO DAILY 90 days amlodipine 5 mg PO DAILY apixaban (Eliquis) 5 mg PO BID ezetimibe 10 mg PO DAILY 90 days flecainide 100 mg PO BID 90 days lisinopril-hydrochlorothiazide 20-12.5 mg 2 tabs PO DAILY metoprolol succinate ER 25 mg PO DAILY 90 days terazosin 5 mg PO BEDTIME 30 days trazodone 50 mg PO BEDTIME 90 days HPI Comments Details: Price is a pleasant 68-year-old male patient of Dr. Burrows. He has a past medical history of cardiomyopathy follows with Dr. Luna, hepatomegaly, hemochromatosis follows with Dr. Christianson, gout, hypertension, paroxysmal atrial fibrillation on anticoagulation. He presents to the office today for follow-up of his incomplete bladder emptying, overflow incontinence and elevated PSA. Of note, patient was seen approximately 2 months ago at which time Flomax was discontinued and the patient was started on 5 mg of terazosin for incomplete bladder emptying and overflow incontinence. We have discussed at length causes and affects of incomplete bladder emptying, overflow incontinence, and elevated PSA. He discusses upcoming appointment with Dr. Chaves for an ablation. We discussed educating provider as well as anesthesia of patient's urological issues and concerns. We discussed further treatment options to include prostate biopsy verses MRI of the prostate for elevated PSA as well as further treatment options for incomplete bladder emptying to include CIC. However, patient continues to decline all treatment options at this time although we discussed potential for significant consequences in delays and treatment. He reports feeling no bothersome urinary issues or concerns. In office urinalysis results reviewed with the patient today. PVR 940 mLs. We discussed trial of bethanechol given patient continues to decline CIC and or indwelling Sutton. PSAs are as follows PSAs: 05/23 2.1, 05/24 3.1, 11/26 5.7, 12/24 5.9, 03/26 5.6 PSA free 14% Discussed at length potential causes and affects of and elevated PSA. PCPT risk calculator results reviewed with the patient today. 61% chance that biopsy is negative for prostate cancer, 28% chance of low-grade prostate cancer, and 11% chance of high-grade prostate cancer. Previous retroperitoneal ultrasound 04/25 bilateral kidneys with no calculi, lesions, and or hydronephrosis. The bladder is distended and normal. Bilateral jets are demonstrated. Pre void bladder volume is approximately 1200 mL. Postvoid bladder volume is approximately a 1000 mL. Prostate measures approximately 70 mL. We also discussed trial of finasteride. Patient discusses his reluctancy to taking medications in discusses this is why he is undergoing further treatment options for his atrial fibrillation because he does not want to continue taking anticoagulation as well as flecainide. He denies urinary urgency, urinary frequency, incontinence, noctu yojana, hematuria, dysuria, foul smelling urine, changes to urinary stream, flank pain, fever, and or chills. Discussed correlation of incomplete bladder emptying with elevated PSA. He otherwise offers no other issues or concerns at this time. [facility]LY [facility] Medical History Babesiosis Cardiomyopathy Hepatomegaly Hemochromatosis Gout Broken fibula Anticoagulant long-term use HTN (hypertension) PAF (paroxysmal atrial fibrillation) Surgical History History of removal of skin mole History of laparoscopic cholecystectomy (04/04/23) History of liver biopsy History of esophagogastroduodenoscopy (EGD) Hx of colonoscopy History of right mastoidectomy Family History Father Diabetes Mother Afib Cardiac pacemaker Brother Afib Sister Afib Uterine cancer Social History Household Members: Spouse Housing: House Alcohol intake: current Alcohol intake frequency: a few times a week Alcohol type: beer Patient Tobacco Use Status: Never used Tobacco e-Cigarette/Vaping Use: Never Used Second Hand Smoke Exposure: No service: No Current occupational status: retired Current occupational exposures/hazards: No Cognitive needs: No Hearing needs: No Vision needs: No Review of Systems Const Reports no additional complaints Eyes Reports no additional complaints ENT Reports no additional complaints Card Reports as per HPI Resp Reports no additional complaints GI Reports as per HPI Reports as per HPI Musc Reports no additional complaints Neuro Reports no additional complaints Psych Reports no additional complaints Endo Reports no additional complaints [place]/Lymph Reports as per HPI Aller/Immun Reports no additional complaints Physical Exam Const General: cooperative, healthy appearing, comfortable, no acute distress, well developed, alert and awake Orientation/consciousness: patient oriented x3 Limitations: no limitations HEENT Head: Yes normal to inspection, Yes normocephalic and Yes atraumatic Ears: hearing grossly normal bilaterally Eyes General: appearance normal, both eyes and all related structures Neck Neck: Yes normal visual inspection and Yes trachea midline Chest Chest palpation & inspection: normal inspection of the chest Resp Effort & Inspection: normal respiratory effort and able to speak in complete sentences Cardio Rate: regular rate GI Inspection: Yes normal to inspection General: Yes no CVA tenderness Back/Spine/Pelvis Back: no CVA tenderness Skin General skin exam: no rashes or lesions noted Neuro General: patient oriented x3 Extrem General: Yes normal to inspection Psych Appearance: grossly normal and well kempt Mental Status: mental status grossly normal Speech and movement: Normal speech and movement present and Clear speech present Affect: normal affect Attitude: cooperative Thought process: Normal thought process present Thought content: Normal thought content present Insight: Fair insight present (Psych) Judgement: Fair judgement present (Psych) Office Procedures Post Void Residual Post Residual Void Post Void Residual (PVR): [id number] [id number] Void Residual by ultrasound Results Reviewed Results Reviewed: Date of Service: 04/02/24 EXAMINATION: US RETROPERITONEAL COMPLETE (RENAL) FINDINGS: RIGHT KIDNEY: 11.7 x 6.6 x 5.7 cm (SAG x AP x TRV). The kidney is normal in size, contour, and echogenicity. Renal cortical thickness is normal. No calculi or focal parenchymal lesions. No hydronephrosis. LEFT KIDNEY: 11.5 x 7.0 x 4.6 cm (SAG x AP x TRV). The kidney is normal in size, contour, and echogenicity. Renal cortical thickness is normal. No calculi or focal parenchymal lesions. No hydronephrosis. BLADDER: Well distended and normal. Bilateral ureteral jets are demonstrated. Prevoid bladder volume is 1165 mL. Postvoid bladder volume is 996 mL. PROSTATE: Large prostate with volume of 69.0 mL. IMPRESSION: 1. Normal appearance of the kidneys. 2. Large post void residual. 3. Enlarged prostate. Assessment & Plan Assessment & Plan (1) Urinary retention: Code(s): R33.9 - Retention of urine, unspecified Category: Medical (2) Incomplete bladder emptying: Code(s): R33.9 - Retention of urine, unspecified Category: Medical (3) Elevated PSA: Code(s): R97.20 - Elevated prostate specific antigen [PSA] Category: Medical Plan In office urinalysis results reviewed with the patient today; as noted above. PVR 940 mL. Continue terazosin; discussed increasing to 10 mg. Discuss trial of finasteride and or bethanechol. We discussed at length potential causes and affects of incomplete bladder emptying, urinary retention, and elevated PSA; we discussed further treatment options of these urological issues as well as consequences of not undergoing further treatment options. Patient continues to decline all further treatment options for elevated PSA and urinary retention. He is happy with his current voiding parameters. Follow-up in 3 months with PVR; or sooner with any issues, concerns, and or questions. Orders: Orders AMB Post Void Residual by ultrasound Today R33.9 - Retention of urine, unspecified Medications: Changed From terazosin 5 mg PO BEDTIME 30 days 30 caps 1RF N40.1 - Benign prostatic hyperplasia with lower urinary tract symptoms, R35.0 - Frequency of micturition To terazosin 10 mg (2 x 5 mg) PO BEDTIME 90 days 180 caps 1RF N40.1 - Benign prostatic hyperplasia with lower urinary tract symptoms, R35.0 - Frequency of micturition Discontinued amlodipine Discontinued Reason: Patient no longer taking 5 mg PO DAILY 90 tabs 2RF Patient Instructions: The patient had an opportunity to ask questions regarding the treatment plan. All questions were answered. Physical exam, labs, and imaging were discussed and reviewed in detail. As well as risks, benefits, and discussion of treatment choices. No major barriers to understanding were identified. The patient expressed understanding and agreement with the above treatment plan. The patient was made aware they should contact our office by phone for worsening of their current condition, the appearance of new symptoms, or with any questions or concerns. Compliance is encouraged with any medications and follow up testing that is ordered. It is a privilege to be allowed the opportunity to participate in? your urological care.? Again, if you have any questions or concerns If you have any questions or concerns please do not hesitate to contact me. The office is [phone]. This note is constructed using voice recognition software. While every effort has been made to ensure accuracy gear cutting machine set up operator errors may have been included. Yours sincerely, NELDA Pina Coding Level of Care Code Est Pt Level 4 (70859) Complex EM visit Add On G2211 Diagnoses Urinary retention R33.9 Incomplete bladder emptying R33.9 Elevated PSA R97.20 CPT Codes Post Residual Void - PVR CPT Code: 46380-[id number] Void Residual by ultrasound ([id number])
== END 2024-06-19 11:53 | disposition home or self-care (01) ==
PROVIDERS: PCP Family Medicine; Visit Provider Nurse Practitioner Family
DX: R33.9 Retention of urine, unspecified (principal); R97.20 Elevated prostate specific antigen [PSA]
CPT/HCPCS: 99214; G2211

== ENCOUNTER 2024-06-19 11:20 | Outpatient (REF) | payer MEDICARE, SELFPAY ==
[2024-06-19 13:07] LABS: Alanine Aminotransferase 17 U/L (0-40); Albumin Level 3.7 g/dL (3.5-5.0); Alkaline Phosphatase 80 U/L (39-117); Aspartate Amino Transferase 15 U/L (5-37); Bilirubin Direct 0.2 mg/dL (0.0-0.5); Bilirubin Total 0.5 mg/dL (0.0-1.0); Gamma Glutamyl Transpeptidase 17 U/L (11-51); Total Protein 6.9 g/dL (6.5-8.0)
== END 2024-06-19 11:21 | disposition home or self-care (01) ==
LOC: HO.LAB 11:20
PROVIDERS: PCP Family Medicine; Referring Provider Internal Medicine; Visit Provider Nurse Practitioner Family
DX: N40.1 Benign prostatic hyperplasia with lower urinary tract symptoms (principal); R39.14 Feeling of incomplete bladder emptying; R35.0 Frequency of micturition; I48.91 Unspecified atrial fibrillation; N39.490 Overflow incontinence; R97.20 Elevated prostate specific antigen [PSA]; K83.8 Other specified diseases of biliary tract; Z79.01 Long term (current) use of anticoagulants
CPT/HCPCS: 36415; 51798; 80076; 82977; 99212

== ENCOUNTER 2024-06-28 10:41 | Outpatient (REF) | payer MEDICARE, SELFPAY ==
[2024-06-28 14:23] LABS: Appearance Urine Turbid; Color Urine Yellow; Glucose Urine UA Negative (Negative); Leukocyte Esterase Urine Large (3+) (Negative); Nitrite Urine Negative (Negative); UMIC TRIGGER UA YES; Urine Blood Moderate (2+) (Negative); Urine Ketones Negative (Negative); Urine Protein 30 (1+) mg/dL (Neg-Trace)
[2024-06-28 14:29] LABS: Bacteria Urine 4+ (None Seen); Hyaline Casts Urine 0-2 /LPF (0-2); Squamous Epithelial Cell Urine 0-2 /HPF (0-2); WBC Urine >50 /HPF (0-5)
== END 2024-06-28 10:42 | disposition home or self-care (01) ==
LOC: HO.WFDLDS 10:41
PROVIDERS: Visit Provider Nurse Practitioner Family
DX: R33.9 Retention of urine, unspecified (principal)
CPT/HCPCS: 81001; 87086

== ENCOUNTER 2024-07-09 09:43 | Outpatient (REF) | payer MEDICARE, SELFPAY ==
--- NOTE | ~2024-07-09 | MR_ITS ---
EXAMINATION: MRCP. CLINICAL INFORMATION: Other specified diseases of biliary tract. COMPARISON: MRI abdomen dated August 19, 2022. Correlated to ultrasound dated November 29, 2023. TECHNIQUE: MRCP protocol and multiplanar, multisequence MRI abdomen without contrast. FINDINGS: The common bile duct measures 5 mm in maximal diameter with a pencil shaped morphology at the junction with second portion of the duodenum. There is an intraluminal isointense T2 signal in the distal common bile duct there is a 9 images #29 axial T2 HASTE. Mild intrahepatic biliary ductal dilatation involving mostly the left hepatic lobe. Status post cholecystectomy. Flow-void signal within the main portal vein and intrahepatic portion of the IVC is normal. No peripancreatic fluid collections. No main pancreatic ductal dilatation. Liver measures 21 cm. Spleen measures 14 cm. Soft tissue fullness adrenal glands. No hydronephrosis in either kidney. No aneurysm or dissection, abdominal aorta. No ascites. No intestinal obstruction pattern. There is a superior endplate compression deformity of T12 representing 20-30% volume loss with subtle T2 fat-sat signal. MR/MR MRCP IMPRESSION: Questionable choledocholithiasis resulting in mild intrahepatic biliary ductal dilatation. Hepatosplenomegaly. Subacute superior endplate compression deformity, T12 vertebra. Electronically signed by: Zheng Irvin MD 08/08/2024 03:02 PM TOÑO
== END 2024-07-09 09:44 | disposition home or self-care (01) ==
LOC: HO.MRI 09:43
PROVIDERS: PCP Family Medicine; Visit Provider Internal Medicine
DX: K83.8 Other specified diseases of biliary tract (principal)
CPT/HCPCS: 74181

== ENCOUNTER → 2024-07-09 09:47 | Outpatient (BNV) | payer MEDICARE, SELFPAY | PROVIDERS: PCP Family Medicine; Visit Provider Radiology Diagnostic Radiology | DX: K83.8 Other specified diseases of biliary tract (principal) | CPT/HCPCS: 74181 ==

== ENCOUNTER 2024-07-16 09:18 | Outpatient (AMB) | payer MEDICARE, SELFPAY ==
--- NOTE | 2024-07-16 09:32 | A.OFFPC_ITS ---
Vital Signs 07/16/24 09:35 Height 6 ft Weight 228 lb BMI 30.9 BP 120/80 Blood Pressure Location Rt brachial Position Sitting Respiration 16 Pulse 70 Pulse Source Pulse Oximeter Temp 97.7 F Temp Source Oral Pulse Oximetry (%) 99 Oxygen Delivery Method Room Air Intake Visit Reasons: f/u hypertension Intake Note: f/u htn Allergies atorvastatin Allergy (Severe, Verified 07/16/24 09:33) cognitive decline Medication List - Last Reconciled 07/16/24 by Ronnie Burrows MD allopurinol 200 mg (2 x 100 mg) PO DAILY 90 days apixaban (Eliquis) 5 mg PO BID ezetimibe 10 mg PO DAILY 90 days flecainide 100 mg PO BID 90 days lisinopril-hydrochlorothiazide 20-12.5 mg 2 tabs PO DAILY metoprolol succinate ER 25 mg PO DAILY 90 days terazosin 10 mg (2 x 5 mg) PO BEDTIME 90 days trazodone 50 mg PO BEDTIME 90 days Tobacco use date assessed: 03/29/24 Dental Screening Dental Screen Date: 05/25/23 HPI f/u hypertension HPI Details 68 y/o male presents to f/u hypertension . Blood pressure today 120/80, 70p. He is on lisinopril-hydrochlorothiazide 20-12.5mg daily, metoprolol 25mg. Notes dizziness had resolved after stopping his amlodipine. FORMERLY [facility], LATER [facility] Medical History Babesiosis Cardiomyopathy Hepatomegaly Hemochromatosis Gout Broken fibula Anticoagulant long-term use HTN (hypertension) PAF (paroxysmal atrial fibrillation) Surgical History History of removal of skin mole History of laparoscopic cholecystectomy (04/04/23) History of liver biopsy History of esophagogastroduodenoscopy (EGD) Hx of colonoscopy History of right mastoidectomy Family History Father Diabetes Mother Afib Cardiac pacemaker Brother Afib Sister Afib Uterine cancer Social History Household Members: Spouse Housing: House Alcohol intake: current Alcohol intake frequency: a few times a week Alcohol type: beer Patient Tobacco Use Status: Never used Tobacco e-Cigarette/Vaping Use: Never Used Second Hand Smoke Exposure: No service: No Current occupational status: retired Current occupational exposures/hazards: No Cognitive needs: No Hearing needs: No Vision needs: No Questionnaire Thrive Questionnaire Date Thrive assessed: 11/22/23 AUDIT C Alcohol Use Questionnaire (AUDIT-C) 2. How many drinks containing alcohol do you have on a typical day when you are drinking?: 1 or 2 3. How often do you have six or more drinks on one occasion?: Never Total Score: 0 LEXA-7 AMB Questionnaire LEXA-7 Date LEXA - 7 assessed: 11/22/23 Source: Developed by Drs. Addy Larson, Nancy Hernández, Star Goldstein and colleagues, with an educational danny from [employer]. Review of Systems Const Denies chills, Denies fatigue, Denies fever(s), Denies headache(s) and Denies weakness ENT Denies dizziness and Denies headache(s) Card Denies dyspnea Resp Denies cough, Denies dyspnea, Denies wheezing and Denies other (shortness of breath) Musc Denies numbness and Denies tingling Neuro Denies dizziness, Denies headache(s), Denies numbness, Denies tingling and Denies weakness Psych Denies anxiety and Denies depression Endo Denies fatigue Aller/Immun Denies wheezing Physical exam (Primary Care) Vital Signs: Last Vital Signs Temp 97.7 F 07/16/24 09:35 Pulse 70 07/16/24 09:35 Resp 16 07/16/24 09:35 BP 120/80 07/16/24 09:35 Pulse Ox 99 07/16/24 09:35 Oxygen Delivery Method Room Air 07/16/24 09:35 BMI result Body Mass Index 30.9 Tobacco/Smoking Status: Tobacco use Status Tobacco use date assessed 03/29/24 07/16/24 09:39 Patient Tobacco Use Status Never used Tobacco 07/16/24 09:39 e-Cigarette/Vaping Use Never Used 07/16/24 09:39 Thrive Assessment: Date of Thrive Assessment Date Thrive assessed 11/22/23 07/16/24 09:39 Const General: well developed; No acute distress Nutritional Appearance: well nourished Orientation/consciousness: patient oriented x3 HENMT Head: Yes normocephalic and Yes atraumatic Eyes General: appearance normal, both eyes and all related structures Pupils: Equal, round and reactive pupils present EOM: EOMs intact bilaterally Resp Effort & Inspection: normal respiratory effort Auscultation: clear to auscultation bilaterally Cardio Rate: regular rate Rhythm: regular rhythm Heart sounds: S1 normal heart sound present, S2 normal heart sound present, no gallops, no murmurs and no rubs Neuro General: patient oriented x3 and gait normal Cranial nerves: Yes Equal, round and reactive pupils present Psych Affect: normal affect Coding Level of Care Code Est Pt Level 4 (11616) Diagnoses HTN (hypertension) I10 PAF (paroxysmal atrial fibrillation) I48.0 Dizziness R42 Bacteria in urine R82.71 Assessment & Plan Assessment & Plan (1) HTN (hypertension): Code(s): I10 - Essential (primary) hypertension Category: Medical Plan: Blood?pressure?is?controlled.??Goal?is?less?than?140/90 Patient?had?stopped?amlodipine?due?to?dizziness?after?starting?terazosin Continue?current?medications (2) PAF (paroxysmal atrial fibrillation): Code(s): I48.0 - Paroxysmal atrial fibrillation Category: Medical Plan: Rhythm?and?rate?controlled?on?flecainide?and?metoprolol Also?on?Eliquis Continue?current?medications Follow-up?with?Cardiology?as?recommended; has?appointment?with?E P?to?evaluate?for?ablation (3) Dizziness: Code(s): R42 - Dizziness and giddiness Category: Medical Plan: This?has?resolved?since?stopping?amlodipine (4) Bacteria in urine: Code(s): R82.71 - Bacteriuria Category: Medical Plan: Now?resolved?with?antibiotic?therapy.
[2024-07-16 09:35] VITALS: BP 120/80; PULSE 70; RESP 16; TEMP 36.5; O2SAT 99; BMI 30.9
== END 2024-07-16 10:20 | disposition home or self-care (01) ==
PROVIDERS: PCP Family Medicine; Visit Provider Family Medicine
DX: I10 Essential (primary) hypertension (principal); I48.0 Paroxysmal atrial fibrillation; R42 Dizziness and giddiness; R82.71 Bacteriuria

== ENCOUNTER → 2024-07-16 09:18 | Outpatient (BNVA) | payer MEDICARE, SELFPAY | PROVIDERS: PCP Family Medicine; Visit Provider Family Medicine | DX: I10 Essential (primary) hypertension (principal); I48.0 Paroxysmal atrial fibrillation; R42 Dizziness and giddiness; R82.71 Bacteriuria | CPT/HCPCS: 99212 ==

== ENCOUNTER 2024-08-29 08:48 | Outpatient (AMB) | payer MEDICARE, SELFPAY ==
--- NOTE | 2024-08-29 08:53 | A.OFFVIS_ITS ---
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 Accompanied by: Self / Same As Patient Allergies atorvastatin Allergy (Severe, Verified 07/16/24 09:33) cognitive decline Medication List - Last Reviewed 08/29/24 by Ambar Curtis CMA allopurinol 200 mg (2 x 100 mg) PO DAILY 90 days apixaban (Eliquis) 5 mg PO BID dapagliflozin propanediol (Farxiga) 5 mg PO DAILY ezetimibe 10 mg PO DAILY 90 days flecainide 100 mg PO BID 90 days lisinopril-hydrochlorothiazide 20-12.5 mg 2 tabs PO DAILY metoprolol succinate ER 25 mg PO DAILY 90 days terazosin 10 mg (2 x 5 mg) PO BEDTIME 90 days trazodone 50 mg PO BEDTIME 90 days HPI Comments Details: Pleasant 68-year-old gentleman here for follow-up. He has background history of paroxysmal atrial fibrillation. He has been on apixaban and flecainide. Clinically doing well and has no significant palpitations at this stage. No chest pain or shortness breath. He was complaining of right upper quadrant pain and was referred for ultrasound. This showed hepatosplenomegaly and he was referred to GI. His workup has shown concern for iron deposits in the liver but he is heterozygous for hemochromatosis. His brother has been diagnosed with hemochromatosis and is actually undergoing bloodletting. He continues to do well and has no chest discomfort or shortness of breath and is not experiencing any physical limitations but his echocardiogram performed in September is showing that his ejection fraction is 48%. This is lower than before. Given the concern for iron deposition and heterozygous hemochromatosis with question is that is there iron infiltration of myocardium also. Tolerating meds otherwise. Cardiac MRI was done which showed dilated left ventricle with mild global hypokinesis LVEF 48%. This small focal near transmural delayed enhancement in the distal inferior wall as well as small size near transmural delayed enhancement at the mid inferior septum and possibly at the basal anterior septum. Suspect fibrosis, dilated cardiomyopathy, elevated right heart pressures, less likely small infarct. The sequence for assessing iron deposits in the myocardium was incorrectly done on this exam. Continues to be asymptomatic and physically active. 02/15/2024: He returns for follow-up. He had MRI to look for hemochromatosis and no evidence of hemochromatosis were noticed. 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 He has received antibiotics for that. He also has an elevated PSA and is seeing Urology. He is asking about ablation as his friends have done that before with good success. Denying any palpitations otherwise and no symptoms as before. 05/14/24: He is here for f/u. He had repeat echo 03/13/24 which showed EF 50-55 %. basal inf hypokinesis and mild RV dilation. Severe RA dilation. He has been experiencing urinary issues due to BPH and was given flomax which he could not tolerate and was given Terazosin. He also tried Farxiga but became dizzy and he stopped taking it. He has no CP but has been feeling fatigued. He will be seeing Dr Chaves for ablation. 08/29/2024: He returns for follow-up. He is undergoing ablation for atrial fibrillation on Tuesday. Has been taking medications regularly. No significant complaints on follow-up. He is taking Farxiga and has been tolerating it well. [facility] Medical History Babesiosis Cardiomyopathy Hepatomegaly Hemochromatosis Gout Broken fibula Anticoagulant long-term use HTN (hypertension) PAF (paroxysmal atrial fibrillation) Surgical History History of removal of skin mole History of laparoscopic cholecystectomy (04/04/23) History of liver biopsy History of esophagogastroduodenoscopy (EGD) Hx of colonoscopy History of right mastoidectomy Family History Father Diabetes Mother Afib Cardiac pacemaker Brother Afib Sister Afib Uterine cancer Social History Household Members: Spouse Housing: House Alcohol intake: current Alcohol intake frequency: a few times a week Alcohol type: beer Patient Tobacco Use Status: Never used Tobacco e-Cigarette/Vaping Use: Never Used Second Hand Smoke Exposure: No service: No Current occupational status: retired Current occupational exposures/hazards: No Cognitive needs: No Hearing needs: No Vision needs: No Review of Systems Const Denies chills, Denies fatigue, Denies fever(s), Denies frequent falls, Denies weakness, Denies weight gain and Denies weight loss ENT Denies dizziness Card Denies chest pain, Denies leg edema, Denies lightheadedness, Denies palpitations, Denies dyspnea and Denies dyspnea on exertion Resp Denies cough, Denies dyspnea and Denies dyspnea on exertion GI Denies hematochezia Musc Denies abnormal gait, Denies muscle weakness, Denies numbness, Denies radiating pain into limb and Denies tingling Neuro Denies abnormal gait, Denies dizziness, Denies frequent falls, Denies numbness, Denies tingling and Denies weakness Endo Denies fatigue and Denies palpitations Physical Exam Vital Signs: Last Vital Signs Pulse 57 08/29/24 08:54 BP 124/62 08/29/24 08:54 BMI result Body Mass Index 30.1 GENERAL APPEARANCE: in no acute distress, pleasant. NECK: no carotid bruit, no jugular venous distention. SKIN: no suspicious lesions, warm and dry. HEART: no murmurs, regular rate and rhythm. Bradycardic. LUNGS: clear to auscultation bilaterally. ABDOMEN: soft, nontender. EXTREMITIES: no edema. PERIPHERAL PULSES: equal. NEUROLOGIC: No gross deficits, AAO X 3 Office Procedures EKG Details: Sinus bradycardia 57 beats per minute, first-degree AV block with [place] interval of 286 milliseconds, nonspecific interventricular conduction delay, QTC 430 milliseconds. [id number], Complete Assessment & Plan Assessment & Plan (1) HTN (hypertension): Code(s): I10 - Essential (primary) hypertension Category: Medical (2) PAF (paroxysmal atrial fibrillation): Code(s): I48.0 - Paroxysmal atrial fibrillation Category: Medical Plan Pleasant 68-year-old gentleman who is here for follow-up. He has background nonischemic cardiomyopathy with EF 50 55%, paroxysmal atrial fibrillation for which she has been on flecainide and apixaban 5 mg twice a day. He is on Toprol-XL 25 mg daily. Clinically has been stable. He is undergoing ablation next week. We will see him back in few months. He will continue same medicines for now. Flecainide probably will be stopped in the next month to 2 and we will get advice from electrophysiology for that. Thank you for allowing me to participate in the care of your patient. Please feel free to contact me if you have any questions. Coding Level of Care Code Est Pt Level 4 (72043) Diagnoses HTN (hypertension) I10 PAF (paroxysmal atrial fibrillation) I48.0 CPT Codes EKG - CPT: 97067-[id number], Complete ([id number])
[2024-08-29 08:54] VITALS: BP 124/62; PULSE 57; BMI 30.1
== END 2024-08-29 09:17 | disposition home or self-care (01) ==
PROVIDERS: PCP Family Medicine; Visit Provider Internal Medicine Cardiovascular Disease
DX: I10 Essential (primary) hypertension (principal); I48.0 Paroxysmal atrial fibrillation
CPT/HCPCS: 93010; 99214

== ENCOUNTER → 2024-08-29 08:48 | Outpatient (BNVA) | payer MEDICARE, SELFPAY | PROVIDERS: PCP Family Medicine; Visit Provider Internal Medicine Cardiovascular Disease | DX: I48.0 Paroxysmal atrial fibrillation (principal); I10 Essential (primary) hypertension | CPT/HCPCS: 93005; 99212 ==

== ENCOUNTER 2024-09-18 10:35 | Outpatient (AMB) | payer MEDICARE, SELFPAY ==
--- NOTE | 2024-09-18 10:37 | A.OFFVIS_ITS ---
Intake Visit Reasons: 3m/PVR Intake Note: Patient presents today for follow up visit on: incomplete bladder emptying Urology Medications: Terazosin Blood Thinner: Eliquis * Last PVR: 940ml's * PVR: 597ml's Tack Puller Machine Required: No Accompanied by: Self / Same As Patient Allergies atorvastatin Allergy (Severe, Verified 09/18/24 10:51) cognitive decline HPI Comments Details: Price is a pleasant 68-year-old male patient of Dr. Burrows. He has a past medical history of cardiomyopathy follows with Dr. Luna, hepatomegaly, hemochromatosis follows with Dr. Christianson, gout, hypertension, paroxysmal atrial fibrillation on anticoagulation. He presents to the office today for follow-up of his incomplete bladder emptying, overflow incontinence and elevated PSA. In discussion with the patient today he reports recently undergoing cardiac ablation [address] Chaves and has been doing well. He reports upon increase of terazosin he started experiencing dizziness therefore he remains on 5 mg of terazosin daily. In office urinalysis results reviewed with the patient today PVR remains elevated however significantly decreased from last office v isit. PVR 06/26 940 mL. Today PVR 597ml's. We have discussed at length causes and affects of incomplete bladder emptying, overflow incontinence, and elevated PSA. He discusses upcoming appointment with Gastroenterology at [facility] for bile duct blockage. We discussed further treatment options to include prostate biopsy verses MRI of the prostate for elevated PSA as well as further treatment options for incomplete bladder emptying to include CIC. However, patient continues to decline all treatment options at this time although we discussed potential for significant consequences in delays and treatment. He reports feeling no bothersome urinary issues or concerns. We discussed trial of bethanechol given patient continues to decline CIC and or indwelling [place]. PSAs are as follows PSAs: 05/23 2.1, 05/24 3.1, 11/26 5.7, 12/24 5.9, 03/26 5.6 PSA free 14% Discussed at length potential causes and affects of and elevated PSA. PCPT risk calculator results note 61% chance that biopsy is negative for prostate cancer, 28% chance of low-grade prostate cancer, and 11% chance of high-grade prostate cancer. Previous retroperitoneal ultrasound 04/25 bilateral kidneys with no calculi, lesions, and or hydronephrosis. The bladder is distended and normal. Bilateral jets are demonstrated. Pre void bladder volume is approximately 1200 mL. Postvoid bladder volume is approximately a 1000 mL. Prostate measures approximately 70 mL. We also discussed trial of finasteride. He denies urinary urgency, urinary frequency, incontinence, nocturia, hematuria, dysuria, foul smelling urine, changes to urinary stream, flank pain, fever, and or chills. Discussed correlation of incomplete bladder emptying with elevated PSA. He otherwise offers no other issues or concerns at this time. [facility] Medical History Babesiosis Cardiomyopathy Hepatomegaly Hemochromatosis Gout Broken fibula Anticoagulant long-term use HTN (hypertension) PAF (paroxysmal atrial fibrillation) Surgical History History of removal of skin mole History of laparoscopic cholecystectomy (04/04/23) History of liver biopsy History of esophagogastroduodenoscopy (EGD) Hx of colonoscopy History of right mastoidectomy Family History Father Diabetes Mother Afib Cardiac pacemaker Brother Afib Sister Afib Uterine cancer Social History Household Members: Spouse Housing: House Alcohol intake: current Alcohol intake frequency: a few times a week Alcohol type: beer Patient Tobacco Use Status: Never used Tobacco e-Cigarette/Vaping Use: Never Used Second Hand Smoke Exposure: No service: No Current occupational status: retired Current occupational exposures/hazards: No Cognitive needs: No Hearing needs: No Vision needs: No Review of Systems Const Reports no additional complaints Eyes Reports no additional complaints ENT Reports no additional complaints Card Reports as per HPI Resp Reports no additional complaints GI Reports as per HPI Reports as per HPI Musc Reports no additional complaints Neuro Reports no additional complaints Psych Reports no additional complaints Endo Reports no additional complaints [place]/Lymph Reports as per HPI Aller/Immun Reports no additional complaints Physical Exam Const General: cooperative, healthy appearing, comfortable, no acute distress, well developed, alert and awake Orientation/consciousness: patient oriented x3 Limitations: no limitations HEENT Head: Yes normal to inspection, Yes normocephalic and Yes atraumatic Ears: hearing grossly normal bilaterally Eyes General: appearance normal, both eyes and all related structures Neck Neck: Yes normal visual inspection and Yes trachea midline Chest Chest palpation & inspection: normal inspection of the chest Resp Effort & Inspection: normal respiratory effort and able to speak in complete sentences Cardio Rate: regular rate GI Inspection: Yes normal to inspection General: Yes no CVA tenderness Back/Spine/Pelvis Back: no CVA tenderness Skin General skin exam: no rashes or lesions noted Neuro General: patient oriented x3 Extrem General: Yes normal to inspection Psych Appearance: grossly normal and well kempt Mental Status: mental status grossly normal Speech and movement: Normal speech and movement present and Clear speech present Affect: normal affect Attitude: cooperative Thought process: Normal thought process present Thought content: Normal thought content present Insight: Fair insight present (Psych) Judgement: Fair judgement present (Psych) Office Procedures Post Void Residual Post Residual Void Post Void Residual (PVR): 597 [id number] Void Residual by ultrasound Results AMB Urinalysis, Automated UA Leukoctes 0 Fabien/uL Last Edit by [employer] on 09/18/24 10:54 UA Nitrite Last Edit by [employer] on 09/18/24 10:54 UA Urobilinogen 0.2 mg/dL Last Edit by [employer] on 09/18/24 10:54 UA Protein 0 mg/dL Last Edit by [employer] on 09/18/24 10:54 UA pH 6.0 Last Edit by [employer] on 09/18/24 10:54 UA Blood 0 Cristi/uL Last Edit by [employer] on 09/18/24 10:54 UA Specific [place] 1.025 Last Edit by [employer] on 09/18/24 10:54 UA Ketone Last Edit by [employer] on 09/18/24 10:54 UA Bilirubin 0 mg/dL Last Edit by [employer] on 09/18/24 10:54 UA Glucose 0 mg/dL Last Edit by Andrew Ren on 09/18/24 10:54 Results Reviewed Results Reviewed: Laboratory Last Values Urine pH (Auto) 6.0 09/18/24 10:52 Specific [place] (Auto) 1.025 09/18/24 10:52 Urine Protein (Auto) 0 mg/dL 09/18/24 10:52 Glucose (UA)(Auto) 0 mg/dL 09/18/24 10:52 Urine Blood (Auto) 0 Cristi/uL 09/18/24 10:52 Urine Bilirubin (Auto) 0 mg/dL 09/18/24 10:52 Urine Urobilinogen (Auto) 0.2 mg/dL 09/18/24 10:52 Leukocyte Esterase (Auto) 0 Fabien/uL 09/18/24 10:52 Assessment & Plan Assessment & Plan (1) Urinary retention: Code(s): R33.9 - Retention of urine, unspecified Category: Medical (2) Incomplete bladder emptying: Code(s): R33.9 - Retention of urine, unspecified Category: Medical (3) Elevated PSA: Code(s): R97.20 - Elevated prostate specific antigen [PSA] Category: Medical Plan In office urinalysis results reviewed with the patient today; as noted above. PVR 597 mL. Continue terazosin as discussed and prescribed Start finasteride as discussed and prescribed. We discussed at length potential causes and affects of incomplete bladder emptying, urinary retention, and elevated PSA; we discussed further treatment options of these urological issues as well as consequences of not undergoing further treatment options. Patient continues to decline all further treatment options for elevated PSA and urinary retention. He is happy with his current voiding parameters. Follow-up in 4 months with PVR and PSA; or sooner with any issues, concerns, and or questions. Orders: Orders AMB Post Void Residual by ultrasound Today R33.9 - Retention of urine, unspecified AMB Urinalysis Automated Today Z13.9 - Encounter for screening, unspecified PSA,Total (Free>4and<10) 4 Months R97.20 - Elevated prostate specific antigen [PSA] Medications: New finasteride 5 mg PO DAILY 90 days 90 tabs 1RF N13.8 - Other obstructive and reflux uropathy, N40.1 - Benign prostatic hyperplasia with lower urinary tract symptoms, R33.9 - Retention of urine, unspecified Changed From terazosin 10 mg (2 x 5 mg) PO BEDTIME 90 days 180 caps 1RF N40.1 - Benign prostatic hyperplasia with lower urinary tract symptoms, R35.0 - Frequency of micturition To terazosin 5 mg PO BEDTIME 90 days 90 caps 1RF N40.1 - Benign prostatic hyperplasia with lower urinary tract symptoms, R35.0 - Frequency of micturition Patient Instructions: The patient had an opportunity to ask questions regarding the treatment plan. All questions were answered. Physical exam, labs, and imaging were discussed and reviewed in detail. As well as risks, benefits, and discussion of treatment choices. No major barriers to understanding were identified. The patient expressed understanding and agreement with the above treatment plan. The patient was made aware they should contact our office by phone for worsening of their current condition, the appearance of new symptoms, or with any questions or concerns. Compliance is encouraged with any medications and follow up testing that is ordered. It is a privilege to be allowed the opportunity to participate in? your urological care.? Again, if you have any questions or concerns If you have any questions or concerns please do not hesitate to contact me. The office is [phone]. This note is constructed using voice recognition software. While every effort has been made to ensure accuracy white mixing operator errors may have been included. Yours sincerely, NELDA Pina Coding Level of Care Code Est Pt Level 4 (66466) Complex EM visit Add On G2211 Diagnoses Urinary retention R33.9 Incomplete bladder emptying R33.9 Elevated PSA R97.20 CPT Codes Post Residual Void - PVR CPT Code: 64180-Vlhf Void Residual by ultrasound ([id number])
--- OUTSIDE RECORDS SUMMARY | 2024-09-18 10:44 | XMS_ITS | Continuity of Care Document ---
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 Name Role Phone Ronnie Burrows MD Primary Care Physician [phone] Encounter [facility] Date(s): 09/03/24 - 09/03/[address] [address]- Discharge Disposition: A-D/C Home Attending Physician: Soy Chaves MD Admitting Physician: Soy Chaves MD Referring Physician: Soy Chaves MD Encounter Type: Disch Daystay Allergies, Adverse Reactions, Alerts Substance Criticality Severity Reaction Reaction Severity Status statins Active Immunizations Given and Recorded Vaccine Date Status Refusal Reason tetanus/diphtheria/pertussis, acel(Tdap) 01/20/23 Given Medications allopurinol 100 mg oral tablet 100 mg, 1, tablet, By Mouth, 2 times a day, # 60 tablet, Refills 0, Maintenance, 07/26/24 10:01:00 AM EDT, Partial fill upon patient request if the prescription is for a schedule II opioid drug. Start Date: 07/26/24 Status: Ordered Quantity: 60.0 Unit: tablet Repeat number: 1 apixaban 5 mg oral tablet 1 tablet = 5 mg, By Mouth, 2 times a day, # 60 tablet, 0 Refills, Maintenance, 06/16/23 9:24:00 AM EDT, Tablet, Partial fill upon patient request if the prescription is for a schedule II opioid drug. Start Date: 06/16/23 Status: Ordered Quantity: 60.0 Unit: tablet Repeat number: 1 Farxiga 5 mg oral tablet 1 tablet = 5 mg, By Mouth, Daily, # 30 tablet, 0 Refills, Maintenance, 07/26/24 10:01:00 AM EDT, Tablet, Partial fill upon patient request if the prescription is for a schedule II opioid drug. Start Date: 07/26/24 Status: Ordered Quantity: 30.0 Unit: tablet Repeat number: 1 flecainide 100 mg oral tablet 100 mg, 1, tablet, By Mouth, Every 12 hours, # 60 tablet, Refills 3, Tot. Refills 3, Maintenance, 07/07/20 10:51:00 AM EDT, Route to Pharmacy Electronically, [id number] Start Date: 07/07/20 Status: Ordered Quantity: 60.0 Unit: tablet Repeat number: 4 hydrochlorothiazide-lisinopril 12.5 mg-20 mg oral tablet 2 tablet, By Mouth, 2 times a day, # 60 tablet, 0 Refills, Maintenance, 06/16/23 9:23:00 AM EDT, Tablet, Partial fill upon patient request if the prescription is for a schedule II opioid drug. Start Date: 06/16/23 Status: Ordered Quantity: 60.0 Unit: tablet Repeat number: 1 metoprolol 25 mg oral tablet, extended release 25 mg, 1, tablet, By Mouth, Daily, # 30 tablet, Refills 0, Maintenance, 06/16/23 9:24:00 AM EDT, Partial fill upon patient request if the prescription is for a schedule II opioid drug. Start Date: 06/16/23 Status: Ordered Quantity: 30.0 Unit: tablet Repeat number: 1 terazosin 5 mg oral capsule 5 mg, 1, capsule, By Mouth, Daily at bedtime, # 30 capsule, Refills 0, Maintenance, 07/26/24 10:01:00 AM EDT, Partial fill upon patient request if the prescription is for a schedule II opioid drug. Start Date: 07/26/24 Status: Ordered Quantity: 30.0 Unit: capsule Repeat number: 1 traZODone 50 mg oral tablet 50 mg, 1, tablet, By Mouth, Daily at bedtime, # 15 tablet, Refills 0, Maintenance, 06/16/23 9:23:00 AM EDT, Partial fill upon patient request if the prescription is for a schedule II opioid drug. Start Date: 06/16/23 Status: Ordered Quantity: 15.0 Unit: tablet Repeat number: 1 Problem List Condition Confirmation Course Effective Dates Status Health St atus Informant Obese class I Confirmed Active Vital Signs Most recent to oldest [Reference Range]: 1 2 3 Height 182.8 cm (09/03/24 8:19 AM) Weight 101.0 kg (09/03/24 8:19 AM) Oxygen Saturation [94-100 %] 94 % (09/03/24 2:59 PM) 95 % (09/03/24 2:44 PM) 95 % (09/03/24 2:29 PM) Body Mass Index [18.5-24.99 kg/m2] 30.23 kg/m2 *>HHI* (09/03/24 8:19 AM) Blood Pressure [90-138/55-84 mm Hg] 119/73mm Hg (09/03/24 2:45 PM) 114/74mm Hg (09/03/24 2:30 PM) 120/69mm Hg (09/03/24 2:15 PM) Respiratory Rate [16-30 br/min] 12 br/min *L* (09/03/24 2:59 PM) 16 br/min (09/03/24 2:44 PM) 11 br/min *L* (09/03/24 2:29 PM) Temperature [96.8-100.4 DegF] 97.5 DegF (09/03/24 5:30 PM) 97.8 DegF (09/03/24 12:45 PM) 97.6 DegF (09/03/24 8:19 AM) Mode of Delivery (Oxygen) Room air (09/03/24 2:45 PM) Room air (09/03/24 2:30 PM) Room air (09/03/24 2:15 PM) Blood pressure sites Arm, right (09/03/24 2:45 PM) Arm, right (09/03/24 2:30 PM) Arm, right (09/03/24 2:15 PM) Temperature Route Temporal (09/03/24 5:30 PM) Temporal (09/03/24 12:45 PM) Temporal (09/03/24 8:19 AM) Dry Weight 101.0 kg (09/03/24 8:19 AM) Weight Obtained Via Standing scale (09/03/24 8:19 AM) Dry Weight Obtained Via Standing scale (09/03/24 8:19 AM) Social History Social History Type Response Smoking Status Never (less than 100 in lifetime) entered on: 4/20/23 Sex Sex Representation Male (finding) Note * Event Display: Hemodynamic Procedure Report Authored Date: * Event Display: Hemodynamic Procedure Report Authored Date: * Cheyenne Horne RN: PERFORM Event Display: Discharge/Transfer Note Hospital Authored Date: [id number] Nursing Discharge Note Entered On: 09/03/2024 17:39 EST Performed On: 09/03/2024 17:39 EST by Cheyenne Horne RN Nursing Discharge Note 2 Discharge Time : 09/03/2024 17:39 EST Discharge Level of Care at Discharge : Home/Assisted/Foster Care Patient Left Unit Via : Wheelchair Patient Accompanied Off Unit with : Responsible adult DC Instructions Provided & Signed by Pt : Yes Patient Understands D/C Instructions : Yes Patient Instructions Discharge Signed : Yes Discharge Comments : R and L groin sites stable Did Pt have Specialty Bed or Wound Vac : No Cheyenne Horne RN - 09/03/2024 17:38 EST * Cheyenne Horne RN: PERFORM Event Display: Patient Education/Instruction Authored Date: [id number] Inpatient Adult Discharge Instructions. [place] [id number] Name: DENNIS JUAREZ : 1955?? Visit: 09/03/2024 07:24?? Current Date: 09/03/2024 16:38 ?? Account: [id number]?? Inpatient Adult Discharge Instructions We would like to thank you for allowing us to assist you with your healthcare needs. The following includes patient education materials and information regarding your injury/illness. Our entire staffstrives to provide an excellent experience for our patients and their families. PLEASE ENSURE YOU FOLLOW-UP PER THE INSTRUCTIONS BELOW! ?? YOUR OPINION IS IMPORTANT TO US! Please complete the survey you may receive by mail or email. Your feedback will be used to make improvements to the healthcare experiences of our patients and their families. Surveys are administered by [employer] ?? If further treatment with your primary care physician or another doctor is recommended, it is important for you to keep the appointment. Call your primary care physician or return to the Emergency Department immediately if your condition worsens, fails to improve, or new symptoms develop. If you need to find a doctor, you can call [facility] Link for a referral at [phone] or toll free at [phone]) or log in to [email or web address].. ?? [facility], in keeping with [facility] guidance, no longer requires face masks for staff, patientsor visitors in most situations. Similiar to time spent indoors at other locations, there is the chance that you were exposed to repiratory viruses during your time with us (such as flu or COVID-19). If you develop symptoms concerning for a viral respiratory infection, please seek testing (and treatment if indicated) from your medical provider or home test kit. ?? You can view and manage your care through the patient portal or by using a health care mariluz of your choosing. [employer] is a website that allows you to securely view your medical information including your hospital discharge summary, office visit summaries, medications and follow-up visits. You can also request appointments, renew medications, and request access to your medical information using a health care mariluz of your choosing, or just ask a question. You can enroll at [email or web address] or register during your next office visit. You have been discharged from [facility], Patient Care Unit: CARE??. If you have any questions regarding these instructions, including results of studies pending, afteryou leave, please call us and we will be happy to assist you 25/04. [facility] Nursing Unit Direct Phone Number, for 25/04 contact and results of studies pending CARE [address] [place] [address] Your Care Team Attending Physician Soy Chaves MD?? Consulting Providers Soy Chaves MD?? Discharging Providers Soy Chaves MD Tests Performed Below is a partial list of the tests performed during your hospitalization. You may have had other tests and procedures not included in this list. Please discuss all test results with your provider. POC Hemochron ACT-LR Type and Screen POC ACT-LR (POC Hemochron ACT-LR)?? Type and Screen?? Primary Care Provider Ronnie Burrows MD? Advance Directive Health Care Proxy on File No Discharge Vitals Temperature: 97.8 DegF Height: 182.8 cm Respiratory Rate:??12 br/min??Low Weight: 101 kg Systolic Blood Pressure: 119 mm Hg Body Mass Index:??30.23 kg/m2??Critical Diastolic Blood Pressure: 73 mm Hg Body surface area: 2.26 Oxygen Saturation: 94 % ?? Studies Pending All studies ordered during this hospital stay have been completed unless listed below. Please discuss all pending results with your provider listed above in these instructions. ?? No incomplete studies found?? What to do next Instructions From Your Doctor ?? Orders?? discharge after post procedure rest order complete, patient has ambulated and groin incision(s) arestable 30 mins post ambulation, ??09/03/24 13:31:00 EST?? Scheduled Follow-Up Appointments Tuesday 3:15 PM EST ?? With: Giuseppe Forman MD Where: [facility] [address] [place] [address]- Status: Pending You Need to Schedule the Following Appointments Follow Up with??As Needed Discharge Medications ANNDENNIS PAREKH :1955 Visit Date:09/03/2024 Medications: Please continue your medications until treatment is completed or stopped by your provider. Medications not listed below should be discontinued. Discuss any questions related to medications with your provider. What How Much When Instructions Next Dose Unchanged Allopurinol (allopurinol 100 mg oral tablet) 1 tab(s) Oral Twice a day PRESCRIBED Unchanged apixaban (apixaban 5 mg oral tablet) 1 tab(s) Oral Twice a day RESUME TONIGHT 09/03 Unchanged dapagliflozin (Farxiga 5 mg oral tablet) 1 tab(s) Oral Daily PRESCRIBED Unchanged Flecainide (flecainide 100 mg oral tablet) 1 tab(s) Oral Every 12 hours PRESCRIBED Unchanged Hydrochlorothiazide-Lisinopril (hydrochlorothiazide-lisinopril 12.5 mg-20 mg oral tablet) 2 tab(s) Oral Twice a day PRESCRIBED Unchanged Metoprolol (metoprolol 25 mg oral tablet, extended release) 1 tab(s) Oral Daily PRESCRIBED Unchanged Terazosin (terazosin 5 mg oral capsule) 1 capsule Oral Daily at Bedtime PRESCRIBED Unchanged Trazodone (traZODone 50 mg oral tablet) 1 tab(s) Oral Daily at Bedtime PRESCRIBED Prescription Given During Visit No new medications prescribed at time of discharge.?? Laboratory Results Below is a partial list of the most recent Laboratory test results done prior to this discharge. You may have had other tests and procedures not included in this list. Please discuss all test resultswith your provider. POC Hemochron ACT-LR (09/03/2024) ???POC ACT-LR - 368.0 seconds Type and Screen (09/03/2024) ???Blood Type - O Positive???Antibody Screen - Negative You will be contacted within 72 hours with your results. Allergies (NKA means No Known Allergies) statins Problems Active Problems??(1) Obese class I?? Education Materials Below is the list of Educational Leaflet Providered with your Discharge Instructions. [employer] Ignite Patient Education - M-Groin I Discharge Instructions?? [employer] Ignite Patient Education - Discharge Instructions for Catheter Ablation?? Valuables and Belongings I fully understand and agree that [facility] accepts no responsibility for all my personal property including clothing, toilet articles, radios, jewelry, dentures, hearing aids, rings, money, or any other property that is in my possession or is brought to me after admission. I understand certain valuables may be placed in a hospital safe for a short period of time. I understand that the hospital is not liable for loss or damage due to accident, fire, or other natural occurrence while said property is in the safe. I accept full responsibility for any personal property that I keep with me, and will not hold the hospital responsible in case of loss or disappearance. I acknowledge that i have been encouraged to send valuables and belongings home. ?? Review of Valuable and Belonging List: With patient Date for Pt to Sign Valuables/Belongings: 09/03/24 08:25:00 ?? Other Discharge Information ? Pulmonary Rehab Status?? Pulmonary Rehab Discharge Status?? Respiratory Rate:??12 br/min??Low ? Common Emergency Awareness Tips IS IT A STROKE? Act FAST and Check for these signs: FACE Does the face look uneven? ARM Does one arm drift down? SPEECH Does their speech sound strange? TIME Call at any sign of stroke ?? Heart Attack Signs Chest discomfort: Most heart attacks involve discomfort in the center of the chest and lasts more than a few minutes, or goes away and comes back. It can feel like uncomfortable pressure, squeezing, fullness or pain. Discomfort in upper body: Symptoms can include pain or discomfort in one or both arms, back, neck, jaw or stomach. Shortness of breath: With or without discomfort. Other signs: Breaking out in a cold sweat, nausea, or lightheaded. Remember, MINUTES DO MATTER. If you experience any of these heart attack warning signs, call to get immediate medical attention! ?? Smoking can increase your chances of developing chronic health problems and can cause harmful effects to other family members in your house. If you smoke, you are strongly encouraged to quit. Please call [facility] Wealth Access Link at [phone] or [phone]) or log in to [email or web address] for referrals to smoking cessation programs. ?? 485 Suicide & Crisis Lifeline is available 25/04 if you or someone you know needs to find a reason to keep living. By calling 408 you'll be connected to a skilled, trained counselor at a crisis center in your area. INPATIENT DISCHARGE INSTRUCTIONS SIGNATURE PAGE DENNIS JUAREZ Location:[facility] Registration Date and Time:09/03/2024 07:24 EST Primary Care Physician: Stormy CHOPRA , Ronnie Ying, Attending Physician: Anastacio CHOPRA, Soy Heller, I DENNIS JUAREZ, have received the above patient education materials/instructions and have verbalized understanding. If ambulance or transport services are being used I further acknowledge being given a choice of service. ?? If you need to contact me, please call me at this number: . 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 179 Groin Discharge Instructions No heavy lifting over 10 pounds (for example: gallon of milk) 1 week following the procedure; gradually increase normal activity over the next 5 days. Avoid straining/pushing when moving bowels You may feel like resting more after your procedure. Slowly start to do more each day. Rest when you feel it is needed. Make sure to look at your procedure site every day until it is completely healed. You may see bruising at the puncture site and that is common after the procedure. You may shower the day after your procedure. Remove the band aid before showering. Wash the area gently with soap and water. Leave open to air. Do not take tub baths, hot tubs, soaking of the puncture site or swimming for 1 week. Do not put any creams, powders or lotions on your puncture site You may resume sexual activity the day after your procedure; avoid bending the hip on ?? the side of the groin puncture excessively and any strenuous positions for 1 week. Call your doctor if your procedure site develops any of the following: ??? New onset severe pain ??? New onset lump or swelling ??? Bleeding that does not stop with lightpressure ? * Cheyenne Horne RN: PERFORM Event Display: Patient Education Leaflets Authored Date: Discharge Instructions for Catheter Ablation ?? [address] Discharge Instructions for Catheter Ablation You have had a procedure called catheter ablation. It was??used to treat an abnormal heartbeat (arrhythmia). This procedure destroyed (ablated) the cells in your heart that were causing your heart rhythm problem. During the procedure, the healthcare provider put a thin,??flexible??wire (catheter)??into a blood vessel in your groin. You may have also had a catheter placed through a vein in your neck. The provider then threaded the catheter to your heart and destroyed the cells causing the problem. Home care Here are recommendations for care at home:? Make arrangements for someone to drive you home after the procedure. This is you will be given medicine to relax you (sedation). Your healthcare provider may tell you not to??drive for 24 to 48 hours after the procedure. ??? Expect to be able to go back to your normal daily activities in the next 1 to 2 days. 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 ??? Don't do any heavy physical activity or excessive bending atthe waist for several days after the procedure. This will allow your body to heal. ??? Don't lift heavy objects for a period of time after your ablation. Talk with your healthcare provider about any specific limits you need to follow. Ask your provider when it is OK to lift heavy objects and returnto physical activity. ??? Ask your healthcare provider when you can??return to work. ??? Check the area where the catheter was inserted for signs of infection every day for a week. Keep the site dry for 1 to 2 days or as instructed. Signs of infection include redness, swelling, drainage, or warmth at the incision site.??Take your temperature if you feel you may have a fever. Let your provider know if you develop any symptoms of infection or see any discharge from your site. ??? Take your medicines exactly as directed. Don???t skip doses. You may need to make some changes in your medicines because of the ablation procedure. Be sure to go over your medicine instructions with your healthcare pr ovider before you are discharged. ??? Learn to take your own pulse. Keep a record of your results. Ask your healthcare provider which readings mean that you need medical attention. ?? Follow-up care Make a follow-up appointment as directed by your healthcare provider. Your provider will check how the catheter site is healing. In many cases, one ablation is enough to treat an arrhythmia. But sometimes the problem comes back or another problem is found. If this happens, you may need a second procedure. ?? When to call your healthcare provider Call your healthcare provider right away if you have any of the following: ??? Redness, pain, swelling, bleeding, or drainage from the area where the catheter was put in ??? Temperature of 100.4??F (38.0??C) or higher, or as directed by your healthcare provider? Suddencoldness, pain, or numbness in the leg or arm where the catheter was put in ??? Nausea or vomiting ??? Difficulty swallowing, excessive pain when swallowing, or vomiting blood ??? Heart rate that stays high Note: Ask your healthcare provider what to expect about your heartbeat. Sometimes the irregularity goes away right after the procedure. Other times it may take longer to go away. ?? Call 911 Call 911 right away if you notice: ??? Bleeding from the puncture site does not slow down when you press on it firmly ??? Chest pain, shortness of breath, or dizziness ??? Sudden numbness or weakness, especially on one side of the body, or difficulty speaking ??? Sudden loss of consciousness/responsiveness ?? Last Reviewed Date: 2021 ?? [id number] [employer]. All rights reserved. This information is not intended as a substitute for professional medical care. Always follow your healthcare professional's instructions. ?? Patient Care team information Care Team Personnel Name: Ronnie Burrows MD Position: [facility] Outreach Member Role: PCP Address: [address] [place] [address]- Telecom: Care Team Related Persons Name: BARBARA JUAREZ Insurance Providers Guarantor name: DENNIS JUAREZ Wealth Access [facility] Information #: 1 Payer: MEDICARE PART B OUTPT Member Number: [id number] Policy Number: KIM Group Number: [id number] Plan Information #: 2 Payer: MEDEX Member Number: [id number] Policy Number: KIM Group Number: [id number]
--- OUTSIDE RECORDS SUMMARY | 2024-09-18 10:44 | XMS_ITS | Continuity of Care Document ---
Author Organization [facility] ter Address [address] [place] [id number]- Care Team Providers Care Millwright Supervisor Name Role Phone Ronnie Burrows MD Primary Care Physician [phone] Encounter [facility] [place] Date(s): 08/20/24 - 08/20/[address] [address]- Discharge Disposition: A-D/C Home Attending Physician: Soy [...] 10:51:00 AM EDT, Route to Pharmacy Electronically, [id number] Start Date: 07/07/20 Status: Ordered Quantity: 60.0 [...] recent to oldest [Reference Range]: 1 2 Height 182.88 cm (08/20/24 12:14 PM) Weight 102.0 kg (08/20/24 12:14 PM) Oxygen Saturation [94-100 %] 96 % (08/20/24 3:53 PM) 100 % (08/20/24 12:14 PM) Pulse Rate [55-90 bpm] 61 bpm (08/20/24 12:14 PM) Body Mass Index [18.5-24.99 kg/m2] 30.5 kg/m2 *>HHI* (08/20/24 12:14 PM) Blood Pressure [90-138/55-84 mm Hg] 136/ 80mm Hg (08/20/24 3:54 PM) 146/91mm Hg *H* (08/20/24 12:14 PM) Respiratory Rate [16-30 br/min] 22 br/mi n (08/20/24 3:53 PM) 14 br/min *L* (08/20/24 12:14 PM) Temperature [96.8-100.4 DegF] 97.1 DegF (08/20/24 12:14 PM) Mode of Delivery (Oxygen) Room air (08/20/24 3:45 PM) Room air (08/20/24 12:14 PM) Blood pressure sites Arm, right (08/20/24 12:14 PM) Temperature Route Oral (08/20/24 12:14 PM) Social History Social History Type Response Smoking Status Never (less than 100 in lifetime) entered on: 01/20/23 Sex Sex Representation Male (finding) EKG study * Event Display: ECG 12-Lead Authored Date: Please click on pdf link to open report * Event Display: ECG 12-Lead Authored Date: Ventricular Rate: 64 BPM Atrial Rate: 64 BPM P-R Interval: 268 ms QRS Duration: 124 ms Q-T Interval: 444 ms QTC Calculation(Bazett): 458 ms P [place]: 31 degrees R [place]: -40 degrees T [place]: 33 degrees Sinus rhythm with 1st degree A-V block Left axis deviation Non-specific intra-ventricular conduction delay Abnormal ECG When compared with ECG of 26-JUL-2024 09:48, No significant change was found Confirmed by Chai Loera ([id number]) on 08/20/2024 3:49:00 PM [place]: Chai oLera [facility] Progress note * Joanna Ospina RN: PERFORM, SIGN, VERIFY Event Display: Progress Note Hospital Authored Date: Patient: DENNIS JUAREZ Age: 68 years Sex: Male : 1955 Associated Diagnoses: None Author: Anai RÍOS, Joanna Findings Evaluation Procedure cancelled for today per Dr. Chaves. Bilateral arm IV's taken out. Pt to resume Eliquis tonight and Farxiga tomorrow am. Office will call patient to reschedule procedure. . Patient Care team information Care Team Personnel Name: Ronnie Burrows MD Position: S Outreach Member Role: PCP Address: [address] [place] [address] Telecom: Care Team Related Persons Name: BARBARA JUAREZ Insurance Providers Guarantor name: DENNIS JUAREZ Health Plan Information #: 2 Payer: MEDEX Member Number: [id number] Policy Number: NA Group Number: [id number] Health Plan Information #: 1 Payer: MEDICARE PART B OUTPT Member Number: [id number] Policy Number: NA Group Number: NA
--- OUTSIDE RECORDS SUMMARY | 2024-09-18 10:44 | XMS_ITS | Continuity of Care Document ---
Author Organization [facility] Address [address] [place] [phone]- Care Team Providers Care Family Intervention Specialist Name Role Phone Stormy CHOPRA, Ronnie Ying Primary Care Physician [place] [facility] [place] 08/29/24 [facility] [address] [place] [phone]- Encounter Type: Triage Allergies, Adverse Reactions, Alerts Substance Criticality Severity [...] 10:51:00 AM EDT, Route to Pharmacy Electronically, [id number] Start Date: 07/07/20 Status: Ordered [...] atus Informant Obese class I Confirmed Active Social History Social History Type Response Smoking Status Never (less than 100 in lifetime) entered on: 01/20/23 Sex Sex Representation Male (finding) Patient Care team information Care Team Personnel Name: Ronnie Brurows MD Position: S Outreach Member Role: PCP Address: [address] [place] [address] [place] [id number]- [place] Telecom: Care Team Related Persons Name: BARBARA JUAREZ Insurance Providers Guarantor name: DENNIS JUAREZ [facility] Plan Information #: 1 Payer: MEDICARE PART B OUTPT Member Number: NA Policy Number: NA Group Number: NA
--- OUTSIDE RECORDS SUMMARY | 2024-09-18 10:45 | XMS_ITS | Continuity of Care Document ---
Author Organization [facility] Address [address] [place] [phone]- Care Team Providers Care Radio Frequency Engineer Name Role Phone Stormy CHOPRA, Ronnie Ying Primary Care Physician [place] [facility] [place](s): 07/26/24 - 08/25/24 [facility] [address] [place] [phone]- Attending Physician: Candy Banuelos Admitting Physician: Candy Banuelos Referring Physician: Candy Banuelos Encounter Type: Triage Allergies, Adverse Reactions, Alerts [...] 10:51:00 AM EDT, Route to Pharmacy Electronically, [id number] Start Date: 07/07/20 Status: Ordered Quantity: 60.0 [...] on: 01/20/23 Sex Sex Representation Male (finding) Cardiology * Event Display: Non BH Cardiovascular Results Authored Date: * Event Display: EKG Non BH Authored Date: * Event Display: Cardiology Office Note, Non-BH Authored Date: Patient Care team information Care Team Personnel Name: Stormy CHOPRA , Ronnie Ying Position: [facility] Outreach Member Role: PCP Address: [address] [place] [address] Telecom: Care Team Related Persons Name: BARBARA JUAREZ Insurance Providers Guarantor name: DENNIS JUAREZ [facility] Plan Information #: 1 Payer: MEDICARE PART B OUTPT Member Number: NA Policy Number: NA Group Number: NA
== END 2024-09-18 11:14 | disposition home or self-care (01) ==
PROVIDERS: PCP Family Medicine; Visit Provider Nurse Practitioner Family
DX: R33.9 Retention of urine, unspecified (principal); R97.20 Elevated prostate specific antigen [PSA]; Z13.9 Encounter for screening, unspecified
CPT/HCPCS: 99214; G2211

== ENCOUNTER → 2024-09-18 10:35 | Outpatient (BNVA) | payer MEDICARE, SELFPAY | PROVIDERS: PCP Family Medicine; Visit Provider Nurse Practitioner Family | DX: R33.9 Retention of urine, unspecified (principal); N39.490 Overflow incontinence; R97.20 Elevated prostate specific antigen [PSA] | CPT/HCPCS: 51798; 81003; 99212 ==

== ENCOUNTER 2024-11-16 08:18 | Outpatient (AMB) | payer MEDICARE, SELFPAY ==
--- NOTE | 2024-11-16 08:34 | MHC.PC.OV ---
Vital Signs 11/16/24 08:36 Height 6 ft Weight 219 lb 8 oz BMI 29.8 BP 118/60 Blood Pressure Location Lt brachial Position Sitting Respiration 14 Pulse 82 Pulse Source Pulse Oximeter Temp 97.8 F Temp Source Oral Pulse Oximetry (%) 99 Oxygen Delivery Method Room Air Intake Visit Reasons: f/u hypertension, chronic conditions Intake Note: b/p check Allergies atorvastatin Allergy (Severe, Verified 11/16/24 08:34) cognitive decline Tobacco use date assessed: 03/29/24 Dental Screening Dental Screen Date: 05/25/23 HPI f/u hypertension, chronic conditions HPI Details 69 y/o male presents to f/u hypertension, chronic conditions. Blood pressure today 118/60, 82p. He is on lisinopril 20-12.5mg daily, metoprolol 25mg. Notes he had gotten an ablation September 03 at [facility]. He continues to be on Eliquis. He is off his flecainide. [facility] Medical History Babesiosis Cardiomyopathy Hepatomegaly Hemochromatosis Gout Broken fibula Anticoagulant long-term use HTN (hypertension) PAF (paroxysmal atrial fibrillation) Surgical History History of removal of skin mole History of laparoscopic cholecystectomy (04/04/23) History of liver biopsy History of esophagogastroduodenoscopy (EGD) Hx of colonoscopy History of right mastoidectomy Family History Father Diabetes Mother Afib Cardiac pacemaker Brother Afib Sister Afib Uterine cancer Social History Household Members: Spouse Housing: House Alcohol intake: current Alcohol intake frequency: a few times a week Alcohol type: beer Patient Tobacco Use Status: Never used Tobacco e-Cigarette/Vaping Use: Never Used Second Hand Smoke Exposure: No service: No Current occupational status: retired Current occupational exposures/hazards: No Cognitive needs: No Hearing needs: No Vision needs: No Questionnaire PHQ-9 Over the last 2 weeks, how often have you been bothered by any of the following problems? 1. Little interest or pleasure in doing things: not at all 2. Feeling down, depressed, or hopeless: not at all 3. Trouble falling or staying asleep, or sleeping too much: not at all 4. Feeling tired or having little energy: not at all 5. Poor appetite or overeating: not at all 6. Feeling bad about yourself - or that you are a failure or have let yourself or your family down: not at all 7. Trouble concentrating on things, such as reading the newspaper or watching television: not at all 8. Moving or speaking so slowly that other people could have noticed. Or the opposite - being so fidgety or restless that you have been moving around a lot more than usual: not at all 9. Thoughts that you would be better off or of hurting yourself in some way: not at all Total score: 0 Source: Developed by Drs. Addy Larson, Nancy Hernández, Star Goldstein and colleagues, with an educational danny from [employer]. Thrive Questionnaire Date Thrive assessed: 11/09/24 I am a: Patient What is your living situation today?: I have a steady place to live Within the past 12 months, did the food you bought not last and you didn't have the money to get more?: Never true Within the past 12 months, did you worry whether your food would run out before you got money to buy more?: Never true Do you have trouble paying for medicines?: No Do you have trouble getting transportation to medical appointments?: No Do you have trouble paying your heating and electricity bill?: No Do you have trouble taking care of your child, family member or friend?: No Do you have trouble with day-to-day activities such as bathing, preparing meals, shopping, managing finances, etc.?: No Are you currently unemployed and looking for a job?: No Are you interested in more education?: No Please select the resources that you would like help with: None Currently or been in a relationship where the following occur: No concerns reported THRIVE Score: 0 AUDIT C Alcohol Use Questionnaire (AUDIT-C) 1. How often do you have a drink containing alcohol?: 2-4 times a month 2. How many drinks containing alcohol do you have on a typical day when you are drinking?: 1 or 2 3. How often do you have six or more drinks on one occasion?: Never Total Score: 2 LEXA-7 AMB Questionnaire LEXA-7 Date LEXA - 7 assessed: 11/22/23 Feeling nervous, anxious, or on edge: 0 = Not at all Not being able to stop or control worryin = Not at all Worrying too much about different things: 0 = Not at all Trouble relaxin = Not at all Being so restless that it is hard to sit still: 0 = Not at all Becoming easily annoyed or irritable: 0 = Not at all Feeling afraid as if something awful might happen: 0 = Not at all Total LEXA-7 score (0-4 normal; 5-9 mild; 10-14 moderate; 15-21 severe): 0 Source: Developed by Drs. Addy Larson, Nancy Hernández, Star Goldstein and colleagues, with an educational danny from [employer]. Review of Systems Const Denies chills, Denies fatigue, Denies fever(s), Denies headache(s) and Denies weakness ENT Denies dizziness and Denies headache(s) Card Denies chest pain, Denies lightheadedness, Denies dyspnea and Denies other (Palpitations) Resp Denies cough, Denies dyspnea, Denies wheezing and Denies other ( shortness of breath) Musc Denies numbness and Denies tingling Neuro Denies dizziness, Denies headache(s), Denies numbness, Denies tingling, Denies paresthesias and Denies weakness Psych Denies anxiety and Denies depression Endo Denies fatigue Aller/Immun Denies wheezing Physical exam (Primary Care) Vital Signs: Last Vital Signs Temp 97.8 F 11/16/24 08:36 Pulse 82 11/16/24 08:36 Resp 14 11/16/24 08:36 BP 118/60 11/16/24 08:36 Pulse Ox 99 11/16/24 08:36 Oxygen Delivery Method Room Air 11/16/24 08:36 BMI result Body Mass Index 29.8 Tobacco/Smoking Status: Tobacco use Status Tobacco use date assessed 03/29/24 11/16/24 08:38 Patient Tobacco Use Status Never used Tobacco 11/16/24 08:38 e-Cigarette/Vaping Use Never Used 11/16/24 08:38 PHQ-9: PHQ-9 Score PHQ-9: Total score 0 11/16/24 08:38 Thrive Assessment: Date of Thrive Assessment Date Thrive assessed 11/09/24 11/16/24 08:38 Currently or been in a relationship where the following occur: No concerns reported Const General: no acute distress and well developed Nutritional Appearance: well nourished Orientation/consciousness: patient oriented x3 HENMT Head: Yes normocephalic and Yes atraumatic Eyes General: appearance normal, both eyes and all related structures Pupils: Equal, round and reactive pupils present EOM: EOMs intact bilaterally Resp Effort & Inspection: normal respiratory effort Auscultation: clear to auscultation bilaterally Cardio Rate: regular rate Rhythm: regular rhythm Heart sounds: S1 normal heart sound present, S2 normal heart sound present, no gallops, no murmurs and no rubs Neuro General: patient oriented x3 and gait normal Cranial nerves: Yes Equal, round and reactive pupils present Psych Affect: normal affect Coding Level of Care Code Est Pt Level 3 (35236) Diagnoses HTN (hypertension) I10 PAF (paroxysmal atrial fibrillation) I48.0 Assessment & Plan Assessment & Plan (1) HTN (hypertension): Code(s): I10 - Essential (primary) hypertension Category: Medical Plan: Blood?pressure?is?controlled.??Goal?is?less?than?130/80 Continue?current?medication?regimen (2) PAF (paroxysmal atrial fibrillation): Code(s): I48.0 - Paroxysmal atrial fibrillation Category: Medical Plan: Recent?ablation Appears?to?be?in?regular?rhythm?today He?continues?Eliquis?but?is?no?longer?on?flecainide Follow-up?with?Cardiology?as?recommended Orders: Orders Complete Blood Count Auto Diff Today Z00.00 - Encounter for general adult medical examination without abnormal findings Lipid Panel Today Z00.00 - Encounter for general adult medical examination without abnormal findings Microalbumin, Random (w Creat) Today I10 - Essential (primary) hypertension UA and rflx microscopic Today Z00.00 - Encounter for general adult medical examination without abnormal findings Comprehensive Micro. Panel Fast Today Z00.00 - Encounter for general adult medical examination without abnormal findings TSH reflex Free T4 Today Z00.00 - Encounter for general adult medical examination without abnormal findings
[2024-11-16 08:36] VITALS: BP 118/60; PULSE 82; RESP 14; TEMP 36.6; O2SAT 99; BMI 29.8
== END 2024-11-16 11:07 | disposition home or self-care (01) ==
PROVIDERS: PCP Family Medicine; Visit Provider Family Medicine
DX: I10 Essential (primary) hypertension (principal); I48.0 Paroxysmal atrial fibrillation

== ENCOUNTER → 2024-11-16 08:18 | Outpatient (BNVA) | payer MEDICARE, SELFPAY | PROVIDERS: PCP Family Medicine; Visit Provider Family Medicine | DX: I10 Essential (primary) hypertension (principal); I48.0 Paroxysmal atrial fibrillation | CPT/HCPCS: 99212 ==

== ENCOUNTER 2024-12-06 10:14 | Outpatient (REF) | payer MEDICARE, SELFPAY ==
--- NOTE | ~2024-12-06 | US_ITS ---
CLINICAL HISTORY: R16.0 - Hepatomegaly, not elsewhere classified US abdomen complete with color Doppler Comparison: None Findings: The visualized pancreas, aorta, and inferior vena cava are unremarkable. Borderline hepatomegaly with coarseheterogeneous echotexture. Right lobe 19.0 cm length. No focal hepatic masses. Common duct 5.5 mm diameter. Post cholecystectomy. No sonographic Doll sign. Right kidney normal size, 12.3 cm in length. Normal cortical width and echotexture. No solid or cystic renal masses. No nephrolithiasis or hydronephrosis Left kidney normal, 12.1 cm in length. Normal cortical width and echotexture. No solid or cystic renal masses. No nephrolithiasis or hydronephrosis. Spleen measures 14.7 cm. No splenic masses. No ascites. No lymphadenopathy. Impression: 1. Mild hepatosplenomegaly. Coarse hepatic echotexture with probable volume redistribution suggesting mild cirrhosis. No focal hepatic lesions. 2. Post cholecystectomy. No biliary dilatation. This document has been electronically signed by: Kyler Amaya MD on 12/08/2024 13:47:30
--- OUTSIDE RECORDS SUMMARY | 2024-12-06 12:07 | XMS_ITS | Continuity of Care Document ---
Author Organization [facility] Address [address] [place] [phone]- Care Team Providers Care Museum Docent Name Role Phone Ronnie Burrows MD Primary Care Physician [place] [facility] [place] 11/02/24 - 12/02/24 [facility] [address] [place] [address]- Attending Physician: Candy Banuelos Admitting Physician: Candy [...] Quantity: 30.0 Unit: tablet Repeat number: 1 finasteride 5 mg oral tablet TAKE 1 TABLET BY MOUTH EVERY DAY Start Date: 11/02/24 Status: Ordered Repeat number: 1 flecainide 100 mg oral tablet 100 mg, 1, tablet, By Mouth, Every 12 hours, # 60 tablet, Refills 3, Tot. Refills 3, Maintenance, 07/07/20 10:51:00 AM EDT, Route to Pharmacy Electronically, [facility] Start Date: 07/07/20 Status: Ordered Quantity: 60.0 [...] Team Personnel Name: Ronnie Burrows MD Position: [facility] Outreach Member Role: PCP Address: [address] [place] [id number] Telecom: Care Team Related Persons Name: BARBARA JUAREZ Insurance Providers Guarantor name: DENNIS JUAREZ Health Plan Information #: 1 Payer: MEDICARE PART B OUTPT Member Number: NA Policy Number: NA Group Number: NA Health Plan Information #: 2 Payer: MEDEX Member Number: NA Policy Number: NA Group Number: NA
== END 2024-12-06 10:15 | disposition home or self-care (01) ==
LOC: HO.HMGCX 10:14
PROVIDERS: PCP Family Medicine; Visit Provider Internal Medicine
DX: R16.0 Hepatomegaly, not elsewhere classified (principal)
CPT/HCPCS: 76700

== ENCOUNTER → 2024-12-06 10:40 | Outpatient (BNV) | payer MEDICARE, SELFPAY | PROVIDERS: PCP Family Medicine; Visit Provider Radiology Diagnostic Radiology | DX: R16.0 Hepatomegaly, not elsewhere classified (principal) | CPT/HCPCS: 76700 ==

== ENCOUNTER 2024-12-26 09:20 | Outpatient (AMB) | payer MEDICARE, SELFPAY ==
[2024-12-26 09:27] VITALS: BP 100/70; PULSE 64; BMI 29.5
--- NOTE | 2024-12-26 09:27 | A.OFFVIS_ITS ---
Vital Signs 12/26/24 09:27 Height 6 ft Weight 217 lb 6.012 oz BMI 29.5 BP 100/70 Blood Pressure Location Lt brachial Position Sitting Pulse 64 Pulse Source Monitor Intake Visit Reasons: 4m follow up Intake Note: 4 mth f/up [employer] Required: No Accompanied by: Self / Same As Patient Allergies atorvastatin Allergy (Severe, Verified 11/16/24 08:34) cognitive decline Medication List - Last Reconciled 12/26/24 by Gonzalo Luna MD allopurinol 200 mg (2 x 100 mg) PO DAILY 90 days apixaban (Eliquis) 5 mg PO BID dapagliflozin propanediol (Farxiga) 5 mg PO DAILY ezetimibe 10 mg PO DAILY 90 days finasteride 5 mg PO DAILY 90 days lisinopril-hydrochlorothiazide 20-12.5 mg 2 tabs PO DAILY metoprolol succinate ER 25 mg PO DAILY 90 days terazosin 5 mg PO BEDTIME 90 days trazodone 50 mg PO BEDTIME 90 days HPI Comments Details: Pleasant 69-year-old gentleman here for follow-up. He has background history of paroxysmal atrial fibrillation. He has been on apixaban and flecainide. Clinically doing well and has no significant palpitations at this stage. No chest pain or shortness breath. He was complaining of right upper quadrant pain and was referred for ultrasound. This showed hepatosplenomegaly and he was referred to GI. His workup has shown concern for iron deposits in the liver but he is heterozygous for hemochromatosis. His brother has been diagnosed with hemochromatosis and is actually undergoing bloodletting. He continues to do well and has no chest discomfort or shortness of breath and is not experiencing any physical limitations but his echocardiogram performed in September is showing that his ejection fraction is 48%. This is lower than before. Given the concern for iron deposition and heterozygous hemochromatosis with question is that is there iron infiltration of myocardium also. Tolerating meds otherwise. Cardiac MRI was done which showed dilated left ventricle with mild global hypokinesis LVEF 48%. This small focal near transmural delayed enhancement in the distal inferior wall as well as small size near transmural delayed enhancement at the mid inferior septum and possibly at the basal anterior septum. Suspect fibrosis, dilated cardiomyopathy, elevated right heart pressures, less likely small infarct. The sequence for assessing iron deposits in the myocardium was incorrectly done on this exam. Continues to be asymptomatic and physically active. 02/15/2024: He returns for follow-up. He had MRI to look for hemochromatosis and no evidence of hemochromatosis were noticed. 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 He has received antibiotics for that. He also has an elevated PSA and is seeing Urology. He is asking about ablation as his friends have done that before with good success. Denying any palpitations otherwise and no symptoms as before. 05/14/24: He is here for f/u. He had repeat echo 03/13/24 which showed EF 50-55 %. basal inf hypokinesis and mild RV dilation. Severe RA dilation. He has been experiencing urinary issues due to BPH and was given flomax which he could not tolerate and was given Terazosin. He also tried Farxiga but became dizzy and he stopped taking it. He has no CP but has been feeling fatigued. He will be seeing Dr Chaves for ablation. 08/29/2024: He returns for follow-up. He is undergoing ablation for atrial fibrillation on Tuesday. Has been taking medications regularly. No significant complaints on follow-up. He is taking Farxiga and has been tolerating it well. 12/26/2024: He is here for follow-up. He had ablation and has been doing well. He is off the flecainide at this stage. He had a discussion with Dr. Chaves about stopping Eliquis. He advised him to monitor with Kardia device. The patient has bought an Mantis [employer] watch and has been monitoring his rhythm with that. He has been doing well after getting off flecainide and after ablation. He is undergoing endoscopy and endoscopic ultrasound to assess for ?bile duct stone in January. [facility] Medical History Babesiosis Cardiomyopathy Hepatomegaly Hemochromatosis Gout Broken fibula Anticoagulant long-term use HTN (hypertension) PAF (paroxysmal atrial fibrillation) Surgical History (Updated 12/26/24 @ 09:30 by Ambar Curtis [facility]) S/P ablation of atrial fibrillation History of removal of skin mole History of laparoscopic cholecystectomy (04/04/23) History of liver biopsy History of esophagogastroduodenoscopy (EGD) Hx of colonoscopy History of right mastoidectomy Family History Father Diabetes Mother Afib Cardiac pacemaker Brother Afib Sister Afib Uterine cancer Social History Household Members: Spouse Housing: House Alcohol intake: current Alcohol intake frequency: a few times a week Alcohol type: beer Patient Tobacco Use Status: Never used Tobacco e-Cigarette/Vaping Use: Never Used Second Hand Smoke Exposure: No service: No Current occupational status: retired Current occupational exposures/hazards: No Cognitive needs: No Hearing needs: No Vision needs: No Review of Systems Const Denies chills, Denies fatigue, Denies fever(s), Denies frequent falls, Denies weakness, Denies weight gain and Denies weight loss ENT Denies dizziness Card Denies chest pain, Denies leg edema, Denies lightheadedness, Denies palpitations, Denies dyspnea and Denies dyspnea on exertion Resp Denies cough, Denies dyspnea and Denies dyspnea on exertion GI Denies hematochezia Musc Denies abnormal gait, Denies muscle weakness, Denies numbness, Denies radiating pain into limb and Denies tingling Neuro Denies abnormal gait, Denies dizziness, Denies frequent falls, Denies numbness, Denies tingling and Denies weakness Endo Denies fatigue and Denies palpitations Physical Exam Vital Signs: Last Vital Signs Pulse 64 12/26/24 09:27 BP 100/70 12/26/24 09:27 BMI result Body Mass Index 29.5 GENERAL APPEARANCE: in no acute distress, pleasant. NECK: no carotid bruit, no jugular venous distention. SKIN: no suspicious lesions, warm and dry. HEART: no murmurs, regular rate and rhythm. LUNGS: clear to auscultation bilaterally. ABDOMEN: soft, nontender. EXTREMITIES: no edema. PERIPHERAL PULSES: equal. NEUROLOGIC: No gross deficits, AAO X 3 Office Procedures EKG Details: Sinus rhythm with first-degree AV block VT interval 212 milliseconds, right axis deviation, QTC 412 milliseconds. [id number], Complete Assessment & Plan Assessment & Plan (1) PAF (paroxysmal atrial fibrillation): Code(s): I48.0 - Paroxysmal atrial fibrillation Category: Medical (2) HTN (hypertension): Code(s): I10 - Essential (primary) hypertension Category: Medical (3) Cardiomyopathy: Code(s): I42.9 - Cardiomyopathy, unspecified Category: Medical Plan Pleasant 69 year gentleman who is here for follow-up. He has background history of nonischemic cardiomyopathy and paroxysmal atrial fibrillation. He was on flecainide and Eliquis and underwent ablation and is now off the flecainide. He has been advised to monitor for atrial fibrillation for the next year to see if he develops any other episode. If he does not then we can have discussion about stopping Eliquis. I have explained to him that the reason for not stopping Eliquis is that patient stent to developed atrial fibrillation at some stage in some cases and unfortunately can get stroke. He understands this and we will rediscuss this in a year. Otherwise clinically stable. Blood pressure well controlled. He can hold his Eliquis for 3 days before the endoscopy. He is intermediate risk for perioperative complications. Follow up with me in 4 months. Thank you for allowing me to participate in the care of your patient. Please feel free to contact me if you have any questions. Coding Level of Care Code Est Pt Level 4 (31563) Complex EM visit Add On G2211 Diagnoses PAF (paroxysmal atrial fibrillation) I48.0 HTN (hypertension) I10 Cardiomyopathy I42.9 CPT Codes EKG - CPT: 05017-[id number], Complete ([id number])
== END 2024-12-26 09:50 | disposition home or self-care (01) ==
LOC: HO.HCS 09:21
PROVIDERS: PCP Family Medicine; Visit Provider Internal Medicine Cardiovascular Disease
DX: I48.0 Paroxysmal atrial fibrillation (principal); I10 Essential (primary) hypertension; I42.9 Cardiomyopathy, unspecified
CPT/HCPCS: 93010; 99214; G2211

== ENCOUNTER → 2024-12-26 09:20 | Outpatient (BNVA) | payer MEDICARE, SELFPAY | PROVIDERS: PCP Family Medicine; Visit Provider Internal Medicine Cardiovascular Disease | DX: I48.0 Paroxysmal atrial fibrillation (principal); I10 Essential (primary) hypertension; I42.9 Cardiomyopathy, unspecified | CPT/HCPCS: 93005; 99212 ==

== ENCOUNTER 2025-01-03 06:45 | Outpatient (REF) | payer MEDICARE, SELFPAY ==
[2025-01-03 08:08] LABS: PSA,Total (Free>4and<10) 3.38 ng/mL (0.00-4.00)
== END 2025-01-03 06:46 | disposition home or self-care (01) ==
LOC: HO.LAB 06:45
PROVIDERS: PCP Family Medicine; Visit Provider Nurse Practitioner Family
DX: R97.20 Elevated prostate specific antigen [PSA] (principal); Z12.5 Encounter for screening for malignant neoplasm of prostate
CPT/HCPCS: 36415; 84153

== ENCOUNTER 2025-01-17 08:32 | Outpatient (AMB) | payer MEDICARE, SELFPAY ==
--- NOTE | 2025-01-17 08:53 | A.OFFVIS_ITS ---
Intake Visit Reasons: 4M PSA total(set) Intake Note: Patient presents today for follow up visit on: incomplete bladder emptying Urology Medications: Terazosin, ,finasteride Blood Thinner: Eliquis * PVR: 805ml's Pt Skilled Required: No Accompanied by: Self / Same As Patient Allergies atorvastatin Allergy (Severe, Verified 01/17/25 09:27) cognitive decline Medication List - Last Reconciled 01/17/25 by JADON Pina- allopurinol 200 mg (2 x 100 mg) PO DAILY 90 days apixaban (Eliquis) 5 mg PO BID bethanechol chloride 50 mg PO BID 30 days dapagliflozin propanediol (Farxiga) 5 mg PO DAILY ezetimibe 10 mg PO DAILY 90 days finasteride 5 mg PO DAILY 90 days lisinopril-hydrochlorothiazide 20-12.5 mg 2 tabs PO DAILY metoprolol succinate ER 25 mg PO DAILY 90 days trazodone 50 mg PO BEDTIME 90 days HPI Comments Details: Price is a pleasant 69-year-old male patient of Dr. Burrows. He has a past medical history of cardiomyopathy follows with Dr. Luna, hepatomegaly, hemochromatosis follows with Dr. Christianson, gout, hypertension, paroxysmal atrial fibrillation on anticoagulation. He presents to the office today for follow-up of his incomplete bladder emptying/retention, overflow incontinence and elevated PSA. In discussion with the patient today he reports to be doing and feeling well. He reports compliance with terazosin and finasteride as prescribed. He does however report intermittent episodes of dizziness with terazosin. Unable to obtain urine for urinalysis today as patient unable to void however PVR 805 mL. He discusses upcoming procedure on Tuesday with Gastroenterology at [facility] for question of bile duct blockage. We discussed. We have discussed at length causes and affects of incomplete bladder emptying, overflow incontinence, and elevated PSA. We discussed further treatment options for incomplete bladder emptying / urinary retention to include CIC verses Sutton catheter. We discussed in office cystoscopy for further assessment evaluation. However, patient continues to decline all treatment options at this time although we discussed potential for significant consequences in delays and treatment. He reports feeling no bothersome urinary issues or concerns. 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 Recent PSA results reviewed with the patient today. PSAs are as follows PSAs: 05/23 2.1, 05/24 3.1, 11/26 5.7, 12/24 5.9, 03/26 5.6 PSA free 14%, 01/25 3.4 Previous retroperitoneal ultrasound 04/25 bilateral kidneys with no calculi, lesions, and or hydronephrosis. The bladder is distended and normal. Bilateral jets are demonstrated. Pre void bladder volume is approximately 1200 mL. Postvoid bladder volume is approximately a 1000 mL. Prostate measures approximately 70 mL. We discussed decrease in PSA with finasteride. He denies urinary urgency, urinary frequency, incontinence, nocturia, hematuria, dysuria, foul smelling urine, changes to urinary stream, flank pain, fever, and or chills. Discussed correlation of incomplete bladder emptying with elevated PSA. He otherwise offers no other issues or concerns at this time. [facility] Medical History Babesiosis Cardiomyopathy Hepatomegaly Hemochromatosis Gout Broken fibula Anticoagulant long-term use HTN (hypertension) PAF (paroxysmal atrial fibrillation) Surgical History S/P ablation of atrial fibrillation History of removal of skin mole History of laparoscopic cholecystectomy (04/04/23) History of liver biopsy History of esophagogastroduodenoscopy (EGD) Hx of colonoscopy History of right mastoidectomy Family History Father Diabetes Mother Afib Cardiac pacemaker Brother Afib Sister Afib Uterine cancer Social History Household Members: Spouse Housing: House Alcohol intake: current Alcohol intake frequency: a few times a week Alcohol type: beer Patient Tobacco Use Status: Never used Tobacco e-Cigarette/Vaping Use: Never Used Second Hand Smoke Exposure: No service: No Current occupational status: retired Current occupational exposures/hazards: No Cognitive needs: No Hearing needs: No Vision needs: No Review of Systems Const Reports no additional complaints Eyes Reports no additional complaints ENT Reports no additional complaints Card Reports as per HPI Resp Reports no additional complaints GI Reports as per HPI Reports as per HPI Musc Reports no additional complaints Neuro Reports no additional complaints Psych Reports no additional complaints Endo Reports no additional complaints [place]/Lymph Reports as per HPI Aller/Immun Reports no additional complaints Physical Exam Const General: cooperative, healthy appearing, comfortable, no acute distress, well developed, alert and awake Orientation/consciousness: patient oriented x3 Limitations: no limitations HEENT Head: Yes normal to inspection, Yes normocephalic and Yes atraumatic Ears: hearing grossly normal bilaterally Eyes General: appearance normal, both eyes and all related structures Neck Neck: Yes normal visual inspection and Yes trachea midline Chest Chest palpation & inspection: normal inspection of the chest Resp Effort & Inspection: normal respiratory effort and able to speak in complete sentences Cardio Rate: regular rate GI Inspection: Yes normal to inspection General: Yes no CVA tenderness Back/Spine/Pelvis Back: no CVA tenderness Skin General skin exam: no rashes or lesions noted Neuro General: patient oriented x3 Extrem General: Yes normal to inspection Psych Appearance: grossly normal and well kempt Mental Status: mental status grossly normal Speech and movement: Normal speech and movement present and Clear speech present Affect: normal affect Attitude: cooperative Thought process: Normal thought process present Thought content: Normal thought content present Insight: Fair insight present (Psych) Judgement: Fair judgement present (Psych) Office Procedures Post Void Residual Post Residual Void Post Void Residual (PVR): 805 [id number] Void Residual by ultrasound Assessment & Plan Assessment & Plan (1) Elevated PSA: Code(s): R97.20 - Elevated prostate specific antigen [PSA] Category: Medical (2) Incomplete bladder emptying: Code(s): R33.9 - Retention of urine, unspecified Category: Medical Plan Unable to obtain urine for urinalysis however PVR 805 mL Recent PSA results reviewed with the patient today; as noted above Stopped terazosin. Start bethanechol as discussed and prescribed. Continue finasteride. We discussed at length potential causes and affects of incomplete bladder emptying, urinary retention, and elevated PSA; we discussed further treatment options of these urological issues as well as consequences of not undergoing further treatment options. Patient continues to decline all further treatment options urinary retention. He is happy with his current voiding parameters. Follow-up in 3 months with PVR and PSA; or sooner with any issues, concerns, and or questions. Orders: Orders AMB Post Void Residual by ultrasound 01/17/25 R33.9 - Retention of urine, unspecified Prostate Specific Antigen 3 Months R97.20 - Elevated prostate specific antigen [PSA] Medications: New bethanechol chloride 50 mg PO BID 60 tabs 3RF 30 days N39.0 - Urinary tract infection, site not specified Discontinued terazosin Discontinued Reason: Doctor's Order 5 mg PO BEDTIME 90 days 90 caps 1RF N40.1 - Benign prostatic hyperplasia with lower urinary tract symptoms, R35.0 - Frequency of micturition Patient Instructions: The patient had an opportunity to ask questions regarding the treatment plan. All questions were answered. Physical exam, labs, and imaging were discussed and reviewed in detail. As well as risks, benefits, and discussion of treatment choices. No major barriers to understanding were identified. The patient expressed understanding and agreement with the above treatment plan. The patient was made aware they should contact our office by phone for worsening of their current condition, the appearance of new symptoms, or with any questions or concerns. Compliance is encouraged with any medications and follow up testing that is ordered. It is a privilege to be allowed the opportunity to participate in? your urological care.? Again, if you have any questions or concerns If you have any questions or concerns please do not hesitate to contact me. The office is [phone]. This note is constructed using voice recognition software. While every effort has been made to ensure accuracy planting supervisor errors may have been included. Yours sincerely, NELDA Pina Coding Level of Care Code Est Pt Level 4 (52580) Complex EM visit Add On G2211 Diagnoses Elevated PSA R97.20 Incomplete bladder emptying R33.9 CPT Codes Post Residual Void - PVR CPT Code: [id number]-[id number] Void Residual by ultrasound ([id number])
== END 2025-01-17 09:24 | disposition home or self-care (01) ==
LOC: HO.HUSH 08:33
PROVIDERS: PCP Family Medicine; Visit Provider Nurse Practitioner Family
DX: R97.20 Elevated prostate specific antigen [PSA] (principal); R33.9 Retention of urine, unspecified
CPT/HCPCS: 99214; G2211

== ENCOUNTER → 2025-01-17 08:32 | Outpatient (BNVA) | payer MEDICARE, SELFPAY | PROVIDERS: PCP Family Medicine; Visit Provider Nurse Practitioner Family | DX: N40.1 Benign prostatic hyperplasia with lower urinary tract symptoms (principal); R97.20 Elevated prostate specific antigen [PSA]; R33.8 Other retention of urine; N39.0 Urinary tract infection, site not specified; R35.0 Frequency of micturition | CPT/HCPCS: 51798; 99212 ==

== ENCOUNTER 2025-02-13 10:36 | Outpatient (REF) | payer MEDICARE, SELFPAY ==
[2025-02-13 14:59] LABS: Hematocrit 42.8 % (42.0-52.0); Hemoglobin 14.7 g/dl (14.0-18.0); Mean Corpuscular HGB Conc 34.3 g/dl (31.0-36.0); Mean Corpuscular Hemoglobin 34.8 pg (27.0-33.0); Mean Corpuscular Volume 101.2 fL (80.0-98.0); Mean Platelet Volume 10.5 fL (9.4-12.4); Platelet Count 190 X10*3/uL (160-400); Red Blood Count 4.23 X10*6/uL (4.60-5.80); Red Cell Distribution Width 12.6 % (11.0-16.0); White Blood Count 5.8 X10*3/uL (4.8-10.8)
[2025-02-13 15:28] LABS: Iron 146 mcg/dL (45-160); Percent Iron Saturation 60 % (15-50); Total Iron Binding Capacity 243 mcg/dL (228-428); Unsaturated Iron Binding 97 ug/dL
[2025-02-13 15:47] LABS: Ferritin 58 ng/mL (20-250)
== END 2025-02-13 10:37 | disposition home or self-care (01) ==
LOC: HO.WFDLDS 10:36
PROVIDERS: Visit Provider Internal Medicine
DX: E83.119 Hemochromatosis, unspecified (principal)
CPT/HCPCS: 36415; 82728; 83540; 85027

== ENCOUNTER 2025-02-26 10:47 | Outpatient (REF) | payer MEDICARE, SELFPAY | END 2025-02-26 10:48 | disposition home or self-care (01) | LOC: HO.BBR 10:47 | PROVIDERS: PCP Family Medicine; Visit Provider Internal Medicine | DX: Z13.89 Encounter for screening for other disorder (principal) ==

== ENCOUNTER 2025-04-03 06:10 | Outpatient (REF) | payer MEDICARE, SELFPAY ==
--- OUTSIDE RECORDS SUMMARY | 2025-04-03 06:12 | XMS_ITS | Patient Health Record ---
Author Organization [facility] Address [address] [place] [address] Care Team Providers Care Smutter Name Role Phone Kimber(inactive) Aaron CHOPRA Primary Care Provider U Ej Garcia Jr Unavailable Reason For Referral No Information Medications Medication SIG (Take, Route, Frequency, Duration) Notes Start Date End Date Status Lisinopril-hydroCHLOROthia zide 20-12.5 MG 1 tablet Orally Once a day Active Social History Tobacco Use: Social History Observation Description Date Details (start date - stop date) Never Smoker NA - NA Tobacco Use/Smoking Question Answer Notes Patient is a nonsmoker Alcohol Screen Question Answer Notes Did you have a drink contain ing alcohol in the past year? Yes How often did you have a dri nk containing alcohol in the past year? 2 to 3 times a week (3 points) How many drinks did you have on a typical day when you were drinking in the past year? 1 or 2 drinks (0 point) How often did you have 6 or more drinks on one occasion in the past year? Never (0 point) Points 3 Interpretation Negative Problems Problem Type SNOMED Code ICD Code Onset Dates Problem Status W/U Status Risk Notes Problem 055205003 Colon cancer screening (Z12.11) Active confirmed Problem [id number] Encounter for other preprocedural examination (Z01.818) Active confirmed Plan Of Treatment Future Test Test Name Order Date COLONOSCOPY 03/03/2017 Insurance Providers Payer Name Payer Address Payer Phone Subscriber Number Group Number Insured Name Patient Relationship to Insured Coverage Start Date Coverage End Date [facility] [address] [place] [phone] [id number] DENNIS JUAREZ Self - patient is the insured Medical (General) History Medical History History ICD Code hypertension Surgical History Surgery Date(Month/Year) MASTOID INFECTION - AGE 17
[2025-04-03 06:34] LABS: MANUAL DIFF FLAG NO
[2025-04-03 07:23] LABS: Hematocrit 44.0 % (42.0-52.0); Hemoglobin 15.6 g/dl (14.0-18.0); Imm Gran Abs Auto 0.01 X10*3/uL (0.00-0.03); Imm Gran Pct Auto 0.2 % (0.0-0.4); Lymphocytes Absolute Auto 2.0 X10*3/uL (1.2-4.9); Mean Corpuscular HGB Conc 35.5 g/dl (31.0-36.0); Mean Corpuscular Hemoglobin 35.2 pg (27.0-33.0); Mean Corpuscular Volume 99.3 fL (80.0-98.0); NRBC Abs Auto 0.000 X10*3/uL (0.0-0.012); NRBC Pct Auto 0.0 /100WBC (0.0-0.2); Platelet Count 188 X10*3/uL (160-400); Red Blood Count 4.43 X10*6/uL (4.60-5.80); White Blood Count 5.8 X10*3/uL (4.8-10.8)
[2025-04-03 07:34] LABS: Appearance Urine Clear; Glucose Urine UA >=1000 mg/dL (Negative); PH 6.0 (5.0-9.0); Specific Gravity - Urine 1.025 (1.005-1.025); UMIC TRIGGER UA YES
[2025-04-03 07:49] LABS: Alanine Aminotransferase 24 U/L (0-40); Albumin Level 4.0 g/dL (3.5-5.0); Alkaline Phosphatase 79 U/L (39-117); Anion Gap 11 (12-20); Aspartate Amino Transferase 27 U/L (5-37); Blood Urea Nitrogen 16 mg/dL (9-16); Calcium 8.6 mg/dL (8.4-10.2); Carbon Dioxide 25 mmol/L (22-29); Chloride 109 mmol/L (96-108); Cholesterol 158 mg/dL (<200); Estimated Glomerular Filt Rate > 60; HDL Cholesterol 50 mg/dL (>40); Potassium 3.2 mmol/L (3.3-5.1); Sodium 142 mmol/L (135-145); Total Protein 7.0 g/dL (6.5-8.0); Triglycerides 93 mg/dL (<150)
[2025-04-03 08:06] LABS: Prostate Specific Antigen 4.30 ng/mL (<0.05-4.0)
[2025-04-03 08:22] LABS: Microalbum/Creatinine Ratio Ur 18.2 ug/mg cr (<30)
== END 2025-04-03 06:11 | disposition home or self-care (01) ==
LOC: HO.LAB 06:10
PROVIDERS: Absent Provider Family Medicine; PCP Family Medicine; Visit Provider Nurse Practitioner Family
DX: Z00.00 Encounter for general adult medical examination without abnormal findings (principal); I10 Essential (primary) hypertension; R97.20 Elevated prostate specific antigen [PSA]
CPT/HCPCS: 36415; 80053; 80061; 81001; 82043; 82570; 84153; 84443; 85025

== ENCOUNTER 2025-04-11 08:48 | Outpatient (AMB) | payer MEDICARE, SELFPAY ==
--- OUTSIDE RECORDS SUMMARY | 2025-04-11 09:03 | XMS_ITS | Patient Health Record ---
Author Organization [facility] Address [address] [place] [address] Care Team Providers Care Personal Trainer Name Role Phone Kimber(inactive) Aaron CHOPRA Primary [...] Problem Status W/U Status Risk Notes Problem [id number] Colon cancer screening (Z12.11) Active confirmed Problem [id number] Encounter for other preprocedural examination (Z01.818) Active confirmed Plan Of Treatment Future Test Test Name Order Date COLONOSCOPY 03/03/2017 Insurance Providers Payer Name Payer Address Payer Phone Subscriber Number Group Number Insured Name Patient Relationship to Insured Coverage Start Date Coverage End Date [facility] [address] [place] [phone] [id number] DENNIS JUAREZ Self - patient is the insured Medical (General) History Medical History History ICD Code hypertension Surgical History Surgery Date(Month/Year) MASTOID INFECTION - AGE 17
--- NOTE | 2025-04-11 09:07 | MHC.PC.OV ---
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 Allergies atorvastatin Allergy (Severe, Verified 04/11/25 09:11) cognitive decline Medication List - Last Reconciled 04/11/25 by Ronnie Burrows MD allopurinol 200 mg (2 x 100 mg) PO DAILY 90 days apixaban (Eliquis) 5 mg PO BID dapagliflozin propanediol (Farxiga) 5 mg PO DAILY ezetimibe 10 mg PO DAILY 90 days lisinopril-hydrochlorothiazide 20-12.5 mg 2 tabs PO DAILY metoprolol succinate ER 25 mg PO DAILY 90 days terazosin 5 mg PO BEDTIME 90 days trazodone 50 mg PO BEDTIME 90 days Tobacco use date assessed: 04/11/25 Fall risk assessment: No Falls in past year Last assessed Fall Risk: 04/11/25 Dental Screening Dental Screen Date: 04/11/25 Did you have a dental visit in the last 12 months?: Yes Did you have a dental problem in the last 6 months where you did not have access to dental care?: No Was dental information given to patient?: Patient has dentist HPI CPE with f/u labs and health maint HPI Details 69 y/o male presents for an extended exam with f/u labs and health maint. Labs drawn 04/03/25. Reviewed labs with pt. Potassium mildly low at 3.2 mmol/L. Triglycerides 93. TC 158. LDL 90. HDL 50. He is on ezetimibe 10mg daily. Prostate specific Ag 4.30. He is on terazosin which has been helping. Follows up with urology. Continues to f/u with [facility] for hemochromatosis. Blood pressure today 114/68, 98p. He is on lisinopril-HCTZ 20-12.5mg, metoprolol 25mg daily. HPI Comments History of Present Illness Details Documentation assistance for Ronnie Burrows MD, was provided by Darek Parr, Personnel Counselor on 04/11/2025 at 9:33 AM EST. Rosen, Dr. Burrows, have read, observed, and verified documentation. ?? [facility] Medical History Babesiosis Cardiomyopathy Hepatomegaly Hemochromatosis Gout Broken fibula Anticoagulant long-term use HTN (hypertension) PAF (paroxysmal atrial fibrillation) Surgical History S/P ablation of atrial fibrillation History of removal of skin mole History of laparoscopic cholecystectomy (04/04/23) History of liver biopsy History of esophagogastroduodenoscopy (EGD) Hx of colonoscopy History of right mastoidectomy Family History Father Diabetes Mother Afib Cardiac pacemaker Brother Afib Sister Afib Uterine cancer Social History Household Members: Spouse Housing: House Alcohol intake: current Alcohol intake frequency: a few times a week Alcohol type: beer Patient Tobacco Use Status: Never used Tobacco e-Cigarette/Vaping Use: Never Used Second Hand Smoke Exposure: No service: No Current occupational status: retired Current occupational exposures/hazards: No Cognitive needs: No Hearing needs: No Vision needs: No Questionnaire PHQ-9 Over the last 2 weeks, how often have you been bothered by any of the following problems? 1. Little interest or pleasure in doing things: not at all 2. Feeling down, depressed, or hopeless: not at all 3. Trouble falling or staying asleep, or sleeping too much: not at all 4. Feeling tired or having little energy: not at all 5. Poor appetite or overeating: not at all 6. Feeling bad about yourself - or that you are a failure or have let yourself or your family down: not at all 7. Trouble concentrating on things, such as reading the newspaper or watching television: not at all 8. Moving or speaking so slowly that other people could have noticed. Or the opposite - being so fidgety or restless that you have been moving around a lot more than usual: not at all 9. Thoughts that you would be better off or of hurting yourself in some way: not at all Total score: 0 Depression Screening Interpretation: Negative Depression Screening Done: Yes 98836 - PHQ-9 Billing: Yes Source: Developed by Drs. Addy Larson, Nancy Hernández, Star Goldstein and colleagues, with an educational danny from [employer]. Thrive Questionnaire Date Thrive assessed: 04/11/25 I am a: Patient What is your living situation today?: I have a steady place to live Within the past 12 months, did the food you bought not last and you didn't have the money to get more?: Never true Within the past 12 months, did you worry whether your food would run out before you got money to buy more?: Never true Do you have trouble paying for medicines?: No Do you have trouble getting transportation to medical appointments?: No Do you have trouble paying your heating and electricity bill?: No Do you have trouble taking care of your child, family member or friend?: No Do you have trouble with day-to-day activities such as bathing, preparing meals, shopping, managing finances, etc.?: No Are you currently unemployed and looking for a job?: No Are you interested in more education?: No Please select the resources that you would like help with: None Currently or been in a relationship where the following occur: No concerns reported THRIVE Score: 0 LEXA-7 AMB Questionnaire LEXA-7 Date LEXA - 7 assessed: 04/11/25 Feeling nervous, anxious, or on edge: 0 = Not at all Not being able to stop or control worryin = Not at all Worrying too much about different things: 0 = Not at all Trouble relaxin = Not at all Being so restless that it is hard to sit still: 0 = Not at all Becoming easily annoyed or irritable: 0 = Not at all Feeling afraid as if something awful might happen: 0 = Not at all Total LEXA-7 score (0-4 normal; 5-9 mild; 10-14 moderate; 15-21 severe): 0 Source: Developed by Drs. Addy Larson, Star Iraheta and colleagues, with an educational danny from [employer]. LEXA-7 Assessment Billing LEXA-7 Assessment Tool: LEXA-7 Assessment 06541 Review of Systems Const Denies chills, Denies fatigue, Denies fever(s), Denies headache(s) and Denies weakness Eyes Denies change in vision ENT Denies dizziness, Denies headache(s), Denies hearing loss, Denies nasal congestion, Denies sinus pain, Denies sinus pressure and Denies sore throat Card Denies chest pain, Denies lightheadedness, Denies dyspnea and Denies other (palpitations) Resp Denies cough, Denies dyspnea and Denies wheezing GI Denies abdominal pain, Denies melena, Denies hematochezia, Denies change in bowel habits, Denies dyspepsia and Denies nausea Denies hematuria and Denies dysuria Musc Denies abnormal gait, Denies myalgias, Denies arthralgias, Denies numbness and Denies tingling Skin/Breast Denies rash, Denies unusual bruising and Denies wounds Neuro Denies abnormal gait, Denies dizziness, Denies headache(s), Denies memory loss, Denies numbness, Denies Sensory deficit (Neuro), Denies tingling and Denies weakness Psych Denies anxiety, Denies depression and Denies memory loss Endo Denies cold intolerance, Denies fatigue, Denies heat intolerance, Denies polydipsia and Denies polyuria [place]/Lymph Denies easy bleeding and Denies easy bruising Aller/Immun Denies wheezing Physical exam (Primary Care) Vital Signs: Last Vital Signs Temp 97.8 F 04/11/25 09:14 Pulse 98 04/11/25 09:14 Resp 14 04/11/25 09:14 BP 114/68 04/11/25 09:14 Pulse Ox 96 04/11/25 09:14 Oxygen Delivery Method Room Air 04/11/25 09:14 BMI result Body Mass Index 30.3 Tobacco/Smoking Status: Tobacco use Status Tobacco use date assessed 04/11/25 04/11/25 09:17 Patient Tobacco Use Status Never used Tobacco 04/11/25 09:08 e-Cigarette/Vaping Use Never Used 04/11/25 09:08 PHQ-9: PHQ-9 Score PHQ-9: Total score 0 04/11/25 09:32 Depression Screening Interpretation: Negative Thrive Assessment: Date of Thrive Assessment Date Thrive assessed 04/11/25 04/11/25 09:17 Currently or been in a relationship where the following occur: No concerns reported Const General: no acute distress, well developed, alert and awake Nutritional Appearance: well nourished Orientation/consciousness: patient oriented x3 [facility] Head: Yes normocephalic and Yes atraumatic Ears: hearing grossly normal bilaterally and TM's normal bilaterally General nose exam: Normal external nose present and Normal nares present Mouth: Normal oral and palatal mucosa present and moist mucous membranes Teeth and gingiva: dentition normal Throat: Yes posterior oropharynx normal Eyes General: appearance normal, both eyes and all related structures Pupils: Equal, round and reactive pupils present and Pupil accommodation reflex normal EOM: EOMs intact bilaterally Neck Neck: Yes normal visual inspection, Yes no lymphadenopathy and Yes trachea midline Thyroid: Thyroid normal Carotids: no bruits Lymphatic: no lymphadenopathy noted Chest Chest palpation & inspection: normal inspection of the chest Resp Effort & Inspection: normal respiratory effort Auscultation: clear to auscultation bilaterally Cardio Rate: regular rate Rhythm: regular rhythm Heart sounds: S1 normal heart sound present, S2 normal heart sound present, no gallops, no murmurs and no rubs Bruits: no abdominal aortic bruits and no carotid bruits GI Palpation (GI): No Abdominal aortic bruit present, Soft to palpation, nontender, No hepatosplenomegaly present and No Rebound tenderness present Auscultation: normal bowel sounds General: Yes no CVA tenderness Back/Spine/Pelvis Back: no CVA tenderness Cervical Spine: cervical ROM normal and No Cervical spine tenderness Thoracic/Lumbar Spine: thoraco-lumbar ROM normal, No pain with thoraco-lumbar ROM, No thoracic spinal tenderness and No lumbar spinal tenderness Skin Lesions: no lesions Rashes: no rashes Trauma: no lacerations or abrasions Wounds: no wounds Nails: normal Neuro General: patient oriented x3 Cranial nerves: Yes Equal, round and reactive pupils present Cognition (Neuro): normal cognition Gait exam (Neuro): Normal gait present Motor exam (neuro): 5/5 motor strength present throughout Sensory Exam: No Sensory deficit (Neuro) Deep tendon reflexes (DTR's): Right patellar reflex intensity grade: 2+ and Left patellar reflex intensity grade: 2+ Extrem General: Yes normal to inspection and No edema Psych Appearance: grossly normal Affect: normal affect Attitude: cooperative Thought process: Normal thought process present Coding Level of Care Code Est Pt Level 4 (89569) Diagnoses HTN (hypertension) I10 PAF (paroxysmal atrial fibrillation) I48.0 Hypercholesterolemia E78.00 Hemochromatosis E83.119 Elevated PSA R97.20 Screening for colon cancer Z12.11 Common bile duct filling defect, non-specific R93.2 Screening for prostate cancer Z12.5 Gout M10.9 Adult general medical exam Z00.00 Additional Codes LEXA-7 Assessment Billing - LEXA-7 Assessment Tool: LEXA-7 Assessment 58735 ([id number]) PHQ-9 - 51373 - PHQ-9 Billing: Yes ([id number]) Assessment & Plan Assessment & Plan (1) HTN (hypertension): Code(s): I10 - Essential (primary) hypertension Category: Medical Plan: Blood pressure is controlled. Goal is less than 130/80 Continue current medications (2) PAF (paroxysmal atrial fibrillation): Code(s): I48.0 - Paroxysmal atrial fibrillation Category: Medical Plan: Patient has maintained appropriate rate and rhythm since his ablation Remains on Eliquis as recommended by Cardiology (3) Hypercholesterolemia: Code(s): E78.00 - Pure hypercholesterolemia, unspecified Category: Medical Plan: Lipids are well controlled with Zetia Continue current medication (4) Hemochromatosis: Code(s): E83.119 - Hemochromatosis, unspecified Category: Medical Plan: Patient is followed by Hematology-Oncology. He is getting therapeutic phlebotomy every 2 months. H&H is within normal range and iron levels were good at last check in January Follow-up with Heme-Onc as recommended (5) Elevated PSA: Code(s): R97.20 - Elevated prostate specific antigen [PSA] Category: Medical Plan: He is a mildly elevated Followed by urology Taking terazosin which is helping with incomplete emptying Did not tolerate bethanechol (6) Screening for colon cancer: Code(s): Z12.11 - Encounter for screening for malignant neoplasm of colon Category: Medical Plan: Followed by Dr. Reji Brown for next colonoscopy in 2 more years Up-to-date (7) Common bile duct filling defect, non-specific: Code(s): R93.2 - Abnormal findings on diagnostic imaging of liver and biliary tract Category: Medical Plan: S/p cholecystectomy Recent ERCP and does have some sludge in bile ducts. Follow-up with Gastroenterology as recommended (8) Screening for prostate cancer: Code(s): Z12.5 - Encounter for screening for malignant neoplasm of prostate Category: Medical Plan: PSA 4.30 Followed by urology (9) Gout: Code(s): M10.9 - Gout, unspecified Category: Medical Plan: Patient with history of gout and has been on allopurinol for the above years. He has had no recent flare-ups and would like to try weaning off of allopurinol Advised him to wean off slowly. Avoid trigger foods. Call or return to office if you have flare up (10) Adult general medical exam: Code(s): Z00.00 - Encounter for general adult medical examination without abnormal findings Category: Medical Plan: 69-year-old male presents for an extended exam Stable
[2025-04-11 09:14] VITALS: BP 114/68; PULSE 98; RESP 14; TEMP 36.6; O2SAT 96; BMI 30.3
== END 2025-04-11 09:47 | disposition home or self-care (01) ==
LOC: HO.HMCFM 08:49
PROVIDERS: PCP Family Medicine; Visit Provider Family Medicine
DX: I10 Essential (primary) hypertension (principal); I48.0 Paroxysmal atrial fibrillation; E78.00 Pure hypercholesterolemia, unspecified; E83.119 Hemochromatosis, unspecified; R97.20 Elevated prostate specific antigen [PSA]; Z12.11 Encounter for screening for malignant neoplasm of colon; R93.2 Abnormal findings on diagnostic imaging of liver and biliary tract; Z12.5 Encounter for screening for malignant neoplasm of prostate; M10.9 Gout, unspecified; Z00.00 Encounter for general adult medical examination without abnormal findings

== ENCOUNTER → 2025-04-11 08:48 | Outpatient (BNVA) | payer MEDICARE, SELFPAY | PROVIDERS: PCP Family Medicine; Visit Provider Family Medicine | DX: Z00.00 Encounter for general adult medical examination without abnormal findings (principal); M10.9 Gout, unspecified; R63.2 Polyphagia; R97.20 Elevated prostate specific antigen [PSA]; E83.119 Hemochromatosis, unspecified; E78.00 Pure hypercholesterolemia, unspecified; I48.0 Paroxysmal atrial fibrillation; I10 Essential (primary) hypertension | CPT/HCPCS: 96127; 99212 ==

== ENCOUNTER 2025-04-18 08:35 | Outpatient (AMB) | payer MEDICARE, SELFPAY ==
--- NOTE | 2025-04-18 08:36 | MHC.OFFVIS ---
Intake Visit Reasons: 3M follow up/ PVR Intake Note: Patient presents today for follow up visit on: incomplete bladder emptying Urology Medications: terazosin Blood Thinner: Eliquis PVR: 417ml's Lna Required: No Accompanied by: Self / Same As Patient Allergies atorvastatin Allergy (Severe, Verified 04/18/25 09:16) cognitive decline Medication List - Last Reconciled 04/18/25 by Jodee Irizarry, [facility]- apixaban (Eliquis) 5 mg PO BID dapagliflozin propanediol (Farxiga) 5 mg PO DAILY ezetimibe 10 mg PO DAILY 90 days lisinopril-hydrochlorothiazide 20-12.5 mg 2 tabs PO DAILY metoprolol succinate ER 25 mg PO DAILY 90 days terazosin 5 mg PO BEDTIME 90 days trazodone 50 mg PO BEDTIME 90 days HPI Comments Details: Price is a pleasant 69-year-old male patient of Dr. Burrows. He has a past medical history of cardiomyopathy follows with Dr. Luna, hepatomegaly, hemochromatosis follows with Dr. Christianson, gout, hypertension, paroxysmal atrial fibrillation on anticoagulation. He presents to the office today for follow-up of his incomplete bladder emptying/retention, overflow incontinence and elevated PSA. In discussion with the patient today he reports to be doing and feeling well. He reports compliance with terazosin as prescribed however was unable to refill his finasteride as for some reason it was discontinued. He has previously trialed bethanechol however was experiencing abdominal fullness and was having difficulty with urination. Therefore, this has since been discontinued. In office urinalysis results reviewed with the patient today. PVR today 417 mL although elevated this is significantly decreased from previous postvoid residuals of 1200 and 800mls. We did discuss that although PVR is decreasing it is still elevated. We did discussed further treatment options to include CIC verses Sutton catheter. We discussed in office cystoscopy for further assessment evaluation. However, patient continues to decline all treatment options at this time although we discussed potential for significant consequences in delays and treatment. He reports feeling no bothersome urinary issues or concerns. 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 Recent PSA results reviewed with the patient today. PSAs are as follows: PSAs: 05/23 2.1, 05/24 3.1, 11/26 5.7, 12/24 5.9, 03/26 5.6 PSA free 14%, 01/25 3.4, 04/26 4.3 We did discussed slight increase in PSA however patient has not been on finasteride. Will refill. Previous retroperitoneal ultrasound 04/25 bilateral kidneys with no calculi, lesions, and or hydronephrosis. The bladder is distended and normal. Bilateral jets are demonstrated. Pre void bladder volume is approximately 1200 mL. Postvoid bladder volume is approximately a 1000 mL. Prostate measures approximately 70 mL. He denies urinary urgency, urinary frequency, incontinence, nocturia, hematuria, dysuria, foul smelling urine, changes to urinary stream, flank pain, fever, and or chills. Discussed correlation of incomplete bladder emptying with elevated PSA. We did discussed further treatment options of elevated PSA in risks and benefits of these treatment options. He otherwise offers no other issues or concerns at this time. [facility] Medical History Babesiosis Cardiomyopathy Hepatomegaly Hemochromatosis Gout Broken fibula Anticoagulant long-term use HTN (hypertension) PAF (paroxysmal atrial fibrillation) Surgical History S/P ablation of atrial fibrillation History of removal of skin mole History of laparoscopic cholecystectomy (04/04/23) History of liver biopsy History of esophagogastroduodenoscopy (EGD) Hx of colonoscopy History of right mastoidectomy Family History Father Diabetes Mother Afib Cardiac pacemaker Brother Afib Sister Afib Uterine cancer Social History Household Members: Spouse Housing: House Alcohol intake: current Alcohol intake frequency: a few times a week Alcohol type: beer Patient Tobacco Use Status: Never used Tobacco e-Cigarette/Vaping Use: Never Used Second Hand Smoke Exposure: No service: No Current occupational status: retired Current occupational exposures/hazards: No Cognitive needs: No Hearing needs: No Vision needs: No Review of Systems Const Reports no additional complaints Eyes Reports no additional complaints ENT Reports no additional complaints Card Reports as per HPI Resp Reports no additional complaints GI Reports as per HPI Reports as per HPI Musc Reports no additional complaints Neuro Reports no additional complaints Psych Reports no additional complaints Endo Reports no additional complaints [place]/Lymph Reports as per HPI Aller/Immun Reports no additional complaints Physical Exam Const General: cooperative, healthy appearing, comfortable, no acute distress, well developed, alert and awake Orientation/consciousness: patient oriented x3 Limitations: no limitations HEENT Head: Yes normal to inspection, Yes normocephalic and Yes atraumatic Ears: hearing grossly normal bilaterally Eyes General: appearance normal, both eyes and all related structures Neck Neck: Yes normal visual inspection and Yes trachea midline Chest Chest palpation & inspection: normal inspection of the chest Resp Effort & Inspection: normal respiratory effort and able to speak in complete sentences Cardio Rate: regular rate GI Inspection: Yes normal to inspection General: Yes no CVA tenderness Back/Spine/Pelvis Back: no CVA tenderness Skin General skin exam: no rashes or lesions noted Neuro General: patient oriented x3 Extrem General: Yes normal to inspection Psych Appearance: grossly normal and well kempt Mental Status: mental status grossly normal Speech and movement: Normal speech and movement present and Clear speech present Affect: normal affect Attitude: cooperative Thought process: Normal thought process present Thought content: Normal thought content present Insight: Fair insight present (Psych) Judgement: Fair judgement present (Psych) Office Procedures Post Void Residual Post Residual Void Post Void Residual (PVR): 417 [id number] Void Residual by ultrasound Results AMB Urinalysis, Automated UA Leukoctes 0 Fabien/uL Last Edit by Andrew Ren [facility] on 04/18/25 08:54 UA Nitrite Last Edit by Andrew Ren [facility] on 04/18/25 08:54 UA Urobilinogen 0.2 mg/dL Last Edit by Andrew Ren [facility] on 04/18/25 08:54 UA Protein 0 mg/dL Last Edit by Andrew Ren [facility] on 04/18/25 08:54 UA pH 6.0 Last Edit by Andrew Ren [facility] on 04/18/25 08:54 UA Blood 0 Cristi/uL Last Edit by Andrew Ren [facility] on 04/18/25 08:54 UA Specific [place] 1.015 Last Edit by Andrew Ren [facility] on 04/18/25 08:54 UA Ketone Negative Last Edit by CLAIR Banks on 04/18/25 08:54 UA Bilirubin 0 mg/dL Last Edit by CLAIR Banks on 04/18/25 08:54 UA Glucose 500 mg/dL Last Edit by CLAIR Banks on 04/18/25 08:54 Results Reviewed Results Reviewed: Laboratory Last Values Urine pH (Auto) 6.0 04/18/25 08:40 Specific [place] (Auto) 1.015 04/18/25 08:40 Urine Protein (Auto) 0 mg/dL 04/18/25 08:40 Glucose (UA)(Auto) 500 mg/dL 04/18/25 08:40 Urine Ketones (Auto) Negative 04/18/25 08:40 Urine Blood (Auto) 0 Cristi/uL 04/18/25 08:40 Urine Bilirubin (Auto) 0 mg/dL 04/18/25 08:40 Urine Urobilinogen (Auto) 0.2 mg/dL 04/18/25 08:40 Leukocyte Esterase (Auto) 0 Fabien/uL 04/18/25 08:40 Assessment & Plan Assessment & Plan (1) Elevated PSA: Code(s): R97.20 - Elevated prostate specific antigen [PSA] Category: Medical (2) Incomplete bladder emptying: Code(s): R33.9 - Retention of urine, unspecified Category: Medical (3) Urinary retention: Code(s): R33.9 - Retention of urine, unspecified Category: Medical Plan In office urinalysis results reviewed with the patient today. PVR 417 mL. Recent PSA results reviewed with the patient today; as noted above. Restart finasteride; refill provided Continue terazosin. We did discussed further treatment options of elevated PSA as well as postvoid residual in risks and benefits of these treatment options. Will continue with finasteride and terazosin at this time. We did discussed in office cystoscopy for further assessment evaluation however patient declines at this time. He is happy with his current voiding parameters. Will obtain PSA in 4 months. Follow-up in 4 months with PSA and PVR to be completed prior; or sooner with any issues, concerns, and or questions. Orders: Orders AMB Urinalysis Automated Today Z13.9 - Encounter for screening, unspecified AMB Post Void Residual by ultrasound Today R33.9 - Retention of urine, unspecified PSA,Total (Free>4and<10) 3 Months R33.9 - Retention of urine, unspecified, R97.20 - Elevated prostate specific antigen [PSA] Medications: Refilled finasteride 5 mg PO DAILY 90 tabs 1RF 90 days N13.8 - Other obstructive and reflux uropathy, N40.1 - Benign prostatic hyperplasia with lower urinary tract symptoms, R33.9 - Retention of urine, unspecified terazosin 5 mg PO BEDTIME 90 caps 1RF 90 days N40.1 - Benign prostatic hyperplasia with lower urinary tract symptoms, R35.0 - Frequency of micturition Patient Instructions: The patient had an opportunity to ask questions regarding the treatment plan. All questions were answered. Physical exam, labs, and imaging were discussed and reviewed in detail. As well as risks, benefits, and discussion of treatment choices. No major barriers to understanding were identified. The patient expressed understanding and agreement with the above treatment plan. The patient was made aware they should contact our office by phone for worsening of their current condition, the appearance of new symptoms, or with any questions or concerns. Compliance is encouraged with any medications and follow up testing that is ordered. It is a privilege to be allowed the opportunity to participate in? your urological care.? Again, if you have any questions or concerns If you have any questions or concerns please do not hesitate to contact me. The office is [phone]. This note is constructed using voice recognition software. While every effort has been made to ensure accuracy nurse outreach case manager errors may have been included. Yours sincerely, NELDA Pina Coding Level of Care Code Est Pt Level 3 (58603) Complex EM visit Add On G2211 Diagnoses Elevated PSA R97.20 Incomplete bladder emptying R33.9 Urinary retention R33.9 CPT Codes Post Residual Void - PVR CPT Code: 28850-Pndl Void Residual by ultrasound ([id number])
--- OUTSIDE RECORDS SUMMARY | 2025-04-18 08:42 | XMS_ITS | Patient Health Record ---
Author Organization [facility] Address [address] [place] [address] Care Team Providers Care Recyclable Materials Sorter Name Role Phone Kimber(inactive) Aaron CHOPRA Primary Care Provider U linden Washington Jr Ej Unavailable Reason For Referral No Information Medications [...] Problem Status W/U Status Risk Notes Problem [id number] Colon cancer screening (Z12.11) Active confirmed Problem [id number] Encounter for other preprocedural examination (Z01.818) Active confirmed Plan Of Treatment Future Test Test Name Order Date COLONOSCOPY 03/03/2017 Insurance Providers Payer Name Payer Address Payer Phone Subscriber Number Group Number Insured Name Patient Relationship to Insured Coverage Start Date Coverage End Date [facility] [address] [place] [address] [id number] DENNIS JUAREZ Self - patient is the insured Medical (General) History Medical History History ICD Code hypertension Surgical History Surgery Date(Month/Year) MASTOID INFECTION - AGE 17
== END 2025-04-18 09:18 | disposition home or self-care (01) ==
LOC: HO.HUSH 08:35
PROVIDERS: PCP Family Medicine; Visit Provider Nurse Practitioner Family
DX: R97.20 Elevated prostate specific antigen [PSA] (principal); R33.9 Retention of urine, unspecified; Z13.9 Encounter for screening, unspecified
CPT/HCPCS: 99213; G2211

== ENCOUNTER → 2025-04-18 08:35 | Outpatient (BNVA) | payer MEDICARE, SELFPAY | PROVIDERS: PCP Family Medicine; Visit Provider Nurse Practitioner Family | DX: N40.1 Benign prostatic hyperplasia with lower urinary tract symptoms (principal); R33.9 Retention of urine, unspecified; N13.8 Other obstructive and reflux uropathy; R35.0 Frequency of micturition; R97.20 Elevated prostate specific antigen [PSA]; Z79.01 Long term (current) use of anticoagulants; Z79.899 Other long term (current) drug therapy | CPT/HCPCS: 51798; 81003; 99212 ==

== ENCOUNTER 2025-05-01 10:03 | Outpatient (AMB) | payer MEDICARE, SELFPAY ==
--- NOTE | 2025-05-01 10:21 | MHC.OFFVIS ---
Vital Signs 05/01/25 10:26 Height 6 ft Weight 220 lb 7.396 oz BMI 29.9 BP 120/70 Blood Pressure Location Lt brachial Position Sitting Pulse 83 Intake Visit Reasons: 4m follow up Intake Note: 4 month follow-up feeling good Assembly Machine Tender Required: No Allergies atorvastatin Allergy (Severe, Verified 04/18/25 09:16) cognitive decline Medication List - Last Reconciled 05/01/25 by Gonzalo Luna MD apixaban (Eliquis) 5 mg PO BID dapagliflozin propanediol (Farxiga) 5 mg PO DAILY ezetimibe 10 mg PO DAILY 90 days finasteride 5 mg PO DAILY 90 days lisinopril-hydrochlorothiazide 20-12.5 mg 2 tabs PO DAILY metoprolol succinate ER 25 mg PO DAILY 90 days terazosin 5 mg PO BEDTIME 90 days trazodone 50 mg PO BEDTIME 90 days HPI Comments Details: Pleasant 69-year-old gentleman here for follow-up. He has background history of paroxysmal atrial fibrillation. He has been on apixaban and flecainide. Clinically doing well and has no significant palpitations at this stage. No chest pain or shortness breath. He was complaining of right upper quadrant pain and was referred for ultrasound. This showed hepatosplenomegaly and he was referred to GI. His workup has shown concern for iron deposits in the liver but he is heterozygous for hemochromatosis. His brother has been diagnosed with hemochromatosis and is actually undergoing bloodletting. He continues to do well and has no chest discomfort or shortness of breath and is not experiencing any physical limitations but his echocardiogram performed in September is showing that his ejection fraction is 48%. This is lower than before. Given the concern for iron deposition and heterozygous hemochromatosis with question is that is there iron infiltration of myocardium also. Tolerating meds otherwise. Cardiac MRI was done which showed dilated left ventricle with mild global hypokinesis LVEF 48%. This small focal near transmural delayed enhancement in the distal inferior wall as well as small size near transmural delayed enhancement at the mid inferior septum and possibly at the basal anterior septum. Suspect fibrosis, dilated cardiomyopathy, elevated right heart pressures, less likely small infarct. The sequence for assessing iron deposits in the myocardium was incorrectly done on this exam. Continues to be asymptomatic and physically active. 02/15/2024: He returns for follow-up. He had MRI to look for hemochromatosis and no evidence of hemochromatosis were noticed. 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 He has received antibiotics for that. He also has an elevated PSA and is seeing Urology. He is asking about ablation as his friends have done that before with good success. Denying any palpitations otherwise and no symptoms as before. 05/14/24: He is here for f/u. He had repeat echo 03/13/24 which showed EF 50-55 %. basal inf hypokinesis and mild RV dilation. Severe RA dilation. He has been experiencing urinary issues due to BPH and was given flomax which he could not tolerate and was given Terazosin. He also tried Farxiga but became dizzy and he stopped taking it. He has no CP but has been feeling fatigued. He will be seeing Dr Chaves for ablation. 08/29/2024: He returns for follow-up. He is undergoing ablation for atrial fibrillation on Tuesday. Has been taking medications regularly. No significant complaints on follow-up. He is taking Farxiga and has been tolerating it well. 12/26/2024: He is here for follow-up. He had ablation and has been doing well. He is off the flecainide at this stage. He had a discussion with Dr. Chaves about stopping Eliquis. He advised him to monitor with Kardia device. The patient has bought an [employer] watch and has been monitoring his rhythm with that. He has been doing well after getting off flecainide and after ablation. He is undergoing endoscopy and endoscopic ultrasound to assess for ?bile duct stone in January. 05/01/2025: He is here for follow-up. Post ablation he was taken off the flecainide. He has been doing well. He is playing pickleball without any complaints. No concerns for bleeding. Tolerating medicines well. [facility] Medical History Babesiosis Cardiomyopathy Hepatomegaly Hemochromatosis Gout Broken fibula Anticoagulant long-term use HTN (hypertension) PAF (paroxysmal atrial fibrillation) Surgical History S/P ablation of atrial fibrillation History of removal of skin mole History of laparoscopic cholecystectomy (04/04/23) History of liver biopsy History of esophagogastroduodenoscopy (EGD) Hx of colonoscopy History of right mastoidectomy Family History Father Diabetes Mother Afib Cardiac pacemaker Brother Afib Sister Afib Uterine cancer Social History Household Members: Spouse Housing: House Alcohol intake: current Alcohol intake frequency: a few times a week Alcohol type: beer Patient Tobacco Use Status: Never used Tobacco e-Cigarette/Vaping Use: Never Used Second Hand Smoke Exposure: No service: No Current occupational status: retired Current occupational exposures/hazards: No Cognitive needs: No Hearing needs: No Vision needs: No Review of Systems Const Denies chills, Denies fatigue, Denies fever(s), Denies frequent falls, Denies weakness, Denies weight gain and Denies weight loss ENT Denies dizziness Card Denies chest pain, Denies leg edema, Denies lightheadedness, Denies palpitations, Denies dyspnea, Denies dyspnea on exertion, Denies orthopnea and Denies other (loss of consciousness) Resp Denies cough, Denies dyspnea and Denies dyspnea on exertion GI Denies hematochezia and Denies change in stool character Musc Denies abnormal gait, Denies muscle weakness, Denies numbness, Denies radiating pain into limb and Denies tingling Neuro Denies abnormal gait, Denies dizziness, Denies frequent falls, Denies numbness, Denies tingling and Denies weakness Endo Denies fatigue and Denies palpitations Physical Exam Vital Signs: Last Vital Signs Pulse 83 05/01/25 10:26 BP 120/70 05/01/25 10:26 BMI result Body Mass Index 29.9 GENERAL APPEARANCE: in no acute distress, pleasant. NECK: no carotid bruit, no jugular venous distention. SKIN: no suspicious lesions, warm and dry. HEART: no murmurs, regular rate and rhythm. LUNGS: clear to auscultation bilaterally. ABDOMEN: soft, nontender. EXTREMITIES: no edema. PERIPHERAL PULSES: equal. NEUROLOGIC: No gross deficits, AAO X 3 Assessment & Plan Assessment & Plan (1) PAF (paroxysmal atrial fibrillation): Code(s): I48.0 - Paroxysmal atrial fibrillation Category: Medical (2) HTN (hypertension): Code(s): I10 - Essential (primary) hypertension Category: Medical (3) Cardiomyopathy: Code(s): I42.9 - Cardiomyopathy, unspecified Category: Medical Plan Pleasant 69 year gentleman who is here for follow-up. He has background history of nonischemic cardiomyopathy and paroxysmal atrial fibrillation. He was on flecainide and Eliquis and underwent ablation and is now off the flecainide. Clinically has been doing well. He has lost ejection fraction is 50 55% in March of 2024. Continue same medications for now. He will see us back in 6 months. Thank you for allowing me to participate in the care of your patient. Please feel free to contact me if you have any questions. Coding Level of Care Code Est Pt Level 4 (28097) Diagnoses PAF (paroxysmal atrial fibrillation) I48.0 HTN (hypertension) I10 Cardiomyopathy I42.9
[2025-05-01 10:26] VITALS: BP 120/70; PULSE 83; BMI 29.9
--- OUTSIDE RECORDS SUMMARY | 2025-05-01 10:49 | XMS_ITS | Encounter Summary ---
Author Organization [facility] Address [address] [place] [address] Phone Care Team Providers Care Immigration Lawyer Name Role Phone Ronnie Burrows MD Primary Care Provider Encounter Details Date Type Department Care Team (Late st Contact Info) Description 02/11/2023 Procedure Pass [facility], [address] [address] Social History Tobacco Use Types Packs/Day Years Used Date Smoking Tobacco: Never Assessed Education Answer Date Recorded Are you interested in more education? Not on hiral e 02/11/2023 Are you concerned about learning? Not on file 02/11/2023 No 02/11/2023 No 02/11/2023 Sex and Gender Information Value Date Recorded Sex Assigned at Male 10/28/2022 9:24 AM EST Legal Sex Male 9:18 AM EST Gender Identity Male 10/28/2022 9:20 AM EST Sexual Orientation Straight 10/28/2022 9: 24 AM EST documented as of this encounter Plan of Treatment Not on file documented as of this encounter Visit Diagnoses Not on filedocumented in this encounter Care Teams Immigration Lawyer Relationship Specialty Start Date End Date Ronnie Burrows MD [address] [place] [address] PCP - General Family Medicine 10/28/22 documented as of this encounter Additional Source Comments The information contained in this document represents components of the legal health record. It is not the complete legal health record.[facility]
--- OUTSIDE RECORDS SUMMARY | 2025-05-01 10:49 | XMS_ITS | Patient Health Record ---
Author Organization [facility] Address [address] [place] [address] Care Team Providers Care Senior Hardware Design Engineer Name Role Phone Kimber(inactive) Aaron CHOPRA Primary Care Provider U Ej Garcia Jr Unavailable [phone] Reason For Referral No Information Medications Medication [...] Problem Status W/U Status Risk Notes Problem [id number] Colon cancer screening (Z12.11) Active confirmed Problem 40706535 Encounter for other preprocedural examination (Z01.818) Active confirmed Plan Of Treatment Future Test Test Name Order Date COLONOSCOPY 03/03/2017 Insurance Providers Payer Name Payer Address Payer Phone Subscriber Number Group Number Insured Name Patient Relationship to Insured Coverage Start Date Coverage End Date [facility] [address] [place] [address] [id number] DENNSI JUAREZ Self - patient is the insured Medical (General) History Medical History History ICD Code hypertension Surgical History Surgery Date(Month/Year) MASTOID INFECTION - AGE 17
== END 2025-05-01 11:05 | disposition home or self-care (01) ==
LOC: HO.HCS 10:04
PROVIDERS: PCP Family Medicine; Visit Provider Internal Medicine Cardiovascular Disease
DX: I48.0 Paroxysmal atrial fibrillation (principal); I10 Essential (primary) hypertension; I42.9 Cardiomyopathy, unspecified
CPT/HCPCS: 99214

== ENCOUNTER → 2025-05-01 10:03 | Outpatient (BNVA) | payer MEDICARE, SELFPAY | PROVIDERS: PCP Family Medicine; Visit Provider Internal Medicine Cardiovascular Disease | DX: I48.0 Paroxysmal atrial fibrillation (principal); I42.9 Cardiomyopathy, unspecified; I10 Essential (primary) hypertension | CPT/HCPCS: 99212 ==

== ENCOUNTER 2025-05-29 08:58 | Outpatient (REF) | payer MEDICARE, SELFPAY ==
--- OUTSIDE RECORDS SUMMARY | 2025-05-29 09:26 | XMS_ITS | Patient Health Record ---
Author Organization [facility] Address [address] [place] [address] Care Team Providers Care Carbon Accountant Name Role Phone Kimber(inactive) Aaron CHOPRA Primary [...] Problem Status W/U Status Risk Notes Problem [id number] Colon cancer screening (Z12.11) Active confirmed Problem [id number] Encounter for other preprocedural examination (Z01.818) Active confirmed Plan Of Treatment Future Test Test Name Order Date COLONOSCOPY 03/03/2017 Insurance Providers Payer Name Payer Address Payer Phone Subscriber Number Group Number Insured Name Patient Relationship to Insured Coverage Start Date Coverage End Date [facility] [address] [facility] [place] [phone] [id number] DENNIS JUAREZ Self - patient is the insured Medical (General) History Medical History History ICD Code hypertension Surgical History Surgery Date(Month/Year) MASTOID INFECTION - AGE 17
--- OUTSIDE RECORDS SUMMARY | 2025-05-29 09:26 | XMS_ITS | Clinical Summary ---
Author Organization [facility] Address [address] [place] [address] Phone Care Team Providers Care Transcribing Operator Head Name Role Phone Ronnie Burrows MD Primary Care Provider Social History Tobacco Use Types Packs/Day Years Used Date Smoking Tobacco: Never Assessed Education Answer Date Recorded Are you interested in more education? Not on hiral e 02/11/2023 Are you concerned about learning? Not on file 02/11/2023 No 02/11/2023 No 02/11/2023 Digital Access Answer Date Recorded No 02/25/2023 No 02/25/2023 No 02/25/2023 Reliable internet access at home? Not on file 02/25/2023 Device with a working camera? Not on file Sex and Gender Information Value Date Recorded Sex Assigned at Male 10/28/2022 9:24 AM EST Legal Sex Male 9:18 AM EST Gender Identity Male 10/28/2022 9:20 AM EST Sexual Orientation Straight 10/28/2022 9: 24 AM EST Plan of Treatment Health Maintenance Due Date Last Done Comments Adult Td,Tdap Booster 1956 LIPID PANEL 1956 DEPRESSION SCREENING 1968 SMOKING Hx and SMOKELESS TOB ACCO SCREENING 1969 HEPATITIS C SCREENING 1974 COLOGUARD 2001 COLONOSCOPY 2001 COLORECTAL CANCER SCREENING 2001 FIT TEST 2001 FOBT 2001 SIGMOIDOSCOPY 2001 VIRTUAL COLONOSCOPY 2001 PNEUMOCOCCAL VACCINES (50+ y ears) (1 of 1 - PCV) 2006 ZOSTER VACCINES (1 of 2) 2006 COVID-19 VACCINE (1 - 2023-2 5 season) 2024 RSV VACCINE (1 - 1-dose 75+ series) 2031 HEPATITIS A VACCINES Aged Out No long er eligible based on patient's age to complete this topic HIB VACCINES Aged Out No longer eligi ble based on patient's age to complete this topic MENINGOCOCCAL VACCINES (ACWY) Aged Out No longer eligible based on patient's age to complete this topic MENINGOCOCCAL VACCINES (B) Aged Out N o longer eligible based on patient's age to complete this topic Medical Devices Not on file Insurance MEDICARE PART A & B [employer] MEDEX SUPPLEMENT MEDICARE PART A & B [employer] CROSS MEDEX SUPPLEMENT MEDICARE PART A & B [employer] MEDEX SUPPLEMENT MEDICARE PART A & B [employer] MEDEX SUPPLEMENT MEDICARE PART A & B [facility] MEDEX SUPPLEMENT MEDICARE PART A & B Care Teams Transcribing Operator Head Relationship Specialty Start Date End Date Ronnie Burrows MD [address] [place] [address] PCP - General Family Medicine 10/28/22 Additional Source Comments The information contained in this document represents components of the legal health record. It is not the complete legal health record.[facility]
--- OUTSIDE RECORDS SUMMARY | 2025-05-29 09:26 | XMS_ITS | Encounter Summary ---
Author Organization [facility] Address [address] [facility] [facility] [address] [place] [address] Phone Care Team Providers Care Fitter Type Bar And Segment Name Role Phone Ronnie Burrows MD Primary Care Provider Encounter Details Date Type Department Care Team (Late st Contact Info) Description 02/11/2023 Procedure Pass [facility], [address] [address] Social History Tobacco Use Types Packs/Day Years [...] on filedocumented in this encounter Care Teams Fitter Type Bar And Segment Relationship Specialty Start Date End Date Ronnie Burrows MD [address] [place] [address] PCP - General Family Medicine 10/28/22 documented as of this encounter Additional Source Comments The information contained in this document represents components of the legal health record. It is not the complete legal health record.[facility]
== END 2025-05-29 08:59 | disposition home or self-care (01) ==
LOC: HO.BBR 08:58
PROVIDERS: PCP Family Medicine; Visit Provider Internal Medicine
DX: Z13.89 Encounter for screening for other disorder (principal)

== ENCOUNTER 2025-06-17 08:48 | Outpatient (REF) | payer MEDICARE, SELFPAY ==
--- NOTE | ~2025-06-17 | US_ITS ---
EXAMINATION: US ABDOMEN LIMITED WITH LIVER ELASTOGRAPHY HISTORY: R16.0 - Hepatomegaly, not elsewhere classified TECHNIQUE: Real-time grayscale ultrasound imaging of the right upper quadrant was performed and images were reviewed. COMPARISON: Comparison is made with the prior examination dated 12/06/2024. FINDINGS: Liver: The right lobe of the liver measures 19.2 cm in size. The left lobe of the liver measures 10.2 cm in size. The liver demonstrates normal homogeneous echotexture. No focal mass or intrahepatic biliary ductal dilatation is identified. There is normal hepatopedal flow in the portal vein. Ultrasound elastography of the liver was performed with 10 separate measurements of the liver parenchyma with the patient in the supine position. Measurements were obtained approximately 2 cm below Jg's capsule and perpendicular to the capsule. The median shear wave velocity is 1.50 m/s. The interquartile range/median (IQR/median) is 0.11. Gallbladder and biliary tree: The gallbladder is surgically absent. The common bile duct is normal in caliber measuring 6 mm. Right Kidney: The right kidney measures 12.2 cm in length. The right kidney is unremarkable, without evidence of masses, hydronephrosis, or calculi. Pancreas: The pancreatic head, neck, and body are unremarkable. The pancreatic tail is obscured by bowel gas. Abdominal aorta and inferior vena cava: The visualized portions of the abdominal aorta and inferior vena cava are normal in caliber. There is no free fluid in the right upper quadrant. US/US abdomen walters w elastography IMPRESSION: Hepatomegaly. The median shear wave velocity in the liver is 1.50 m/s, corresponding to a median liver stiffness of 6.89 kPa. The IQR/median value is 0.11. This is indicative of a quality data set. Findings are indicative of a low elastography value which rules out advanced chronic liver disease in asymptomatic patients. REFERENCE: Society of Radiologists in Ultrasound Liver Stiffness Thresholds (2020): LIVER STIFFNESS THRESHOLDS: *Shear wave velocity less than 1.3 m/s (Liver Stiffness equal or less than 5 kPa): High probability of being normal. *Shear wave velocity less than 1.7 m/s (Liver Stiffness less than 9 kPa): In the absence of other known clinical signs, rules out compensated advanced chronic liver disease. *Shear wave velocity between 1.7-2.1 m/s (Liver Stiffness 9-13 kPa): Suggestive of compensated advanced chronic liver disease but need further test for confirmation. *Shear wave velocity between 2.1-2.4 m/s (Liver Stiffness 13-17 kPa): Rules in compensated advanced chronic liver disease. *Shear wave velocity greater than 2.4 m/s (Liver Stiffness over 17 kPa): Suggestive of clinically significant portal hypertension. QUALITY OF DATA SET: *IQR/Median value equal or less than 0.15 implies a quality data set. *IQR/Median value over 0.15 implies a poor quality data set. SIGNIFICANT CHANGE FROM PRIOR EXAM: Significant change if liver stiffness measurement is 10% or greater from prior exam. OTHER CONSIDERATIONS: The stage of liver fibrosis may be overestimated in the setting of acute hepatitis, liver inflammation, elevated liver function tests, hepatic vascular congestion, obstructive cholestasis, non-fasting state, and infiltrative diseases such as amyloidosis and lymphoma. In some patients with NAFLD, the liver stiffness thresholds for compensated advanced chronic liver disease may be lower. In causes other than viral hepatitis and NAFLD, liver stiffness thresholds are not well established. Electronically signed by: Addy Barajas MD 06/17/2025 10:00 AM EDT
--- OUTSIDE RECORDS SUMMARY | 2025-06-17 10:03 | XMS_ITS | Encounter Summary ---
Author Organization [facility] Address [address] [facility] [address] [address] [place] [address] Phone Care Team Providers Care Juvenile Counselor Name Role Phone Ronnie Burrows MD Primary Care Provider Encounter Details Date Type Department Care Team (Late st Contact Info) Description 02/11/2023 Procedure Pass [facility], [address] [address] Social History Tobacco Use Types Packs/Day Years [...] on filedocumented in this encounter Care Teams Juvenile Counselor Relationship Specialty Start Date End Date Ronnie Burrows MD [address] [place] [address] PCP - General Family Medicine 10/28/22 documented as of this encounter Additional Source Comments The information contained in this document represents components of the legal health record. It is not the complete legal health record.[facility]
--- OUTSIDE RECORDS SUMMARY | 2025-06-17 10:04 | XMS_ITS | Patient Health Record ---
Author Organization [facility] Address [address] [place] [address] Care Team Providers Care Production Stage Manager Name Role Phone Kimber(inactive) Aaron CHOPRA Primary [...] Problem Status W/U Status Risk Notes Problem [id number] Colon cancer screening (Z12.11) Active confirmed Problem [id number] Encounter for other preprocedural examination (Z01.818) Active confirmed Plan Of Treatment Future Test Test Name Order Date COLONOSCOPY 03/03/2017 Insurance Providers Payer Name Payer Address Payer Phone Subscriber Number Group Number Insured Name Patient Relationship to Insured Coverage Start Date Coverage End Date [facility] [address] [place] [address] [id number] DENNIS JUAREZ Self - patient is the insured Medical (General) History Medical History History ICD Code hypertension Surgical History Surgery Date(Month/Year) MASTOID INFECTION - AGE 17
--- OUTSIDE RECORDS SUMMARY | 2025-06-17 10:04 | XMS_ITS | Clinical Summary ---
Author Organization [facility] Address [address] [facility] [address] [place] [address] Phone Care Team Providers Care Bumper And Painter Name Role Phone Ronnie Burrows MD Primary [...] 2006 ZOSTER VACCINES (1 of 2) 2006 INFLUENZA VACCINE (#1) 2025 COVID-19 VACCINE (1 - 2023-2 5 season) 2025 RSV VACCINE (1 - 1-dose 75+ series) [...] topic Medical Devices Not on file Insurance [place] [address] MEDEX SUPPLEMENT MEDICARE PART A & B [employer] MEDEX SUPPLEMENT MEDICARE PART A & B [employer] MEDEX SUPPLEMENT MEDICARE PART A & B [employer] MEDEX SUPPLEMENT MEDICARE PART A & B [employer] MEDEX SUPPLEMENT MEDICARE PART A & B [employer] CROSS MEDEX SUPPLEMENT MEDICARE PART A & B Care Teams Bumper And Painter Relationship Specialty Start Date End Date Ronnie Burrows MD [address] [place] [address] PCP - General Family Medicine 10/28/22 Additional Source Comments The information contained in this document represents components of the legal health record. It is not the complete legal health record.[facility]
== END 2025-06-17 08:49 | disposition home or self-care (01) ==
LOC: HO.US 08:48
PROVIDERS: PCP Family Medicine; Visit Provider Internal Medicine
DX: R16.0 Hepatomegaly, not elsewhere classified (principal)
CPT/HCPCS: 76705; 76981

== ENCOUNTER → 2025-06-17 08:53 | Outpatient (BNV) | payer MEDICARE, SELFPAY | PROVIDERS: PCP Family Medicine; Visit Provider Radiology Diagnostic Radiology | DX: R16.0 Hepatomegaly, not elsewhere classified (principal) | CPT/HCPCS: 76705 ==

== ENCOUNTER 2025-07-10 06:14 | Outpatient (REF) | payer MEDICARE, SELFPAY ==
--- OUTSIDE RECORDS SUMMARY | 2025-07-10 06:16 | XMS_ITS | Clinical Summary ---
Author Organization [facility] Address [address] [address] [facility] [address] [place] [address] Phone Care Team Providers Care Bond Broker Name Role Phone Ronnie Burrows MD Primary [...] VACCINE (#1) 2025 COVID-19 VACCINE (1 - 2024-2 6 season) 2025 RSV VACCINE (1 - 1-dose [...] topic Medical Devices Not on file [place] [address] [place] [address] MEDEX SUPPLEMENT MEDICARE PART A & B Rule. MEDEX SUPPLEMENT MEDICARE PART A & B Rule. MEDEX SUPPLEMENT MEDICARE PART A & B Rule. MEDEX SUPPLEMENT MEDICARE PART A & B Rule. MEDEX SUPPLEMENT MEDICARE PART A & B [employer] (1BO[employer] CROSS MEDEX SUPPLEMENT MEDICARE PART A & B Care Teams Bond Broker Relationship Specialty Start Date End Date Ronnie Burrows MD [address] [place] [address] PCP - General Family Medicine 10/28/22 Additional Source Comments The information contained in this document represents components of the legal health record. It is not the complete legal health record.[facility]
--- OUTSIDE RECORDS SUMMARY | 2025-07-10 06:16 | XMS_ITS | Patient Health Record ---
Author Organization [facility] Address [address] [place] [address] Care Team Providers Care Deliverer Pharmacy Name Role Phone Kimber(inactive) Aaron CHOPRA Primary Care Provider U linden Washington Jr Ej Unavailable [phone] Reason For Referral No Information Medications Medication [...] Problem Status W/U Status Risk Notes Problem [id number] Colon cancer screening (Z12.11) Active confirmed Problem [id number] Encounter for other preprocedural examination (Z01.818) Active confirmed Plan Of Treatment Future Test Test Name Order Date COLONOSCOPY 03/03/2017 Insurance Providers Payer Name Payer Address Payer Phone Subscriber Number Group Number Insured Name Patient Relationship to Insured Coverage Start Date Coverage End Date [facility] [address] [place] [phone] [id number] DENNIS JUAREZ Self - patient is the insured Medical (General) History Medical History History ICD Code hypertension Surgical History Surgery Date(Month/Year) MASTOID INFECTION - AGE 17
--- OUTSIDE RECORDS SUMMARY | 2025-07-10 06:16 | XMS_ITS | Encounter Summary ---
Author Organization [facility] Address [address] [place] [address] Phone Care Team Providers Care Distribution Technician Name Role Phone Ronnie Burrows MD Primary Care Provider Encounter Details Date Type Department Care Team (Late st Contact Info) Description 02/11/2023 Procedure Pass [facility], [address] [address] Social History Tobacco Use Types Packs/Day Years [...] on filedocumented in this encounter Care Teams Distribution Technician Relationship Specialty Start Date End Date Ronnie Burrows MD [address] [place] [address] PCP - General Family Medicine 10/28/22 documented as of this encounter Additional Source Comments The information contained in this document represents components of the legal health record. It is not the complete legal health record.[facility]
[2025-07-10 08:40] LABS: PSA,Total (Free>4and<10) 3.56 ng/mL (0.00-4.00)
== END 2025-07-10 06:15 | disposition home or self-care (01) ==
LOC: HO.LAB 06:14
PROVIDERS: Nurse Practitioner Family; PCP Family Medicine; Visit Provider Family Medicine
DX: R97.20 Elevated prostate specific antigen [PSA] (principal); R33.9 Retention of urine, unspecified; Z12.5 Encounter for screening for malignant neoplasm of prostate
CPT/HCPCS: 36415; 84153

== ENCOUNTER 2025-07-15 09:32 | Outpatient (REF) | payer MEDICARE, SELFPAY ==
[2025-07-15 14:08] LABS: MANUAL DIFF FLAG NO
[2025-07-15 14:25] LABS: Hematocrit 46.6 % (42.0-52.0); Hemoglobin 15.5 g/dl (14.0-18.0); Imm Gran Abs Auto 0.01 X10*3/uL (0.00-0.03); Imm Gran Pct Auto 0.2 % (0.0-0.4); Lymphocytes Absolute Auto 1.4 X10*3/uL (1.2-4.9); Mean Corpuscular HGB Conc 33.3 g/dl (31.0-36.0); Mean Corpuscular Hemoglobin 33.7 pg (27.0-33.0); Mean Corpuscular Volume 101.3 fL (80.0-98.0); NRBC Abs Auto 0.000 X10*3/uL (0.0-0.012); NRBC Pct Auto 0.0 /100WBC (0.0-0.2); Platelet Count 210 X10*3/uL (160-400); Red Blood Count 4.60 X10*6/uL (4.60-5.80); White Blood Count 5.6 X10*3/uL (4.8-10.8)
[2025-07-15 14:44] LABS: Appearance Urine Clear; Glucose Urine UA >=1000 mg/dL (Negative); PH 6.0 (5.0-9.0); Specific Gravity - Urine 1.020 (1.005-1.025); UMIC TRIGGER UA YES
[2025-07-15 14:57] LABS: Alanine Aminotransferase 23 U/L (0-40); Albumin Level 4.0 g/dL (3.5-5.0); Alkaline Phosphatase 77 U/L (39-117); Anion Gap 10 (12-20); Aspartate Amino Transferase 46 U/L (5-37); Blood Urea Nitrogen 18 mg/dL (9-16); Calcium 8.8 mg/dL (8.4-10.2); Carbon Dioxide 28 mmol/L (22-29); Chloride 109 mmol/L (96-108); Estimated Glomerular Filt Rate > 60; Iron 53 mcg/dL (45-160); Percent Iron Saturation 23 % (15-50); Potassium 3.8 mmol/L (3.3-5.1); Sodium 143 mmol/L (135-145); Total Iron Binding Capacity 233 mcg/dL (228-428); Total Protein 7.1 g/dL (6.5-8.0); Unsaturated Iron Binding 180 ug/dL; Uric Acid 6.1 mg/dL (3.4-7.0)
== END 2025-07-15 09:33 | disposition home or self-care (01) ==
LOC: HO.WFDLDS 09:32
PROVIDERS: PCP Family Medicine; Visit Provider Family Medicine
DX: Z00.00 Encounter for general adult medical examination without abnormal findings (principal); Z13.820 Encounter for screening for osteoporosis; I10 Essential (primary) hypertension; M10.9 Gout, unspecified; E83.119 Hemochromatosis, unspecified; E55.9 Vitamin D deficiency, unspecified; I48.0 Paroxysmal atrial fibrillation; R97.20 Elevated prostate specific antigen [PSA]; M54.50 Low back pain, unspecified; Z79.01 Long term (current) use of anticoagulants; Z79.899 Other long term (current) drug therapy
CPT/HCPCS: 36415; 80053; 81001; 82306; 83540; 84550; 85025; 99212

== ENCOUNTER 2025-07-15 09:32 | Outpatient (AMB) | payer MEDICARE, SELFPAY ==
--- NOTE | 2025-07-15 09:35 | MHC.PC.OV ---
Vital Signs 07/15/25 09:44 Height 6 ft Weight 219 lb 7 oz BMI 29.8 BP 112/72 Blood Pressure Location Rt brachial Position Sitting Respiration 14 Pulse 78 Pulse Source Pulse Oximeter Temp 97.2 F Temp Source Temporal Artery Scan Pulse Oximetry (%) 98 Oxygen Delivery Method Room Air Intake Visit Reasons: f/u HTN, labs Intake Note: Price presents in the office today for a follow up to hypertension and his latest labs. Allergies atorvastatin Allergy (Severe, Verified 07/15/25 09:43) cognitive decline Medication List - Last Reconciled 07/15/25 by Ronnie Burrows MD apixaban (Eliquis) 5 mg PO BID dapagliflozin propanediol (Farxiga) 5 mg PO DAILY ezetimibe 10 mg PO DAILY 90 days finasteride 5 mg PO DAILY 90 days lisinopril-hydrochlorothiazide 20-12.5 mg 2 tabs PO DAILY metoprolol succinate ER 25 mg PO DAILY 90 days terazosin 5 mg PO BEDTIME 90 days trazodone 50 mg PO BEDTIME 90 days Tobacco use date assessed: 07/15/25 Dental Screening Dental Screen Date: 07/15/25 Did you have a dental visit in the last 12 months?: Yes Was dental information given to patient?: Patient has dentist HPI f/u HTN, labs HPI Details 69 y/o male presents to f/u hypertension, labs. BP today 112/72, 78p. He is on lisinopril-HCTZ 20-12.5mg daily, metoprolol 25mg daily. No recent labs to review. Hx hemochromatosis. Has been following up with Jodee Irizarry for elevated PSA levels. He has an appt. with her next month. Reports low back pain. Has been using a heating pad at night for relief. HPI Comments History of Present Illness Details Documentation assistance for Ronnie Burrows MD, was provided by Darek Parr,? Glass Lined Tank Repairer on 07/15/2025 at 10:31 AM TOÑO. Silas, Dr. Burrows, have read, observed, and verified documentation. ? PFSH Medical History Babesiosis Cardiomyopathy Hepatomegaly Hemochromatosis Gout Broken fibula Anticoagulant long-term use HTN (hypertension) PAF (paroxysmal atrial fibrillation) Surgical History S/P ablation of atrial fibrillation History of removal of skin mole History of laparoscopic cholecystectomy (04/04/23) History of liver biopsy History of esophagogastroduodenoscopy (EGD) Hx of colonoscopy History of right mastoidectomy Family History Father Diabetes Mother Afib Cardiac pacemaker Brother Afib Sister Afib Uterine cancer Social History (Updated 07/15/25 @ 09:44 by Keya Boles ACTING MANAGER) Household Members: Spouse Housing: House Alcohol intake: current Alcohol intake frequency: a few times a week Alcohol type: beer Patient Tobacco Use Status: Never used Tobacco e-Cigarette/Vaping Use: Never Used Second Hand Smoke Exposure: No service: No Current occupational status: retired Current occupational exposures/hazards: No Cognitive needs: No Hearing needs: No Vision needs: No Questionnaire Thrive Questionnaire Date Thrive assessed: 04/11/25 I am a: Patient What is your living situation today?: I have a steady place to live Within the past 12 months, did the food you bought not last and you didn't have the money to get more?: Never true Within the past 12 months, did you worry whether your food would run out before you got money to buy more?: Never true Do you have trouble paying for medicines?: No Do you have trouble getting transportation to medical appointments?: No Do you have trouble paying your heating and electricity bill?: No Do you have trouble taking care of your child, family member or friend?: No Do you have trouble with day-to-day activities such as bathing, preparing meals, shopping, managing finances, etc.?: No Are you currently unemployed and looking for a job?: No Are you interested in more education?: No Please select the resources that you would like help with: None Currently or been in a relationship where the following occur: No concerns reported THRIVE Score: 0 LEXA-7 AMB Questionnaire LEXA-7 Date LEXA - 7 assessed: 04/11/25 Source: Developed by Drs. Addy Larson, Nancy Hernández, Star Goldstein and colleagues, with an educational danny from [employer]. Review of Systems Const Denies chills, Denies fatigue, Denies fever(s), Denies headache(s) and Denies weakness ENT Denies dizziness and Denies headache(s) Card Denies dyspnea Resp Denies cough, Denies dyspnea, Denies wheezing and Denies other (shortness of breath) Musc Denies numbness and Denies tingling Neuro Denies dizziness, Denies headache(s), Denies numbness, Denies tingling and Denies weakness Psych Denies anxiety and Denies depression Endo Denies fatigue Aller/Immun Denies wheezing Physical exam (Primary Care) Vital Signs: Last Vital Signs Temp 97.2 F 07/15/25 09:44 Pulse 78 07/15/25 09:44 Resp 14 07/15/25 09:44 BP 112/72 07/15/25 09:44 Pulse Ox 98 07/15/25 09:44 Oxygen Delivery Method Room Air 07/15/25 09:44 BMI result Body Mass Index 29.8 Tobacco/Smoking Status: Tobacco use Status Tobacco use date assessed 07/15/25 07/15/25 09:47 Patient Tobacco Use Status Never used Tobacco 07/15/25 09:44 e-Cigarette/Vaping Use Never Used 07/15/25 09:44 Thrive Assessment: Date of Thrive Assessment Date Thrive assessed 04/11/25 07/15/25 09:37 Currently or been in a relationship where the following occur: No concerns reported Const General: well developed; No acute distress Nutritional Appearance: well nourished Orientation/consciousness: patient oriented x3 HENMT Head: Yes normocephalic and Yes atraumatic Eyes General: appearance normal, both eyes and all related structures Pupils: Equal, round and reactive pupils present EOM: EOMs intact bilaterally Resp Effort & Inspection: normal respiratory effort Auscultation: clear to auscultation bilaterally Cardio Rate: regular rate Rhythm: regular rhythm Heart sounds: S1 normal heart sound present, S2 normal heart sound present, no gallops, no murmurs and no rubs Neuro General: patient oriented x3 and gait normal Cranial nerves: Yes Equal, round and reactive pupils present Psych Affect: normal affect Coding Level of Care Code Est Pt Level 4 (56619) Diagnoses HTN (hypertension) I10 PAF (paroxysmal atrial fibrillation) I48.0 Hemochromatosis E83.119 Elevated PSA R97.20 Low back pain M54.50 Screening for osteoporosis Z13.820 Assessment & Plan Assessment & Plan (1) HTN (hypertension): Code(s): I10 - Essential (primary) hypertension Category: Medical Plan: Blood pressure is well controlled. Goal is less than 140/90 Continue current medication (2) PAF (paroxysmal atrial fibrillation): Code(s): I48.0 - Paroxysmal atrial fibrillation Category: Medical Plan: Stable on Eliquis And metoprolol. (3) Hemochromatosis: Code(s): E83.119 - Hemochromatosis, unspecified Category: Medical Plan: Patient will get labs drawn today Follow-up with Hematology-Oncology as recommended (4) Elevated PSA: Code(s): R97.20 - Elevated prostate specific antigen [PSA] Category: Medical Plan: PSA was elevated. Followed by Urology Most recent PSA is less than 4.0 Continue following with Urology as recommended (5) Low back pain: Code(s): M54.50 - Low back pain, unspecified Category: Medical Plan: Low back pain in L4-L5 region History T12 endplate compression fracture seen MRI Will check x-ray of lumbar spine to rule out other vertebral injuries (6) Screening for osteoporosis: Code(s): Z13.820 - Encounter for screening for osteoporosis Category: Medical Plan: History of T12 endplate compression fracture seen incidentally on MRI. 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 Panel Today I10 - Essential (primary) hypertension Complete Blood Count Auto Diff Today I10 - Essential (primary) hypertension, Z00.00 - Encounter for general adult medical examination without abnormal findings XR lumbar spine 2-3V Today M54.50 - Low back pain, unspecified IRON PROFILE Today E83.119 - Hemochromatosis, unspecified Uric Acid Today M10.9 - Gout, unspecified Vitamin D 25-OH Total Today E55.9 - Vitamin D deficiency, unspecified, Z13.820 - Encounter for screening for osteoporosis XR DEXA axial skeleton Today M81.0 - Age-related osteoporosis without current pathological fracture, S22.080A - Wedge compression fracture of T11-T12 vertebra, initial encounter for closed fracture
--- OUTSIDE RECORDS SUMMARY | 2025-07-15 09:39 | XMS_ITS | Patient Health Record ---
Author Organization [facility] Address [address] [place] [address] Care Team Providers Care Functional Support Analyst Name Role Phone Kimber(inactive) Aaron CHOPRA Primary Care Provider U linden Washington Jr Ej Unavailable [phone] Reason For Referral No Information Medications [...] Problem Status W/U Status Risk Notes Problem Colon cancer screening (103659018) Colon cancer screening (Z12.11) Active confirmed Problem Pre-procedure evaluation check (450261849) Encounter for other preprocedural examination (Z01.818) Active confirmed Plan Of Treatment Future Test Test Name Order Date COLONOSCOPY 03/03/2017 Insurance Providers Payer Name Payer Address Payer Phone Subscriber Number Group Number Insured Name Patient Relationship to Insured Coverage Start Date Coverage End Date [facility] [address] [facility] [place] [phone] [id number] DENNIS JUAREZ Self - patient is the insured Medical (General) History Medical History History ICD Code hypertension Surgical History Surgery Date(Month/Year) MASTOID INFECTION - AGE 17
--- OUTSIDE RECORDS SUMMARY | 2025-07-15 09:39 | XMS_ITS | Clinical Summary ---
Author Organization [facility] Address [address] [place] [address] Phone Care Team Providers Care Splunk Developer Name Role Phone Ronnie Burrows MD Primary [...] topic Medical Devices Not on file [place] [address] [place] [address] MEDEX SUPPLEMENT MEDICARE PART A & B [employer] MEDEX SUPPLEMENT MEDICARE PART A & B [employer] MEDEX SUPPLEMENT MEDICARE PART A & B [employer] MEDEX SUPPLEMENT MEDICARE PART A & B [employer] MEDEX SUPPLEMENT MEDICARE PART A & B [employer] MEDEX SUPPLEMENT MEDICARE PART A & B Care Teams Splunk Developer Relationship Specialty Start Date End Date Ronnie Burrows MD [address] [place] [address] PCP - General Family Medicine 10/28/22 Additional Source Comments The information contained in this document represents components of the legal health record. It is not the complete legal health record.[facility]
--- OUTSIDE RECORDS SUMMARY | 2025-07-15 09:39 | XMS_ITS | Encounter Summary ---
Author Organization [facility] Address [address] [address] [place] [address] Phone Care Team Providers Care Ramp Attendant Name Role Phone Ronnie Burrows MD Primary Care Provider Encounter Details Date Type Department Care Team (Late st Contact Info) Description 02/11/2023 Procedure Pass [facility], [address] [address] Social History Tobacco Use Types Packs/Day Years [...] on filedocumented in this encounter Care Teams Ramp Attendant Relationship Specialty Start Date End Date Ronnie Burrows MD [address] [place] [address] PCP - General Family Medicine 10/28/22 documented as of this encounter Additional Source Comments The information contained in this document represents components of the legal health record. It is not the complete legal health record.[facility]
[2025-07-15 09:44] VITALS: BP 112/72; PULSE 78; RESP 14; TEMP 36.2; O2SAT 98; BMI 29.8
== END 2025-07-15 10:35 | disposition home or self-care (01) ==
LOC: HO.HMCFM 09:33
PROVIDERS: PCP Family Medicine; Visit Provider Family Medicine
DX: I10 Essential (primary) hypertension (principal); I48.0 Paroxysmal atrial fibrillation; E83.119 Hemochromatosis, unspecified; R97.20 Elevated prostate specific antigen [PSA]; M54.50 Low back pain, unspecified; Z13.820 Encounter for screening for osteoporosis

== ENCOUNTER 2025-07-26 08:51 | Outpatient (REF) | payer MEDICARE, SELFPAY ==
--- NOTE | ~2025-07-26 | XR_ITS ---
EXAMINATION: XR LUMBOSACRAL SPINE CLINICAL INFORMATION: M54.50 - Low back pain, unspecified COMPARISON: None available. TECHNIQUE: Three views of the lumbosacral spine. FINDINGS: No significant scoliosis. There is a normal lordosis. There is a 3 mm degenerative retrolisthesis of L3 on L4. Alignment is otherwise anatomic. There is an age-indeterminate superior endplate compression deformity of T12, with approximately 20% loss of height. No additional compression deformity. No fracture or suspicious bone lesion. Severe disc degeneration at L3-4 with disc vacuum phenomenon present. There is otherwise moderate disc degeneration present with relative sparing of L5-S1. There is normal facet alignment. There are degenerative hypertrophic facet changes most notable L3-S1. The sacrum is intact. There are mild to moderate degenerative changes in both SI joints. Soft tissues appear normal. There are cholecystectomy clips in the right upper quadrant. XR/XR lumbar spine 2-3V IMPRESSION: 1. No definite acute bony or soft tissue abnormality. 2. There is a likely chronic mild superior endplate compression deformity of T12. 3. Moderate lumbar spondylosis, most significant at L3-4. Electronically signed by: Barry Echevarria MD 07/26/2025 09:09 AM EDT
== END 2025-07-26 08:52 | disposition home or self-care (01) ==
LOC: HO.XRAY 08:51
PROVIDERS: PCP Family Medicine; Visit Provider Family Medicine
DX: M54.50 Low back pain, unspecified (principal)
CPT/HCPCS: 72100

== ENCOUNTER → 2025-07-26 08:55 | Outpatient (BNV) | payer MEDICARE, SELFPAY | PROVIDERS: PCP Family Medicine; Visit Provider Radiology Diagnostic Radiology | DX: M47.816 Spondylosis without myelopathy or radiculopathy, lumbar region (principal) | CPT/HCPCS: 72100 ==

== ENCOUNTER 2025-08-20 08:17 | Outpatient (AMB) | payer MEDICARE, SELFPAY ==
--- NOTE | 2025-08-20 08:27 | MHC.OFFVIS ---
Intake Visit Reasons: 4m/PSA Intake Note: Patient presents to office today for 4m follow up with PSA 07/10 Total PSA:3.56 Urology Medications: Terazosin, Finasteride Blood Thinner: Eliquis PVR:910ml Front Desk Manager Required: No Accompanied by: Self / Same As Patient Allergies atorvastatin Allergy (Severe, Verified 08/20/25 09:09) cognitive decline Medication List - Last Reconciled 08/20/25 by Jodee Irizarry BINDERY MACHINE SETTER/SET UP OPERATOR- apixaban (Eliquis) 5 mg PO BID dapagliflozin propanediol (Farxiga) 5 mg PO DAILY ezetimibe 10 mg PO DAILY 90 days finasteride 5 mg PO DAILY 90 days lisinopril-hydrochlorothiazide 20-12.5 mg 2 tabs PO DAILY metoprolol succinate ER 25 mg PO DAILY 90 days terazosin 5 mg PO BEDTIME 90 days trazodone 50 mg PO BEDTIME 90 days HPI Comments Details: Price is a pleasant 69-year-old male patient of Dr. Burrows. He has a past medical history of cardiomyopathy follows with Dr. Luna, hepatomegaly, hemochromatosis follows with Dr. Christianson, gout, hypertension, paroxysmal atrial fibrillation on anticoagulation. He presents to the office today for follow-up of his incomplete bladder emptying/retention, overflow incontinence and elevated PSA. In discussion with the patient today he reports to be doing and feeling well. He reports having recently follow-up with PCP for ongoing lumbar discomfort he has been experiencing in his recently had imaging that noted degeneration. He reports compliance with finasteride and terazosin as prescribed. Unable to obtain urine for urinalysis today as patient unable to void however, PVR 910 mL. He has previously trialed bethanechol however was experiencing abdominal fullness and difficulty with urination. We have also attempted to increase terazosin however he experiences increase in dizziness. We discussed at length incomplete bladder emptying as well as further treatment options and risks and benefits of these treatment options. We discussed in office cystoscopy for further assessment evaluation.He reports feeling no bothersome urinary issues or concerns. 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 Recent PSA results reviewed with the patient today. PSAs are as follows: PSAs: 05/23 2.1, 05/24 3.1, 11/26 5.7, 12/24 5.9, 03/26 5.6 PSA free 14%, 01/25 3.4, 04/26 4.3, 07/27 3.6 Previous retroperitoneal ultrasound 04/25 bilateral kidneys with no calculi, lesions, and or hydronephrosis. The bladder is distended and normal. Bilateral jets are demonstrated. Pre void bladder volume is approximately 1200 mL. Postvoid bladder volume is approximately a 1000 mL. Prostate measures approximately 70 mL. He denies urinary urgency, urinary frequency, incontinence, nocturia, hematuria, dysuria, foul smelling urine, changes to urinary stream, flank pain, fever, and or chills. Discussed correlation of incomplete bladder emptying with overall health. He otherwise offers no other issues or concerns at this time. [facility] Medical History Babesiosis Cardiomyopathy Hepatomegaly Hemochromatosis Gout Broken fibula Anticoagulant long-term use HTN (hypertension) PAF (paroxysmal atrial fibrillation) Surgical History S/P ablation of atrial fibrillation History of removal of skin mole History of laparoscopic cholecystectomy (04/04/23) History of liver biopsy History of esophagogastroduodenoscopy (EGD) Hx of colonoscopy History of right mastoidectomy Family History Father Diabetes Mother Afib Cardiac pacemaker Brother Afib Sister Afib Uterine cancer Social History Household Members: Spouse Housing: House Alcohol intake: current Alcohol intake frequency: a few times a week Alcohol type: beer Patient Tobacco Use Status: Never used Tobacco e-Cigarette/Vaping Use: Never Used Second Hand Smoke Exposure: No service: No Current occupational status: retired Current occupational exposures/hazards: No Cognitive needs: No Hearing needs: No Vision needs: No Review of Systems Const Reports no additional complaints Eyes Reports no additional complaints ENT Reports no additional complaints Card Reports as per HPI Resp Reports no additional complaints GI Reports as per HPI Reports as per HPI Musc Reports no additional complaints Neuro Reports no additional complaints Psych Reports no additional complaints Endo Reports no additional complaints [place]/Lymph Reports as per HPI Aller/Immun Reports no additional complaints Physical Exam Const General: cooperative, healthy appearing, comfortable, no acute distress, well developed, alert and awake Orientation/consciousness: patient oriented x3 Limitations: no limitations HEENT Head: Yes normal to inspection, Yes normocephalic and Yes atraumatic Ears: hearing grossly normal bilaterally Eyes General: appearance normal, both eyes and all related structures Neck Neck: Yes normal visual inspection and Yes trachea midline Chest Chest palpation & inspection: normal inspection of the chest Resp Effort & Inspection: normal respiratory effort and able to speak in complete sentences Cardio Rate: regular rate GI Inspection: Yes normal to inspection General: Yes no CVA tenderness Back/Spine/Pelvis Back: no CVA tenderness Skin General skin exam: no rashes or lesions noted Neuro General: patient oriented x3 Extrem General: Yes normal to inspection Psych Appearance: grossly normal and well kempt Mental Status: mental status grossly normal Speech and movement: Normal speech and movement present and Clear speech present Affect: normal affect Attitude: cooperative Thought process: Normal thought process present Thought content: Normal thought content present Insight: Fair insight present (Psych) Judgement: Fair judgement present (Psych) Office Procedures Post Void Residual Post Residual Void Post Void Residual (PVR): [id number] [id number] Void Residual by ultrasound Assessment & Plan Assessment & Plan (1) Elevated PSA: Code(s): R97.20 - Elevated prostate specific antigen [PSA] Category: Medical (2) Incomplete bladder emptying: Code(s): R33.9 - Retention of urine, unspecified Category: Medical (3) Urinary retention: Code(s): R33.9 - Retention of urine, unspecified Category: Medical Plan Unable to obtain urine for urinalysis today as patient unable to void however PVR 910 mL. We did discuss incomplete bladder emptying/urinary retention at length we discussed further treatment options and risks and benefits of these treatment options. He does not wish to perform CIC and or insert Sutton catheter today Recent PSA results reviewed with the patient today; as noted above. Continue finasteride and terazosin as prescribed He is happy with his current voiding parameters. We did discuss affects of incomplete bladder emptying/urinary retention on overall health without intervention. Follow-up next available in office cystoscopy for further assessment evaluation Follow-up per doctor's orders; or sooner with any issues, concerns, and or questions. Orders: Orders AMB Post Void Residual by ultrasound Today R33.9 - Retention of urine, unspecified Patient Instructions: The patient had an opportunity to ask questions regarding the treatment plan. All questions were answered. Physical exam, labs, and imaging were discussed and reviewed in detail. As well as risks, benefits, and discussion of treatment choices. No major barriers to understanding were identified. The patient expressed understanding and agreement with the above treatment plan. The patient was made aware they should contact our office by phone for worsening of their current condition, the appearance of new symptoms, or with any questions or concerns. Compliance is encouraged with any medications and follow up testing that is ordered. It is a privilege to be allowed the opportunity to participate in? your urological care.? Again, if you have any questions or concerns If you have any questions or concerns please do not hesitate to contact me. The office is [phone]. This note is constructed using voice recognition software. While every effort has been made to ensure accuracy surveyor helper rod errors may have been included. Yours sincerely, NELDA Pina Coding Level of Care Code Est Pt Level 3 (55563) Complex EM visit Add On G2211 Diagnoses Elevated PSA R97.20 Incomplete bladder emptying R33.9 Urinary retention R33.9 CPT Codes Post Residual Void - PVR CPT Code: 02381-Dmmn Void Residual by ultrasound ([id number])
== END 2025-08-20 09:08 | disposition home or self-care (01) ==
LOC: HO.HUSH 08:18
PROVIDERS: PCP Family Medicine; Visit Provider Nurse Practitioner Family
DX: R97.20 Elevated prostate specific antigen [PSA] (principal); R33.9 Retention of urine, unspecified
CPT/HCPCS: 99213; G2211

== ENCOUNTER → 2025-08-20 08:17 | Outpatient (BNVA) | payer MEDICARE, SELFPAY | PROVIDERS: PCP Family Medicine; Visit Provider Nurse Practitioner Family | DX: R97.20 Elevated prostate specific antigen [PSA] (principal); R33.9 Retention of urine, unspecified | CPT/HCPCS: 51798; 99212 ==

== ENCOUNTER 2025-09-19 08:31 | Outpatient (REF) | payer MEDICARE, SELFPAY ==
--- NOTE | ~2025-09-19 | MM_ITS ---
EXAMINATION: DXA BONE DENSITY AXIAL HISTORY: M81.0 - Age-related osteoporosis without current pathological fracture TECHNIQUE: [employer] Dual energy absorptiometry (DEXA) of the lumbar spine, total left hip, and femoral neck was performed. COMPARISON: There are no prior studies for comparison. FINDINGS: The bone mineral density of the lumbar spine is 1.194 g/cm2, corresponding to a T-score of -0.1, and a Z-score of -0.2. This is indicative of normal bone mineral density. The bone mineral density of the left total hip is 1.075 g/cm2, corresponding to a T-score of -0.2, and a Z-score of 0.1. This is indicative of normal bone mineral density. The bone mineral density of the left femoral neck is 0.970 g/cm2, corresponding to a T-score of -0.8, and a Z-score of 0.0. This is indicative of normal bone mineral density. MM/XR DEXA axial skeleton IMPRESSION: Based on bone mineral density, and according to World Health Organization (WHO) criteria, the diagnosis is consistent with normal bone mineral density. Statistically, 68% of repeat scans fall within 1 SD (+/- 0.010 g/cm2 for AP spine L1-L4) and 1 SD (+/- 0.012 g/cm2 for femur total) FRAX is a trademark of the [employer], a World Health Organization (WHO) Collaborating Center. Electronically signed by: Addy Barajas MD 09/19/2025 09:13 AM [facility]
--- OUTSIDE RECORDS SUMMARY | 2025-09-19 08:57 | XMS_ITS | Patient Health Record ---
Author Organization [facility] Address [address] [place] [address] Care Team Providers Care Bargeman Name Role Phone Kimber(inactive) Aaron HCOPRA Primary Care Provider U linden Washington Jr Ej Unavailable Reason For Referral No Information Medications Medication SIG (Take, Route, Frequency, Duration) Notes Start Date End Date Status Lisinopril-hydroCHLOROthia zide 20-12.5 MG Tablet 1 tablet Orally Once a day Active Social History Tobacco Use: Social History Observation Description Date Details (start date - stop date) Never Smoker NA - NA Social History Drugs/Alcohol: Social Info Question Answer Notes Alcohol Screen Did you have a drink containing alcohol in the past year? Yes How often did you have a drink containing alcohol in the past year? 2 to 3 times a week (3 points) How many drinks did you have on a typical day when you were drinking in the past year? 1 or 2 drinks (0 point) How often did you have 6 or more drinks on one occasion in the past year? 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 [employer] Problems Problem Type SNOMED Code ICD Code Onset Dates Problem Status W/U Status Risk Notes Problem Colon cancer screening (276171877) Colon cancer screening (Z12.11) Active confirmed Problem Pre-procedure evaluation check (371014423) Encounter for other preprocedural examination (Z01.818) Active confirmed Plan Of Treatment Future Test Test Name Order Date COLONOSCOPY 03/03/2017 Insurance Providers Payer Name Payer Address Payer Phone Subscriber Number Group Number Insured Name Patient Relationship to Insured Coverage Start Date Coverage End Date [facility] [address] [facility] [place] [phone] [id number] DENNIS JUAREZ Self - patient is the insured Medical (General) History Medical History History ICD Code hypertension Surgical History Surgery Date(Month/Year) MASTOID INFECTION - AGE 17
== END 2025-09-19 08:32 | disposition home or self-care (01) ==
LOC: HO.MAMMO 08:31
PROVIDERS: PCP Family Medicine; Visit Provider Family Medicine
DX: M81.0 Age-related osteoporosis without current pathological fracture (principal); S22.080A Wedge compression fracture of T11-T12 vertebra, initial encounter for closed fracture
CPT/HCPCS: 77080

== ENCOUNTER → 2025-09-19 08:45 | Outpatient (BNV) | payer MEDICARE, SELFPAY | PROVIDERS: PCP Family Medicine; Visit Provider Radiology Diagnostic Radiology | DX: M81.0 Age-related osteoporosis without current pathological fracture (principal) | CPT/HCPCS: 77080 ==